=== PATIENT | female | born 1930 | race Caucasian/White ===

== ENCOUNTER 2016-07-22 00:56 | Inpatient (IN) | payer MEDICARE ==
[~2016-07-22] VITALS: Ht 165.1 cm; Wt 66.8 kg
[2016-07-22] VITALS (7 sets, daily range): BP systolic 94–166; BP diastolic 49–98
[~2016-07-22 00:56] MED LIST: AC500T PO; ALDACTONE25 MG; ALMG355B PO; AML5T; APIX5TAB PO; APIX5TAB2 PO; ASP81CT; ASPI-999 PO; ATOR40TA PO; ATOR40TA70 PO; ATOR80TA; ATOR80TA2 PO; ATR20T; ATRV10T; AZIT-21 PO; CHOL10003 PO; CHOL400T3; CHOL400T43 PO; CLOP75TA; CLOP75TA28 PO; DCS100C; DCS100C PO; DESV50TA PO; DESVENLAFAXINE SUCCINATE PO; DIGO250T; ESCT10T; FESO4TAB PO; FESO4TAB2 PO; FISH1CAP15 PO; FRSM20T PO; FRSM40T; FURO40TA4; FURO40TA4 PO; GLIP5TAB13 PO; GLIPIZIDE ER; GLUCOVANCE; HCTZ12.5T; IPRA3AMP11 INH; KCL20TCR; KCL20TCR PO; LEVO25TA5 PO; LINA5TAB PO; LISI40TA; LOPE2CAP PO; LSNP20T; LVT.025T PO; LVT.05T; METO-270 PO; METO25TA PO; METO50TA7; METO50TA7 PO; MTP25TSR PO; MTP50T; NYST1POW15 TOP; OMEG-12 PO; OMEG-160 PO; OMEG-57 PO; OMEG1200 PO; OMEG1CAP51; OMEG1CAP74 PO; OMG1KC; PANT40TA3 PO; PERP1TAB5; PERP1TAB5 PO; PGLT30T; PHEN-633 PO; PHEN100C11 PO; PHN100C PO; PNT40TEC PO; POTA-51 PO; POTA10TA14 PO; PRINIVIL; SACU1TAB PO; SENN-35 PO; SITA50TA PO; SPIR25TA3 PO; THYR30TA21; THYR60TA2; THYROID; TROS60CA; [UNRECOGNIZED DRUG - CODE]; [UNRECOGNIZED DRUG - OTHER]
--- NOTE | 2016-07-22 01:01 | ED Chest Pain ---
General Chief Complaint: Chest Pain Stated Complaint: CHEST PAIN Source: family, EMS, RN notes reviewed Exam Limitations: language barrier (patient is aphasic) History of Present Illness Time seen by provider: 01:05 Initial Comments dyspnea and chest pain @ midnight that was relieved c/ one SL NTG. Timing/Duration: resolved prior to arrival Severity/Quality: moderate Location: substernal Radiation: other (unknown) Activities at Onset: none, rest Prior CP/Workup: cardiac cath, echocardiography, heart attack Modifying Factors: improves with nitroglycerin ASA po HAND CLIPPER: Yes NTG SL HAND CLIPPER: Yes Associated Symptoms: shortness of breath Allergies and Home Medications Allergies Coded Allergies: Penicillins (Verified Allergy, Unknown, 03/24/07) Sulfa (Sulfonamide Antibiotics) (Unverified Allergy, Unknown, 03/24/14) Home Medications Acetaminophen 500 Mg Tablet 500 MG PO Q6H PRN PRN PAIN (Reported) Apixaban 5 Mg Tablet #60 5 MG PO BID Prescribed by: JS HERRERA on 07/06/16 0853 Aspirin 81 Mg Tab.chew #0 81 MG PO DAILY@0900 OVER THE COUNTER Prescribed by: JS HERRERA on 07/06/16 0845 Atorvastatin Calcium 40 Mg Tablet 40 MG PO HS (Reported) Cholecalciferol 1,000 Unit Tablet 1,000 UNIT PO DAILY (Reported) Desvenlafaxine Succinate 50 Mg Tab.sr.24h 50 MG PO DAILY (Reported) Fesoterodine Fumarate 4 Mg Tab.sr.24h 4 MG PO DAILY (Reported) Furosemide 40 Mg Tablet #30 40 MG PO DAILY Prescribed by: JS HERRERA on 07/06/16 0853 Levothyroxine Sodium 25 Mcg Tablet 25 MCG PO DAILY (Reported) Metoprolol Succinate 25 Mg Tab.er.24h #30 25 MG PO DAILY Prescribed by: JS HERRERA on 07/06/16 0853 [place]-3/Dha/Epa/Fish Oil 1 Each Capsule 1,000 MG PO DAILY (Reported) Pantoprazole Sodium 40 Mg Tablet.dr 40 MG PO DAILY (Reported) Perphenazine/Amitriptyline HCl 1 Each Tablet 1 TAB PO HS (Reported) Phenytoin Sodium Extended 100 Mg Capsule 100 MG PO BID (Reported) Potassium Chloride 20 Meq Tablet.er 20 MEQ PO DAILY (Reported) Sacubitril/Valsartan 1 Each Tablet #60 2 TAB PO BID Prescribed by: JS HERRERA on 07/06/16 0853 Sitagliptin Phosphate 50 Mg Tablet 50 MG PO DAILY (Reported) Spironolactone 25 Mg Tablet #30 25 MG PO DAILY Prescribed by: JS HERRERA on 07/06/16 0853 Review of Systems Constitutional: see HPI All Other Systems Reviewed Negative Unless Noted: Yes (Negative excepted noted.) Past Stbxzts-Nkenfg-Jsipzv Hx Patient Social History 2nd Hand Smoke Exposure: No Recent Foreign Travel: No Contact w/Someone Who Travel: No Recent Hopitalizations: Yes (05/28/16) Immunizations Up To Date Tetanus Booster (TDap): Unknown Date of Pneumonia Vaccine: Apr 17, 2010 Date of Influenza Vaccine: Sep 06, 2014 Seasonal Allergies Seasonal Allergies: No Surgeries HX Surgeries: Yes Surgeries: Abdominal, Cardiac, CABG, Eye Surgery, Hysterectomy, Joint Replacement, Oophorectomy, Orthopedic Respiratory Hx Respiratory Disorders: Yes Respiratory Disorders: Pulmonary Embolism Cardiovascular Hx Cardiac Disorders: Yes (CABG X3 VESSELS, CHF) Cardiac Disorders: Chronic Edema/Swelling, Coronary Artery Disease, Deep Vein Thrombosis, Heart Attack, High Cholesterol, Hypertension Neurological Hx Neurological Disorders: Yes (CVA-RIGHT SIDE WEAKNESS AND EXPRESSIVE APHASIA) Neurological Disorders: Stroke 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 System Hx 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 Disorders: Yes (HYST) Sexually Transmitted Disease: No HIV/AIDS: No Female 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 Disorders: Denies 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: Hysterectomy, Menopausal Genitourinary Hx Genitourinary Disorders: Yes (RENAL INSUFFICIENCY ) Genitourinary Disorders: Renal Failure Gastrointestinal Hx Gastrointestinal Disorders: Yes Gastrointestinal Disorders: Gastroesophageal Reflux, Chronic Constipation Musculoskeletal Hx Musculoskeletal Disorders: Yes (FALLS) Musculoskeletal Disorders: Degenerate Disk Disease, Arthritis, Chronic Back Pain Endocrine Hx Endocrine Disorders: Yes Endocrine Disorders: Hypothyroidsim, Diabetes, Non-Insulin dep HEENT HX ENT Disorders: Yes (LEFT EYE CATARACT REMOVAL) HEENT Disorders: Cataract Loss of Vision: Denies Hearing Impairment: Hard of Hearing Cancer Hx Cancer: Yes Cancer: Melanoma Psychosocial Hx Psychiatric Problems: Yes Behavioral Health Disorders: Sleep Difficulties, Anxiety, Depression Integumentary HX Skin/Integumentary Disorder: Yes Skin/Integumentary Disorders: Psoriasis Blood Transfusions Hx Blood Disorders: Yes (PE) Adverse Reaction to a Blood Tr: Yes (fever) Physical Exam Vital Signs Vital Sign - Last 12Hours 07/22/16 00:58 Temp 98.4 Pulse 97 Resp 18 B/P 139/60 Pulse Ox 100 O2 Delivery Nasal Cannula Capillary Refill : General Appearance: No Apparent Distress WD/WN Neck: Normal Inspection Respiratory: No Respiratory Distress Cardiovascular: Regular Rate, Rhythm Gastrointestinal: Soft Rectal: Deferred Extremity: No Pedal Edema Neurologic/Psychiatric: Alert No Motor/Sensory Deficits Skin: Warm/Dry Progress/Results/Core Measures Results/Orders Lab Results Laboratory Tests Test 07/22/16 01:00 07/22/16 02:49 Range/Units Alanine Aminotransferase (ALT/SGPT) 24 0-55 U/L Albumin 3.9 3.2-4.5 G/DL Alkaline Phosphatase 81 40-136 U/L Anion Gap 16 H 5-14 MMOL/L Aspartate Amino Transf (AST/SGOT) 25 5-34 U/L B-Type Natriuretic Peptide 721.2 H <100.0 PG/ML BUN/Creatinine Ratio 11 Basophils # (Auto) 0.0 0.0-0.1 10^3/uL Basophils (%) (Auto) 0 0-10 % Blood Urea Nitrogen 14 7-18 MG/DL Calcium Level 9.1 8.5-10.1 MG/DL Carbon Dioxide Level 23 21-32 MMOL/L Chloride Level 103 98-107 MMOL/L Creatinine 1.29 0.60-1.30 MG/DL Eosinophils # (Auto) 0.1 0.0-0.3 10^3/uL Eosinophils (%) (Auto) 2 0-10 % Estimat Glomerular Filtration Rate 39 Glucose Level 161 H 70-105 MG/DL Hematocrit 39 35-52 % Hemoglobin 13.0 11.5-16.0 G/DL Lipase 47 8-78 U/L Lymphocytes # (Auto) 2.2 1.0-4.0 X 10^3 Lymphocytes (%) (Auto) 31 12-44 % Magnesium Level 1.8 1.8-2.4 MG/DL Mean Corpuscular Hemoglobin 33 25-34 PG Mean Corpuscular Hemoglobin Concent 34 32-36 G/DL Mean Corpuscular Volume 99 80-99 FL Mean Platelet Volume 10.9 H 7.4-10.4 FL Monocytes # (Auto) 0.5 0.0-1.0 X 10^3 Monocytes (%) (Auto) 7 0-12 % Neutrophils # (Auto) 4.3 1.8-7.8 X 10^3 Neutrophils (%) (Auto) 61 42-75 % Phenytoin (Dilantin) Level 3.3 L 10.0-20.0 UG/ML Platelet Count 146 130-400 10^3/uL Potassium Level 3.3 L 3.6-5.0 MMOL/L Red Blood Count 3.94 L 4.35-5.85 10^6/uL Red Cell Distribution Width 14.2 10.0-14.5 % Sodium Level 142 135-145 MMOL/L Total Bilirubin 0.5 0.1-1.0 MG/DL Total Protein 6.2 L 6.4-8.2 G/DL Troponin I < 0.30 0.90 *H <0.30 NG/ML White Blood Count 7.0 4.3-11.0 10^3/uL My Orders Orders-ANNIKA SUTHERLAND DO Saline Lock/Iv-Start (07/22/16 01:02) Ekg Tracing (07/22/16 01:02) BNP (07/22/16 01:02) Cbc With Automated Diff (07/22/16 01:02) Comprehensive Metabolic Panel (07/22/16 01:02) Lipase (07/22/16 01:02) Magnesium (07/22/16 01:02) Phenytoin (Dilantin) (07/22/16 01:02) Troponin I (07/22/16 01:02) Ua Culture If Indicated (07/22/16 01:02) Chest 1 View, Ap/Pa Only (07/22/16 01:02) Troponin I (07/22/16 02:47) Vital Signs/I&O Vital Sign - Last 12Hours 07/22/16 07/22/16 00:58 00:58 Temp 98.4 Pulse 97 Resp 18 B/P 139/60 Pulse Ox 100 O2 Delivery Nasal Cannula ECG Initial ECG Impression Date: Jul 22, 2016 Initial ECG Impression Time: 00:58 Initial ECG Rate: 97 Initial ECG Rhythm: Normal Sinus Initial ECG Impression: Nonspecific Changes Initial ECG Comparisson: Unchanged Comment LVH c/ IVCD and secondary repolarization abnormality Diagnostic Imaging Diagonstic Imaging: Xray Plain Films/CT/US/NM/MRI: chest Reviewed: Reviewed by Me (chronic changes) Departure Communication Time/Spoke to Admitting Phy: 03:20 Time/Spoke to Consulting Physi: 03:25 Impression Impression: Primary Impression: Chest pain Additional Impressions: Elevated troponin I measurement History of CHF (congestive heart failure) CAD (coronary artery disease) Disposition: ADMITTED INPATIENT Condition: Stable Decision to Admit Reason: Admit from ER (General) Decision to Admit/Date: Jul 22, 2016 Time/Decision to Admit Time: 03:25 Departure-Patient Inst. Referrals: OUSMANE LONG DO (PCP/Family) Primary Care Physician ANNIKA SUTHERLAND DO Jul 22, 2016 01:01
--- OUTSIDE RECORDS SUMMARY | 2016-07-22 01:03 | XMS REPORT | Continuity of Care Document ---
Author Author [facility] Organization [facility] Address Unknown Phone Unavailable Care Team Providers Care Senior Storage Engineer Name Role Phone OUSMANE LONG DO PCP Insurance Providers Payer Name Policy Number Subscriber Name Relationship Wps Medicare [id number] Lupe Verde 19 Self / Same As Patient Blue Cross [facility] Supp [id number] Lupe Verde 19 Self / Same As Patient Advance Directives Directive Response Recorded Date/Time Advance Directives No 04/27/16 7:00am Health Care Power of Learning And Development Officer Maximino Valle, Daughter 04/27/16 7:00am Organ Donor No 04/27/16 7:00am Resuscitation Status Full Code 04/27/16 7:00am Chief Complaint and Reason for Visit Chief Complaint Lower Extremity Reason for Visit Inflammation Problems Active Problems Medical Problem Onset Date Status Chest pain Unknown Acute Dyspnea Unknown Acute History of CHF (congestive heart failure) Unknown Acute History of CHF (congestive heart failure) Unknown Acute Inflammation Unknown Acute Seizure Unknown Acute Seizure Unknown Acute Stroke Unknown Acute Medications Current Home Medications Medication Dose Units Route Directions Days/Qty Instructions Start Date Levothyroxine Sodium 25 Mcg 25 Mcg Oral Daily 11/11/12 Potassium Chloride 20 Meq 20 Meq Oral 1800 11/11/12 Spironolactone 25 Mg 25 Mg Oral Daily 11/11/12 Cholecalciferol 1,000 Unit 1,000 Unit Oral Daily 11/11/12 Pantoprazole Sod 40 Mg 40 Mg Oral 0700 11/11/12 Docusate Sodium 100 Mg 100 Mg Oral Daily as needed for Constipation 11/13/12 Atorvastatin Calcium 40 Mg 40 Mg Oral Bedtime 02/07/13 Acetaminophen 500 Mg 500 Mg Oral Every 6 Hours as needed for Pain Furosemide 20 Mg 40 Mg Oral Daily 02/19/13 Sitagliptin Phosphate 50 Mg 50 Mg Oral Daily 02/19/13 Desvenlafaxine Succinate 50 Mg 50 Mg Oral Daily 03/23/14 Fesoterodine Fumarate 4 Mg 4 Mg Oral Daily 03/23/14 Perphenazine/Amitriptyline Hcl 1 Each 1 Tab Oral Bedtime 2MG/25MG TABLET 03/23/14 [place]-3/Dha/Epa/Fish Oil 1,000 Mg 1,200 Mg Oral Daily 05/18/14 Phenytoin Sodium 100 Mg 100 Mg Oral Twice A Day 05/18/14 Loperamide Hcl (Imodium) 2 Mg 2 Mg Oral Four Times Daily as needed for Diarrhea MAXIMUN OF 4 DOSE IN 24 HOURS 05/18/14 Metoprolol Succinate 25 Mg 25 Mg Oral Daily 05/18/14 Al Hydroxide/Mg Hydroxide 30 Ml 30 Ml Oral Every 4HRS as needed for Indigestion 05/18/14 Albuterol/Ipratropium 3 Ml 3 Ml Inhalation Every 2 Hours as needed for Shortness Of Breath 05/18/14 Apixaban 5 Mg 5 Mg Oral Twice A Day 30 10 MG PO BID X 7 DAYS THEN 5 MG PO BID 05/20/14 Past Home Medications Medication Directions Ordered Status Pioglitazone Hcl 30 Mg Tablet, 03/24/07 Discontinued [Glucovance] , 03/24/07 Discontinued Hydrochlorothiazide 12.5 Mg Capsule, 03/24/07 Discontinued [Prinivil] , 03/24/07 Discontinued Digoxin 250 Mcg Tablet, 03/24/07 Discontinued Amlodipine Besylate 5 Mg Tablet, 03/24/07 Discontinued Atorvastatin Calcium 10 Mg Tablet, 03/24/07 Discontinued Aspirin 81 Mg Tablet, 03/24/07 Discontinued [Perphenamint] , 03/24/07 Discontinued Metoprolol Tartrate (Lopressor) 50 Mg Tablet, 06/07/07 Discontinued Furosemide 40 Mg Tablet, 06/07/07 Discontinued [Glipizide Er] , 06/07/07 Discontinued Potassium Chloride 20 Meq Tab, 06/07/07 Discontinued Atorvastatin Calcium 20 Mg Tablet, 06/07/07 Discontinued Escitalopram Oxalate 10 Mg Tablet, 06/07/07 Discontinued Lisinopril 20 Mg Tablet, 06/07/07 Discontinued [Perphenlamit 2-25] , 06/07/07 Discontinued Aspirin 81 Mg Tablet, 06/07/07 Discontinued Docusate Sodium 100 Mg Capsule, 06/07/07 Discontinued Fish Oil 1,000 Mg Cap, 06/07/07 Discontinued Thyroid 30 Mg Tablet, 04/24/09 Discontinued Thyroid 60 Mg Tablet, 04/24/09 Discontinued [Thyroid] , 04/24/09 Discontinued [place]-3 Fatty Acids/Fish Oil 1 Each Capsule, 07/25/09 Discontinued Levothyroxine Sodium 50 Mcg Tablet, 07/25/09 Discontinued Perphenazine/Amitriptyline Hcl 1 Each Tablet, 07/25/09 Discontinued Furosemide (Lasix) 40 Mg Tablet, 07/25/09 Discontinued Metoprolol Succinate 50 Mg Tab, 07/25/09 Discontinued Lisinopril 40 Mg Tablet, 07/25/09 Discontinued Atorvastatin Calcium 80 Mg Tablet, 07/25/09 Discontinued Spironolactone 25 Mg Tablet, 07/25/09 Discontinued Cholecalciferol 400 Unit Tab.chew, 07/25/09 Discontinued Clopidogrel Bisulfate 75 Mg Tablet, 07/25/09 Discontinued Digoxin 250 Mcg Tablet, 07/25/09 Discontinued Trospium Chloride 60 Mg Cap.sr.24h, 07/25/09 Discontinued Fesoterodine Fumarate 4 Mg Tab.sr.24h, 8 Mg Oral Daily 11/11/12 Discontinued [place]-3/Dha/Epa/Fish Oil 1 Each Capsule.dr, 1000 Mg Oral Daily 11/11/12 Discontinued Docusate Sodium 100 Mg Capsule, 100 Mg Oral Daily 11/11/12 Discontinued Glipizide (Glucotrol) 5 Mg Tablet, 2.5 Mg Oral Daily 11/11/12 Discontinued Metoprolol Succinate 50 Mg Tab.sr.24h, 50 Mg Oral Daily 11/11/12 Discontinued Clopidogrel Bisulfate 75 Mg Tablet, 75 Mg Oral Daily 11/11/12 Discontinued Desvenlafaxine Succinate 50 Mg Tab.sr.24h, 50 Mg Oral Daily 11/11/12 Discontinued Perphenazine/Amitriptyline Hcl 1 Each Tablet, 2-25 Mg Oral Bedtime 11/11/12 Discontinued Linagliptin 5 Mg Tablet, 2.5 Mg Oral Daily 11/11/12 Discontinued Furosemide (Lasix) 40 Mg Tablet, 40 Mg Oral Daily 11/11/12 Discontinued Sennosides/Docusate Sodium 1 Tab Tablet, 1 Tab Oral Daily 11/11/12 Discontinued Atorvastatin Calcium 80 Mg Tablet, 40 Mg Oral Bedtime 01/29/13 Discontinued Furosemide (Lasix) 40 Mg Tablet, 40 Mg Oral Daily 02/09/13 Discontinued Linagliptin 5 Mg Tablet, 2.5 Mg Oral Daily 02/09/13 Discontinued Metoprolol Succinate (Metoprolol Er 25MG) 25 Mg Tab, 12.5 Mg Oral Daily 02/19 Discontinued Nystatin 1 Each Powder.ea., 0 Topically Three Times A Day 02/19/13 Discontinued Vitamin D 400 Intlu Tab, 1000 Mg Oral Daily 12/06/13 Discontinued [Desvenlafaxine Succinate] 50 Mg Tab, 0 Mg Oral Daily 12/18/13 Discontinued [place]-3/Dha/Epa/Fish Oil 1,200 Mg Capsule, 1200 Mg Oral Daily 03/23/14 Discontinued Phenytoin Sodium 100 Mg Cap, 100 Mg Oral Three Times A Day 03/26/14 Discontinued [place]-3/Dha/Epa/Fish Oil 1 Each Capsule, 1000 Mg Oral Daily 05/18/14 Discontinued Albuterol/Ipratropium 3 Ml Nebu, 3 Ml Inhalation Twice A Day 05/18/14 Discontinued Azithromycin (Zpak) 250 Mg Tab, 1 Tab Oral Bedtime 05/18/14 Discontinued Social History Social History Problem Response Recorded Date/Time Alcohol Use Denies Use 10/02/2014 4:44pm Recreational Drug Use No 10/02/2014 4:44pm Recent Foreign Travel No 03/23/2014 2:40pm Recent Infectious Disease Exposure No 03/23/2014 2:40pm Hospitalization with Isolation Denies 03/26/2014 3:02pm Sexually Transmitted Disease No 04/27/2016 7:00am HIV/AIDS No 04/27/2016 7:00am Smoking Status Never a Smoker 04/27/2016 7:00am Recent Hopitalizations N RT KNEE REPLACEMENT, OPEN HEART SURG 2007, CHILDBIRTH , DAY SURG 04/27/2016 7:00am Sexually Transmitted Disease No 04/27/2016 7:00am Hospitalization with Isolation Denies 03/26/2014 3:02pm Query Response Start Date Stop Date Smoking Status Never a Smoker Hospital Discharge Instructions No hospital discharge instructions. Plan of Care Discharge Date 04/27/16 11:42am Disposition 01 HOME, SELF-CARE Condition at Discharge Improved Instructions/Education Provided NO INSTRUCTIONS GIVEN Prescriptions See Medication Section Referrals OUSMANE LONG DO - Primary Care Physician Additional Instructions/Education Prednisone and Hycomine as prescribed. Close follow-up with your doctor on Saturday. Limited weightbearing. Return if any problems or questions. All discharge instructions reviewed with patient and/or family. Voiced understanding. Functional Status No functional status results. Allergies, Adverse Reactions, Alerts Allergen Type Severity Reaction Status Last Updated Penicillins ([id number]) Allergy Unknown Active 03/24/07 Sulfa (Sulfonamide Antibiotics) ([id number]) Allergy Unknown Active 04/27 Immunizations No immunization records. Vital Signs Acute Vital Signs Vital Response Date/Time Temperature (Fahrenheit) 98.1 degrees F (97.6 - 99.5) 04/27/2016 7:00am Temperature (Calculated Celsius) 36.27121 degrees C (36.4 - 37.5) 04/27/2016 7:00am Temperature Source Temporal 04/27/2016 7:00am Pulse Rate (adult) 95 bpm (60 - 90) 04/27/2016 7:00am Respiratory Rate 16 bpm (12 - 24) 04/27/2016 7:00am O2 Sat by Pulse Oximetry 96 % (88 - 100) 04/27/2016 7:00am Blood Pressure 135/70 mm Hg 04/27/2016 7:00am Blood Pressure Mean 91 mm Hg 04/27/2016 7:00am Pain Numeric Pain Scale 6 04/27/2016 9:52am Height (Feet) 5 feet 04/27/2016 7:00am Height (Inches) 2 inches 04/27/2016 7:00am Height (Calculated Centimeters) 157.013561 cm 04/27/2016 7:00am Weight (Pounds) 145 pounds 04/27/2016 7:00am Weight (Ounces) 0.0 oz 04/27/2016 7:00am Weight (Calculated Grams) 73203.894 gm 04/27/2016 7:00am Weight (Calculated Kilograms) 65.737466 kilograms 04/27/2016 7:00am Calculated BMI 26.52 04/27/2016 7:00am Capillary Refill Capillary Refill Less Than 3 Seconds 04/27/2016 7:00am Results Laboratory Results Test Name Result Units Flags Reference Collection Date/Time Result Date/ Time Comments White Blood Count 5.5 10^3/uL 4.3-11.0 04/27/2016 7:35am 04/27/2016 7: 47am Red Blood Count 4.05 10^6/uL L 4.35-5.85 04/27/2016 7:35am 04/27/2016 7: 47am Hemoglobin 13.5 G/DL 11.5-16.0 04/27/2016 7:35am 04/27/2016 7:47am Hematocrit 40 % 35-52 04/27/2016 7:35am 04/27/2016 7:47am Mean Corpuscular Volume 98 FL 80-99 04/27/2016 7:35am 04/27/2016 7: 47am Mean Corpuscular Hemoglobin 33 PG 25-34 04/27/2016 7:35am 04/27/2016 7: 47am Mean Corpuscular Hemoglobin Concent 34 G/DL 32-36 04/27/2016 7:35am 7:47am Red Cell Distribution Width 13.5 % 10.0-14.5 04/27/2016 7:35am 2015 7:47am Platelet Count 121 10^3/uL L 130-400 04/27/2016 7:35am 04/27/2016 7:47am Mean Platelet Volume 10.9 FL H 7.4-10.4 04/27/2016 7:35am 04/27/2016 7: 47am Neutrophils (%) (Auto) 62 % 42-75 04/27/2016 7:35am 04/27/2016 7:47am Lymphocytes (%) (Auto) 20 % 12-44 04/27/2016 7:35am 04/27/2016 7:47am Monocytes (%) (Auto) 15 % H 0-12 04/27/2016 7:35am 04/27/2016 7:47am Eosinophils (%) (Auto) 2 % 0-10 04/27/2016 7:35am 04/27/2016 7:47am Basophils (%) (Auto) 0 % 0-10 04/27/2016 7:35am 04/27/2016 7:47am Neutrophils # (Auto) 3.4 X 10^3 1.8-7.8 04/27/2016 7:35am 04/27/2016 7: 47am Lymphocytes # (Auto) 1.1 X 10^3 1.0-4.0 04/27/2016 7:35am 04/27/2016 7: 47am Monocytes # (Auto) 0.8 X 10^3 0.0-1.0 04/27/2016 7:35am 04/27/2016 7: 47am Eosinophils # (Auto) 0.1 10^3/uL 0.0-0.3 04/27/2016 7:35am 04/27/2016 7 :47am Basophils # (Auto) 0.0 10^3/uL 0.0-0.1 04/27/2016 7:35am 04/27/2016 7: 47am Erythrocyte Sedimentation Rate 13 MM/HR 0-30 04/27/2016 7:35am 2015 8:08am Sodium Level 141 MMOL/L 135-145 04/27/2016 7:35am 04/27/2016 8:07am Potassium Level 3.9 MMOL/L 3.6-5.0 04/27/2016 7:35am 04/27/2016 8:07am Chloride Level 104 MMOL/L 98-107 04/27/2016 7:35am 04/27/2016 8:07am Carbon Dioxide Level 27 MMOL/L 21-32 04/27/2016 7:35am 04/27/2016 8: 07am Anion Gap 10 MMOL/L 5-14 04/27/2016 7:35am 04/27/2016 8:07am Blood Urea Nitrogen 12 MG/DL 7-18 04/27/2016 7:35am 04/27/2016 8:07am Creatinine 1.06 MG/DL 0.60-1.30 04/27/2016 7:35am 04/27/2016 8:07am BUN/Creatinine Ratio 11 04/27/2016 7:35am 04/27/2016 8:07am Estimat Glomerular Filtration Rate 49 04/27/2016 7:35am 04/27/2016 8:07am GFR INTERPRETIVE DATA UNITS FOR ESTIMATED GFR (eGFR): mL/min/1.73 M2 REFERENCE RANGE FOR ESTIMATED GFR (eGFR) eGFR NORMAL eGFR >60 MODERATELY DECREASED eGFR 30-59 SEVERLY DECREASED eGFR 15-29 KIDNEY FAILURE <15 (OR DIALYSIS) Glucose Level 125 MG/DL H 70-105 04/27/2016 7:35am 04/27/2016 8:07am Uric Acid 6.5 MG/DL 2.6-7.2 04/27/2016 7:35am 04/27/2016 8:07am Calcium Level 9.3 MG/DL 8.5-10.1 04/27/2016 7:35am 04/27/2016 8:07am Total Bilirubin 0.6 MG/DL 0.1-1.0 04/27/2016 7:35am 04/27/2016 8:07am Alkaline Phosphatase 69 U/L 40-136 04/27/2016 7:35am 04/27/2016 8:07am Aspartate Amino Transf (AST/SGOT) 18 U/L 5-34 04/27/2016 7:35am 2015 8:07am Alanine Aminotransferase (ALT/SGPT) 15 U/L 0-55 04/27/2016 7:35am 04/27 8:07am Total Protein 6.2 G/DL L 6.4-8.2 04/27/2016 7:35am 04/27/2016 8:07am Albumin 3.6 G/DL 3.2-4.5 04/27/2016 7:35am 04/27/2016 8:07am Procedures No known history of procedures. Encounters Encounter Location Arrival/Admit Date Discharge/Depart Date Attending Provider Departed Emergency Room [facility] 04/27/16 6:50am 04/27 11:42am CORINE DE LA PAZ MD Recent Diagnosis
[2016-07-22 01:08] LABS: BASOPHILS % (AUTO) 0 % (0-10); EOSINOPHILS # (AUTO) 0.1 10^3/uL (0.0-0.3); EOSINOPHILS % (AUTO) 2 % (0-10); LYMPHOCYTES # (AUTO) 2.2 X 10^3 (1.0-4.0); LYMPHOCYTES % (AUTO) 31 % (12-44); MEAN CORPUSCULAR HEMOGLOBIN 33 PG (25-34); MEAN CORPUSCULAR HGB CONC 34 G/DL (32-36); MEAN CORPUSCULAR VOLUME 99 FL (80-99); MEAN PLATELET VOLUME 10.9 FL (7.4-10.4); MONOCYTES # (AUTO) 0.5 X 10^3 (0.0-1.0); MONOCYTES % (AUTO) 7 % (0-12); NEUTROPHILS # (AUTO) 4.3 X 10^3 (1.8-7.8); NEUTROPHILS % (AUTO) 61 % (42-75); PLATELET COUNT 146 10^3/uL (130-400); RED BLOOD COUNT 3.94 10^6/uL (4.35-5.85); RED CELL DISTRIBUTION WIDTH 14.2 % (10.0-14.5)
[2016-07-22 01:33] LABS: ALANINE AMINOTRANSFERASE 24 U/L (0-55); ALBUMIN 3.9 G/DL (3.2-4.5); ANION GAP 16 MMOL/L (5-14); ASPARTATE AMINO TRANSFERASE 25 U/L (5-34); BILIRUBIN,TOTAL 0.5 MG/DL (0.1-1.0); BLOOD UREA NITROGEN 14 MG/DL (7-18); BUN/CREATININE RATIO 11; CALCIUM 9.1 MG/DL (8.5-10.1); CARBON DIOXIDE 23 MMOL/L (21-32); CHLORIDE 103 MMOL/L (98-107); CREATININE SERUM 1.29 MG/DL (0.60-1.30); GFR ESTIMATED 39; GLUCOSE 161 MG/DL (70-105); LIPASE 47 U/L (8-78); MAGNESIUM 1.8 MG/DL (1.8-2.4); POTASSIUM 3.3 MMOL/L (3.6-5.0); SODIUM 142 MMOL/L (135-145); TOTAL PROTEIN 6.2 G/DL (6.4-8.2)
[2016-07-22 01:40] LABS: TROPONIN I < 0.30 NG/ML (<0.30)
[2016-07-22] MEDS ORDERED: NITROGLYCERIN SUBLINGUAL 0.4 MG TAB (NITROSTAT) SL ONE (04:46)
[2016-07-22] MEDS: NITROGLYCERIN SUBLINGUAL 0.4 MG TAB (NITROSTAT) SL PRN (05:00)
[2016-07-22] MEDS ORDERED: FLU TRIvalent (5 YOA+) 2016-17 (AFLURIA) 0.5 ML IM ONE (07:15)
--- NOTE | 2016-07-22 07:21 | Diagnostic Imaging Report ---
INDICATION: Chest pain. COMPARISON: July 05, 2016 TECHNIQUE: Single frontal radiograph of the chest dated July 22, 2016. FINDINGS: Postsurgical changes of a CABG are again identified. The cardiac silhouette is at the upper limits of normal in size, though stable. No significant pulmonary vascular congestion. Low lung volumes with minimal left greater than right pulmonary opacities. No significant pleural effusion. No pneumothorax. Scattered osseous degenerative changes without acute osseous abnormality. IMPRESSION: Low lung volumes with mild bibasilar left greater than right atelectasis and/or pneumonitis. Dictated by: Dictated on workstation # [id number]
--- NOTE | 2016-07-22 09:24 | History & Physicial ---
History of Present Illness History of Present Illness Reason for visit/HPI PT IS AN 85 Y/O FEMALE WHO IS A PATIENT OF DR. 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 THE PATIENT PRESENTED TO THE EMERGENCY DEPARTMENT WITH COMPLAINT OF CHEST DISCOMFORT. SHE TOOK A NITRO PRIOR TO PRESENTING TO THE HOSPITAL AND HAD RESOLUTION OF HER CHEST DISCOMFORT. THE PATIENT HAD AN INITIALLY NORMAL TROPONIN, BUT REPEAT TROPONIN WENT FROM NORMAL TO 0.9, PT WAS THUS ADMITTED TO THE HOSPITAL FOR FURTHER TREATMENT/WORK- UP, THE EMERGENCY DEPT PHYSICIAN CONTACTED THE CHECK WRITER SALESPERSON RESERVOIR ENGINEERING ADVISOR FOR CONSULTATION IN THE MORNING. Date of Admission Jul 22, 2016 at 03:32 I consulted on this patient on 07/22/16 09:24 Attending Physician Joanna Zamora MD Admitting Physician Rian Long DO Consult MILLER HYDE MD Allergies and Home Medications Allergies Coded Allergies: Penicillins (Verified Allergy, Unknown, 03/24/07) Sulfa (Sulfonamide Antibiotics) (Unverified Allergy, Unknown, 03/24/14) Home Medications Acetaminophen 500 Mg Tablet 500 MG PO Q6H PRN PRN PAIN (Reported) Apixaban 5 Mg Tablet #60 5 MG PO BID Prescribed by: JS HERRERA on 07/06/16 0853 Aspirin 81 Mg Tab.chew #0 81 MG PO DAILY@0900 OVER THE COUNTER Prescribed by: JS HERRERA on 07/06/16 0845 Atorvastatin Calcium 40 Mg Tablet 40 MG PO HS (Reported) Cholecalciferol 1,000 Unit Tablet 1,000 UNIT PO DAILY (Reported) Desvenlafaxine Succinate 50 Mg Tab.sr.24h 50 MG PO DAILY (Reported) Fesoterodine Fumarate 4 Mg Tab.sr.24h 4 MG PO DAILY (Reported) Furosemide 40 Mg Tablet #30 40 MG PO DAILY Prescribed by: JS HERRERA on 07/06/16 0853 Levothyroxine Sodium 25 Mcg Tablet 25 MCG PO DAILY (Reported) Metoprolol Succinate 25 Mg Tab.er.24h #30 25 MG PO DAILY Prescribed by: JS HERRERA on 07/06/16 0853 [place]-3/Dha/Epa/Fish Oil 1 Each Capsule 1,000 MG PO DAILY (Reported) Pantoprazole Sodium 40 Mg Tablet.dr 40 MG PO DAILY (Reported) Perphenazine/Amitriptyline HCl 1 Each Tablet 1 TAB PO HS (Reported) Phenytoin Sodium Extended 100 Mg Capsule 100 MG PO BID (Reported) Potassium Chloride 20 Meq Tablet.er 20 MEQ PO DAILY (Reported) Sacubitril/Valsartan 1 Each Tablet #60 2 TAB PO BID Prescribed by: JS HERRERA on 07/06/16852 Sitagliptin Phosphate 50 Mg Tablet 50 MG PO DAILY (Reported) Spironolactone 25 Mg Tablet #30 25 MG PO DAILY Prescribed by: JS HERRERA on 07/06/16 0853 Past Qfhngza-Crbjii-Wgvpor Hx Patient Social History Marrital Status: Living Status: LIVES AT HOME ALONE - FAMILY CHECKS FREQUENTLY Employed/Student: retired Alcohol Use: Denies Use Recreational Drug Use: No Smoking Status: Never a Smoker 2nd Hand Smoke Exposure: No Physical Abuse Screen: No Sexual Abuse: No Recent Foreign Travel: No Contact w/other who traveled: No Recent Hopitalizations: No Recent Infectious Disease Expo: No Immunizations Up To Date Tetanus Booster (TDap): Unknown Date of Pneumonia Vaccine: Apr 17, 2010 Date of Influenza Vaccine: Sep 06, 2014 Seasonal Allergies Seasonal Allergies: No Surgeries HX Surgeries: Yes Surgeries: Abdominal, Cardiac, CABG, Eye Surgery, Hysterectomy, Joint Replacement, Oophorectomy, Orthopedic Respiratory Hx Respiratory Disorders: Yes Cardiovascular Hx Cardiovascular Disorders: Yes (CABG X3 VESSELS, CHF) Cardiac Disorders: Chronic Edema/Swelling, Coronary Artery Disease, Deep Vein Thrombosis, Heart Attack, High Cholesterol, Hypertension Neurological Hx Neurological Disorders: Yes (CVA-RIGHT SIDE WEAKNESS AND EXPRESSIVE APHASIA) Neurological Disorders: Stroke 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 System Hx 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 Disorders: Yes (HYST) Sexually Transmitted Disease: No HIV/AIDS: No Female 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 Disorders: Denies Genitourinary Hx Genitourinary Disorders: Yes (RENAL INSUFFICIENCY ) Genitourinary Disorders: Renal Failure Gastrointestinal Hx Gastrointestinal Disorders: Yes Gastrointestinal Disorders: Gastroesophageal Reflux, Chronic Constipation Musculoskeletal Hx Musculoskeletal Disorders: Yes (FALLS) Musculoskeletal Disorders: Degenerate Disk Disease, Arthritis, Chronic Back Pain Endocrine Hx Endocrine Disorders: Yes Endocrine Disorders: Hypothyroidsim, Diabetes, Non-Insulin dep HEENT HX ENT Disorders: Yes (LEFT EYE CATARACT REMOVAL) HEENT Disorders: Cataract Loss of Vision: Denies Hearing Impairment: Hard of Hearing Cancer Hx Cancer: Yes Cancer: Melanoma Psychosocial Hx Psychiatric Problems: Yes Behavioral Health Disorders: Sleep Difficulties, Anxiety, Depression Integumentary HX Skin/Integumentary Disorder: Yes Skin/Integumentary Disorders: Psoriasis Blood Transfusions Hx Blood Disorders: Yes (PE) Adverse Reaction to a Blood Tr: Yes (fever) Reviewed Nursing Assessment Reviewed/Agree w Nursing PMH: Yes Family Medical History Significant Family History: Heart Disease, Diabetes, Hypertension Family Hx: Diabetes mellitus 19 MOTHER FH: cirrhosis G8 SISTER Myocardial infarction 19 FATHER 19 MOTHER G8 BROTHER G8 BROTHER G8 BROTHER G8 BROTHER G8 BROTHER G8 SISTER Constitutional: No dizziness, No fever, malaise EENTM: No mouth pain, No mouth swelling, No throat pain, No throat swelling Respiratory: No cough, dyspnea on exertion Cardiovascular: chest painNo edema Gastrointestinal: No abdominal pain, No constipation, No diarrhea Genitourinary: no symptoms reported Musculoskeletal: No back pain, joint pain Skin: no symptoms reported Psychiatric/Neurological: Denies Anxiety, Depressed All Other Systems Reviewed Negative Unless Noted: Yes Physical Exam Vital Signs Vital Sign - Last 12Hours 07/22/16 07/22/16 07/22/16 00:58 03:39 08:10 Temp 98.4 Pulse 97 Resp 18 B/P 139/60 Pulse Ox 100 O2 Delivery Nasal Cannula O2 Flow Rate 2 FiO2 99 Capillary Refill : Less Than 3 Seconds General Appearance: No Apparent Distress Thin Eyes: Bilateral Eye EOMI, Bilateral Eye Normal Inspection, Bilateral Eye PERRL HEENT: PERRL/EOMI Pharynx Normal Neck: Full Range of Motion Supple Respiratory: Chest Non Tender Lungs Clear Normal Breath Sounds No Accessory Muscle Use Cardiovascular: Regular Rate, Rhythm Gastrointestinal: Normal Bowel Sounds No Organomegaly No Pulsatile Mass Non Tender Soft Rectal: Deferred Back: Normal Inspection Extremity: Normal Capillary Refill No Pedal Edema Neurologic/Psychiatric: Alert Normal Mood/Affect Skin: Warm/Dry Lymphatic: No Adenopathy Assessment/Plan Assessment and Plan CHEST PAIN CONGESTIVE HEART FAILURE WITH EF OF 30% ELEVATED TROPONIN HYPERTENSION CORONARY ARTERY DISEASE HYPERLIPIDEMIA GERD HX OF CVA DIABETES MELLITUS DEPRESSION CHEST PAIN WITH ELEVATED TROPONIN - AND CONGESTIVE HEART FAILURE WITH EF OF 30% - PT WITH CHEST PAIN RESOLUTION AFTER NITRO - RESTART HOME MEDICATIONS - DISCUSSED WITH DR. HYDE - HE WILL REVIEW HER MEDS AND EITHER START ON IMDUR OR RANEXA. HYPERTENSION - RESTARTED HOME MEDS. HYPERLIPIDEMIA - RESTARTED LIPITOR GERD - RESTARTED PPI HX OF CVA - SUPPORTIVE CARE DIABETES MELLITUS - RESTARTED HOME MEDS, CHECK FSBS AC AND HS DEPRESSION - RESTARTED HOME MEDICATIONS, SUPPORTIVE CARE Admission Diagnosis CHEST PAIN ELEVATED TROPONIN HYPERTENSION CORONARY ARTERY DISEASE HYPERLIPIDEMIA GERD HX OF CVA DIABETES MELLITUS DEPRESSION Clinical Quality Measures AMI/AHF: ASA po Prior to arrival: Yes DVT/VTE Risk/Contraindication: Risk Factor Score Per Nursin RFS Level Per Nursing on Admit: 4+=Very High JOANNA ZAMORA MD Jul 22, 2016 09:24
[2016-07-22] MEDS ORDERED: ACETAMINOPHEN 500 MG TAB (TYLENOL) PO PRN (10:00)
--- NOTE | 2016-07-22 10:04 | Consultation-Cardiology ---
HPI-Cardiology Cardiology Consultation Date of Consultation 07/22/16 Date of Admission Indication: Chest pain HPI 85-year-old lady with history of coronary artery disease, congestive heart failure with ejection fraction 30 percent, multiple myocardial infarction in the past, last non-ST ID was in May 2016, conservative management was recommended per patient request. She was in her usual state of health until yesterday evening when she started having chest pain, described it as tightness in the retrosternal area. Took nitroglycerin felt better, EMS were called and she was brought to the emergency room, she was still having some shortness of breath at that time. Patient was admitted, had another episode of chest pain last night. [place] tightness in her chest, also responded to sublingual nitroglycerin. Denied any palpitation, had some shortness of breath and pedal edema, no syncope, no fever or chills. Has been compliant with her medications. Home Medications & Allergies Allergies: Coded Allergies: Penicillins (Verified Allergy, Unknown, 03/24/07) Sulfa (Sulfonamide Antibiotics) (Unverified Allergy, Unknown, 03/24/14) Home Medication List Reviewed: Yes IEI-Rijcjs-Jedjgn Hx Patient Social History Marital Status: Employed/Student: retired Alcohol Use: Denies Use Recreational Drug Use: No Smoking Status: Never a Smoker 2nd Hand Smoke Exposure: No Recent Foreign Travel: No Recent Infectious Disease Expo: No Recent Hopitalizations: No Physical Abuse Screen: No Sexual Abuse: No Immunizations Up To Date Tetanus Booster (TDap): Unknown Date of Pneumonia Vaccine: Apr 17, 2010 Date of Influenza Vaccine: Sep 06, 2014 Past Medical History Past medical history as discussed below Family Medical History Family History: 19 FATHER Myocardial infarction 19 MOTHER Myocardial infarction Diabetes mellitus G8 BROTHER Myocardial infarction G8 BROTHER Myocardial infarction G8 BROTHER Myocardial infarction G8 BROTHER Myocardial infarction G8 BROTHER Myocardial infarction G8 SISTER Myocardial infarction G8 SISTER FH: cirrhosis Constitutional: see HPI malaise weakness EENTM: see HPI Respiratory: see HPI dyspnea on exertion short of breath Cardiovascular: see HPI chest pain edema Gastrointestinal: see HPI abdominal pain Genitourinary: no symptoms reported see HPI Musculoskeletal: see HPI Skin: no symptoms reported see HPI Psychiatric/Neurological: See HPI Anxiety Depressed Reviewed Test Results Reviewed Test Results Lab Laboratory Tests Test 07/22/16 01:00 07/22/16 02:49 Range/Units Alanine Aminotransferase (ALT/SGPT) 24 0-55 U/L Albumin 3.9 3.2-4.5 G/DL Alkaline Phosphatase 81 40-136 U/L Anion Gap 16 H 5-14 MMOL/L Aspartate Amino Transf (AST/SGOT) 25 5-34 U/L B-Type Natriuretic Peptide 721.2 H <100.0 PG/ML BUN/Creatinine Ratio 11 Basophils # (Auto) 0.0 0.0-0.1 10^3/uL Basophils (%) (Auto) 0 0-10 % Blood Urea Nitrogen 14 7-18 MG/DL Calcium Level 9.1 8.5-10.1 MG/DL Carbon Dioxide Level 23 21-32 MMOL/L Chloride Level 103 98-107 MMOL/L Creatinine 1.29 0.60-1.30 MG/DL Eosinophils # (Auto) 0.1 0.0-0.3 10^3/uL Eosinophils (%) (Auto) 2 0-10 % Estimat Glomerular Filtration Rate 39 Glucose Level 161 H 70-105 MG/DL Hematocrit 39 35-52 % Hemoglobin 13.0 11.5-16.0 G/DL Lipase 47 8-78 U/L Lymphocytes # (Auto) 2.2 1.0-4.0 X 10^3 Lymphocytes (%) (Auto) 31 12-44 % Magnesium Level 1.8 1.8-2.4 MG/DL Mean Corpuscular Hemoglobin 33 25-34 PG Mean Corpuscular Hemoglobin Concent 34 32-36 G/DL Mean Corpuscular Volume 99 80-99 FL Mean Platelet Volume 10.9 H 7.4-10.4 FL Monocytes # (Auto) 0.5 0.0-1.0 X 10^3 Monocytes (%) (Auto) 7 0-12 % Neutrophils # (Auto) 4.3 1.8-7.8 X 10^3 Neutrophils (%) (Auto) 61 42-75 % Phenytoin (Dilantin) Level 3.3 L 10.0-20.0 UG/ML Platelet Count 146 130-400 10^3/uL Potassium Level 3.3 L 3.6-5.0 MMOL/L Red Blood Count 3.94 L 4.35-5.85 10^6/uL Red Cell Distribution Width 14.2 10.0-14.5 % Sodium Level 142 135-145 MMOL/L Total Bilirubin 0.5 0.1-1.0 MG/DL Total Protein 6.2 L 6.4-8.2 G/DL Troponin I < 0.30 0.90 *H <0.30 NG/ML White Blood Count 7.0 4.3-11.0 10^3/uL Phosphorus Level 3.4 2.3-4.7 MG/DL Laboratory Tests Test 07/22/16 01:00 07/22/16 02:49 07/22/16 10:30 Range/Units Alanine Aminotransferase (ALT/SGPT) 24 0-55 U/L Albumin 3.9 3.2-4.5 G/DL Alkaline Phosphatase 81 40-136 U/L Anion Gap 16 H 5-14 MMOL/L Aspartate Amino Transf (AST/SGOT) 25 5-34 U/L B-Type Natriuretic Peptide 721.2 H <100.0 PG/ML BUN/Creatinine Ratio 11 Basophils # (Auto) 0.0 0.0-0.1 10^3/uL Basophils (%) (Auto) 0 0-10 % Blood Urea Nitrogen 14 7-18 MG/DL Calcium Level 9.1 8.5-10.1 MG/DL Carbon Dioxide Level 23 21-32 MMOL/L Chloride Level 103 98-107 MMOL/L Creatinine 1.29 0.60-1.30 MG/DL Eosinophils # (Auto) 0.1 0.0-0.3 10^3/uL Eosinophils (%) (Auto) 2 0-10 % Estimat Glomerular Filtration Rate 39 Glucose Level 161 H 70-105 MG/DL Hematocrit 39 35-52 % Hemoglobin 13.0 11.5-16.0 G/DL Lipase 47 8-78 U/L Lymphocytes # (Auto) 2.2 1.0-4.0 X 10^3 Lymphocytes (%) (Auto) 31 12-44 % Magnesium Level 1.8 1.8-2.4 MG/DL Mean Corpuscular Hemoglobin 33 25-34 PG Mean Corpuscular Hemoglobin Concent 34 32-36 G/DL Mean Corpuscular Volume 99 80-99 FL Mean Platelet Volume 10.9 H 7.4-10.4 FL Monocytes # (Auto) 0.5 0.0-1.0 X 10^3 Monocytes (%) (Auto) 7 0-12 % Neutrophils # (Auto) 4.3 1.8-7.8 X 10^3 Neutrophils (%) (Auto) 61 42-75 % Phenytoin (Dilantin) Level 3.3 L 10.0-20.0 UG/ML Platelet Count 146 130-400 10^3/uL Potassium Level 3.3 L 3.6-5.0 MMOL/L Red Blood Count 3.94 L 4.35-5.85 10^6/uL Red Cell Distribution Width 14.2 10.0-14.5 % Sodium Level 142 135-145 MMOL/L Total Bilirubin 0.5 0.1-1.0 MG/DL Total Protein 6.2 L 6.4-8.2 G/DL Troponin I < 0.30 0.90 *H 8.98 *H <0.30 NG/ML White Blood Count 7.0 4.3-11.0 10^3/uL Phosphorus Level 3.4 2.3-4.7 MG/DL Physical Exam Vital Signs Vital Sign - Last 12Hours 07/22/16 07/22/16 07/22/16 00:58 03:39 08:10 Temp 98.4 Pulse 97 Resp 18 B/P 139/60 Pulse Ox 100 O2 Delivery Nasal Cannula O2 Flow Rate 2 FiO2 99 Capillary Refill : Less Than 3 Seconds General Appearance: WD/WN Mild Distress Eyes: Bilateral Eye EOMI, Bilateral Eye Normal Inspection, Bilateral Eye PERRL HEENT: PERRL/EOMI TMs Normal Normal ENT Inspection Pharynx Normal Neck: Full Range of Motion Normal Inspection Non Tender Supple Carotid Bruit Respiratory: Chest Non Tender Normal Breath Sounds No Accessory Muscle Use No Respiratory Distress Crackles Cardiovascular: Regular Rate, Rhythm No Gallop No JVD Normal Peripheral Pulses Systolic Murmur Gallop/S3 Gastrointestinal: Normal Bowel Sounds No Organomegaly No Pulsatile Mass Non Tender Soft Back: Normal Inspection No CVA Tenderness No Vertebral Tenderness Extremity: Normal Capillary Refill Normal Inspection Normal Range of Motion Non Tender No Calf Tenderness Pedal Edema Neurologic/Psychiatric: Alert Oriented x3 Aphasia Skin: Normal Color Warm/Dry Lymphatic: No Adenopathy A/P-Cardiology Admission Diagnosis Non-ST elevation myocardial infarction Chest pain nonspecific etiology Coronary artery disease Congestive heart failure, chronic compensated left ventricular systolic dysfunction, ischemic cardiomyopathy Assessment/Plan Non-ST elevation myocardial infarction, 2 episodes of chest pain with elevation in troponin level. Currently pain-free. EKG did not show any acute changes. Responded to sublingual nitroglycerin, borderline hypotensive. Had history of coronary artery disease with CABG, done in the remote past. Patient requesting conservative management. Had a similar episode in May 2016 and treated conservatively. patient was noted to have significant elevation in troponin level, he had a long discussion with the patient and her daughter regarding the need for possible cardiac catheterization, patient insisted on conservative management, reported that she had her stroke after cardiac catheterization in 2009 in [place]. Prefer not to have the procedure done and understand that there is a risk without having the cardiac catheterization. Recurrent chest pain, responding to sublingual nitroglycerin, we discussed the use of isosorbide and evaluate her tolerance and response. Congestive heart failure, chronic left ventricular systolic dysfunction, compensated, ischemic cardiomyopathy, last echocardiogram was done in May 2016 showing ejection fraction 30 percent, pulmonary artery pressure of 45 mmHg , diastolic dysfunction, maintained on metoprolol and Entresto, diuretics with Lasix and spironolactone. Continue to monitor closely. History of CVA with aphasia, right-sided hemiparesis. No change from baseline. 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 Diabetes mellitus, followed and managed by primary care physician Hypertension, currently borderline hypotensive secondary to medications. Continue to monitor blood pressure. Hyperlipidemia. History of seizure disorder, followed by primary care physician. Clinical Quality Measures AMI/AHF: ASA po Prior to arrival: Yes DVT/VTE Risk/Contraindication: Risk Factor Score Per Nursin RFS Level Per Nursing on Admit: 4+=Very High MILLER HYDE MD Jul 22, 2016 10:04
[2016-07-22] MEDS: APIXABAN 5 MG (ELIQUIS) TABLET PO SCH ×2 (11:19→20:19)
[2016-07-22] MEDS: PHENYTOIN 100 MG (DILANTIN) CAP PO SCH ×2 (11:19→20:18)
[2016-07-22] MEDS: ASPIRIN 81 MG CHEW (CHILDREN'S ASA) PO SCH (11:19)
[2016-07-22] MEDS: sitaGLIPtin 50 MG (JANUVIA) TAB PO SCH (11:19)
[2016-07-22] MEDS: PANTOPRAZOLE 40 MG (PROTONIX) TAB PO SCH (11:19)
[2016-07-22] MEDS: FUROSEMIDE 40 MG (LASIX) TAB PO SCH (11:19)
[2016-07-22] MEDS: SACUBITRIL/VALSARTAN 24/26 MG (ENTRESTO) TABLET PO SCH (20:18)
[2016-07-22] MEDS: ATORVASTATIN 40 MG (LIPITOR) TABLET PO SCH (20:18)
[2016-07-22] MEDS: PERPHENAZINE 2 MG (TRILAFON) TAB PO SCH (20:18)
[2016-07-22] MEDS: TOLTERODINE LA 4 MG (DETROL) CAP PO SCH (20:19)
[2016-07-22] MEDS: AMITRIPTYLINE 25 MG (ELAVIL) TAB PO SCH (20:19)
[2016-07-23] VITALS (7 sets, daily range): BP systolic 111–138; BP diastolic 54–80
[2016-07-23 04:07] LABS: BASOPHILS % (AUTO) 1 % (0-10); EOSINOPHILS # (AUTO) 0.2 10^3/uL (0.0-0.3); EOSINOPHILS % (AUTO) 5 % (0-10); LYMPHOCYTES # (AUTO) 1.7 X 10^3 (1.0-4.0); LYMPHOCYTES % (AUTO) 38 % (12-44); MEAN CORPUSCULAR HEMOGLOBIN 32 PG (25-34); MEAN CORPUSCULAR HGB CONC 33 G/DL (32-36); MEAN CORPUSCULAR VOLUME 99 FL (80-99); MEAN PLATELET VOLUME 10.7 FL (7.4-10.4); MONOCYTES # (AUTO) 0.4 X 10^3 (0.0-1.0); MONOCYTES % (AUTO) 10 % (0-12); NEUTROPHILS % (AUTO) 46 % (42-75); PLATELET COUNT 132 10^3/uL (130-400); RED BLOOD COUNT 3.67 10^6/uL (4.35-5.85); RED CELL DISTRIBUTION WIDTH 14.7 % (10.0-14.5); WHITE BLOOD COUNT 4.3 10^3/uL (4.3-11.0)
[2016-07-23 04:44] LABS: ALBUMIN 3.2 G/DL (3.2-4.5); BILIRUBIN,TOTAL 0.4 MG/DL (0.1-1.0); CALCIUM 8.6 MG/DL (8.5-10.1); CREATININE SERUM 0.98 MG/DL (0.60-1.30); MAGNESIUM 1.8 MG/DL (1.8-2.4); PHOSPHORUS 3.8 MG/DL (2.3-4.7); TOTAL PROTEIN 5.2 G/DL (6.4-8.2)
[2016-07-23 04:55] LABS: TROPONIN I 9.4 NG/ML (<0.30)
[2016-07-23] MEDS: VENlafaxine XR 75 MG (EFFEXOR XR) CAP PO SCH (06:36)
[2016-07-23] MEDS: KCL 20 MEQ TAB (K-DUR) PO SCH (06:37)
--- NOTE | 2016-07-23 07:34 | Progress Note (SOAP) ---
Subjective Subjective/Events-last exam chest pain resolved this morning. Congestive heart failure BNP 900. Hypertension. Elevated troponin. Hyperlipidemia. GERD. History of CVA with dysphagia. Diabetes. Depression. History of DVT and pulmonary embolism. Patient and family wants conservative treatment Objective Exam Vital Signs Date Time Temp Pulse Resp B/P Pulse Ox O2 Delivery O2 Flow Rate FiO2 07/23/16 07:28 Nasal Cannula 1.00 07/23/16 04:00 97.6 89 19 114/65 94 Nasal Cannula 1.00 07/23/16 04:00 95 Nasal Cannula 1.00 07/23/16 01:00 86 07/23/16 00:00 97.2 84 16 129/63 97 Nasal Cannula 1.00 07/23/16 00:00 97 Nasal Cannula 1.00 07/22/16 21:00 98 Nasal Cannula 1.00 07/22/16 20:00 97.7 75 16 115/55 98 Nasal Cannula 1.00 07/22/16 20:00 98 Nasal Cannula 1.00 07/22/16 19:00 78 07/22/16 18:24 Nasal Cannula 1.00 97 07/22/16 16:11 96.7 75 17 119/56 98 Nasal Cannula 1.00 07/22/16 16:00 98 Nasal Cannula 1.00 07/22/16 13:00 77 07/22/16 12:00 98 Nasal Cannula 1.00 07/22/16 12:00 96.1 86 23 108/77 98 Nasal Cannula 1.00 07/22/16 09:06 98 Nasal Cannula 1.00 07/22/16 08:10 Nasal Cannula 2.00 99 07/22/16 08:00 98 Nasal Cannula 1.00 07/22/16 08:00 97.7 75 15 121/60 98 Nasal Cannula 1.00 I & O 07/23/16 07:00 Intake Total 400 ml Output Total 1200 ml Balance -800 ml Capillary Refill : Less Than 3 Seconds General Appearance: No Apparent Distress WD/WN HEENT: Normal ENT Inspection Neck: Full Range of Motion Normal Inspection Respiratory: Chest Non Tender Lungs Clear Normal Breath Sounds No Accessory Muscle Use No Respiratory Distress Cardiovascular: Regular Rate, Rhythm No Murmur Gastrointestinal: non tender soft Results Lab Laboratory Tests 07/23/16 03:45 Laboratory Tests 07/22/16 10:30: Troponin I 8.98*H 07/23/16 03:45: Troponin I 9.40*H, Alanine Aminotransferase (ALT/SGPT) 21, Albumin 3.2, Alkaline Phosphatase 66, Anion Gap 10, Aspartate Amino Transf (AST/SGOT) 36H, B- Type Natriuretic Peptide 941.3H, BUN/Creatinine Ratio 13, Basophils # (Auto) 0.0 , Basophils (%) (Auto) 1, Blood Urea Nitrogen 13, Calcium Level 8.6, Carbon Dioxide Level 27, Chloride Level 106, Creatinine 0.98, Eosinophils # (Auto) 0.2 , Eosinophils (%) (Auto) 5, Estimat Glomerular Filtration Rate 54, Glucose Level 109H, Hematocrit 36, Hemoglobin 11.9, Lymphocytes # (Auto) 1.7, Lymphocytes (%) (Auto) 38, Magnesium Level 1.8, Mean Corpuscular Hemoglobin 32, Mean Corpuscular Hemoglobin Concent 33, Mean Corpuscular Volume 99, Mean Platelet Volume 10.7H, Monocytes # (Auto) 0.4, Monocytes (%) (Auto) 10, Neutrophils # (Auto) 2.0, Neutrophils (%) (Auto) 46, Phosphorus Level 3.8, Platelet Count 132, Potassium Level 3.0L, Red Blood Count 3.67L, Red Cell Distribution Width 14.7H, Sodium Level 143, Total Bilirubin 0.4, Total Protein 5.2L, White Blood Count 4.3 Assessment/Plan Assessment/Plan Assess & Plan/Chief Complaint elevated troponin. Chest pain. CHF. Diabetes. Hypertension history. Hyperlipidemia. History of DVT and pulmonary embolism Diagnosis/Problems: Clinical Quality Measures AMI/AHF: ASA po Prior to arrival: Yes DVT/VTE Risk/Contraindication: Risk Factor Score Per Nursin RFS Level Per Nursing on Admit: 4+=Very High OUSMANE LONG DO Jul 23, 2016 07:34
--- NOTE | 2016-07-23 07:54 | Diagnostic Imaging Report ---
Clinical indication: Patient with dyspnea and chest pain. Exam: Portable chest x-ray upright view. Comparisons: Chest x-ray dated 07/22/2016. Findings: There is progression of right lung base atelectasis. There is stable left lung base atelectasis. Otherwise, the remainder of the lungs are clear. There is no pleural effusion or pneumothorax. Pulmonary vasculature is within normal limits. Cardiac silhouette is within normal limits. Stable postop changes to the chest with sternotomy wires and mediastinal clips. The remainder of this exam shows no significant interval change compared to the prior study of comparison. Impression: 1: Slight progression of mild right lung base atelectasis. There is stable left lung base atelectasis. 2: Otherwise stable chest x-ray exam and postop changes to the chest. Dictated by: Dictated on workstation # [id number]
--- NOTE | 2016-07-23 08:52 | Cardiology Progress Note ---
Subjective Subjective/Events-last exam patient is laying down in bed, feeling better, denied any further episodes of chest pain, understand that she had a heart attack and she elected conservative management, does not want any further testing. Requesting to go home. Review of Systems General: No Chills, No Night Sweats, No Fatigue, No Malaise, No Appetite, No Other HEENT: No Head Aches, No Visual Changes, No Eye Pain, No Ear Pain, No Dysphasia , No Sinus Congestion, No Post Nasal Drip, No Sore Throat, No Other Pulmonary: No Dyspnea, No Cough, No Pleuritic Chest Pain, No Other Cardiovascular: No: Chest Pain, Edema, Lt Headedness, Orthopnea, Other, Palpitations, Paroxysmal Noc. Dyspnea Objective-Cardiology Exam Last Set of Vital Signs Vital Signs 07/22/16 07/23/16 07/23/16 07/23/16 18:24 07:00 07:28 08:06 Pulse 75 Pulse Ox 97 O2 Delivery Room Air O2 Flow Rate 1.00 FiO2 97 Capillary Refill : Less Than 3 Seconds I&O Bad tableGeneral: Alert, Oriented X3, Cooperative HEENT: Atraumatic, PERRLA Neck: Supple, No JVD, No Thyromegaly Lungs: Clear to Auscultation, Normal Air Movement Heart: Regular Rate, Normal S1, Normal S2, Other (systolic murmur at the left sternal border) Abdomen: Normal Bowel Sounds, Soft, No Tenderness, No Hepatosplenomegaly, No Masses Extremities: No Clubbing, No Cyanosis, No Edema, Normal Pulses, No Tenderness/ Swelling Skin: No Rashes, No Breakdown, No Significant Lesion Neuro: Normal Gait, Normal Speech, Strength at 5/5 X4 Ext, Normal Tone, Sensation Intact Psych/Mental Status: Mental Status NL, Mood NL Results Lab Laboratory Tests 07/23/16 03:45 A/P-Cardiology Admission Diagnosis Non-ST elevation myocardial infarction Chest pain nonspecific etiology Coronary artery disease Congestive heart failure, chronic compensated left ventricular systolic dysfunction, ischemic cardiomyopathy Assessment/Plan Non-ST elevation myocardial infarction, 2 episodes of chest pain with elevation in troponin level. Currently pain-free. EKG did not show any acute changes. Responded to sublingual nitroglycerin, borderline hypotensive. Had history of coronary artery disease with CABG, done in the remote past. Patient requesting conservative management. Had a similar episode in May 2016 and treated conservatively. patient was noted to have significant elevation in troponin level, he had a long discussion with the patient and her daughter regarding the need for possible cardiac catheterization, patient insisted on conservative management, reported that she had her stroke after cardiac catheterization in 2009 in [place]. Prefer not to have the procedure done and understand that there is a risk without having the cardiac catheterization. I am planning to discharge her home today. Educated about the use of nitroglycerin as needed. Congestive heart failure, chronic left ventricular systolic dysfunction, compensated, ischemic cardiomyopathy, last echocardiogram was done in May 2016 showing ejection fraction 30 percent, pulmonary artery pressure of 45 mmHg , diastolic dysfunction, maintained on metoprolol and Entresto, diuretics with Lasix and spironolactone. Continue to monitor closely. History of CVA with aphasia, right-sided hemiparesis. No change from baseline. 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 Diabetes mellitus, followed and managed by primary care physician Hypertension, currently borderline hypotensive secondary to medications. Continue to monitor blood pressure. Hyperlipidemia. History of seizure disorder, followed by primary care physician. Clinical Quality Measures AMI/AHF: ASA po Prior to arrival: Yes DVT/VTE Risk/Contraindication: Risk Factor Score Per Nursin RFS Level Per Nursing on Admit: 4+=Very High MILLER HYDE MD Jul 23, 2016 08:52
[2016-07-23] MEDS ORDERED: SACU1TAB PO (08:54)
[2016-07-23] MEDS: PHENYTOIN 100 MG (DILANTIN) CAP PO SCH ×2 (09:02→20:17)
[2016-07-23] MEDS: PANTOPRAZOLE 40 MG (PROTONIX) TAB PO SCH (09:02)
[2016-07-23] MEDS: ASPIRIN 81 MG CHEW (CHILDREN'S ASA) PO SCH (09:02)
[2016-07-23] MEDS: APIXABAN 5 MG (ELIQUIS) TABLET PO SCH ×2 (09:03→20:17)
[2016-07-23] MEDS: sitaGLIPtin 50 MG (JANUVIA) TAB PO SCH (09:03)
[2016-07-23] MEDS: VITAMIN D3 1,000 UNITS (CHOLECALCIFEROL) TABLET PO SCH (09:03)
[2016-07-23] MEDS: FUROSEMIDE 40 MG (LASIX) TAB PO SCH (09:03)
[2016-07-23] MEDS: SPIRONOLACTONE 25 MG (ALDACTONE) TAB PO SCH (09:03)
[2016-07-23] MEDS: LEVOTHYROXINE 25 MCG (LEVOTHROID) TAB PO SCH (09:03)
[2016-07-23] MEDS: SACUBITRIL/VALSARTAN 24/26 MG (ENTRESTO) TABLET PO SCH ×2 (09:05→20:17)
[2016-07-23] MEDS: ATORVASTATIN 40 MG (LIPITOR) TABLET PO SCH (20:17)
[2016-07-23] MEDS: TOLTERODINE LA 4 MG (DETROL) CAP PO SCH (20:17)
[2016-07-23] MEDS: AMITRIPTYLINE 25 MG (ELAVIL) TAB PO SCH (20:17)
[2016-07-23] MEDS: PERPHENAZINE 2 MG (TRILAFON) TAB PO SCH (20:17)
[2016-07-24] VITALS: BP 127/67
[2016-07-24 04:00] VITALS: BP 121/58
[2016-07-24 05:07] LABS: BASOPHILS % (AUTO) 1 % (0-10); EOSINOPHILS # (AUTO) 0.2 10^3/uL (0.0-0.3); EOSINOPHILS % (AUTO) 5 % (0-10); LYMPHOCYTES # (AUTO) 1.6 X 10^3 (1.0-4.0); LYMPHOCYTES % (AUTO) 48 % (12-44); MEAN CORPUSCULAR HEMOGLOBIN 33 PG (25-34); MEAN CORPUSCULAR HGB CONC 33 G/DL (32-36); MEAN CORPUSCULAR VOLUME 99 FL (80-99); MEAN PLATELET VOLUME 10.8 FL (7.4-10.4); MONOCYTES # (AUTO) 0.4 X 10^3 (0.0-1.0); MONOCYTES % (AUTO) 12 % (0-12); NEUTROPHILS # (AUTO) 1.2 X 10^3 (1.8-7.8); NEUTROPHILS % (AUTO) 34 % (42-75); PLATELET COUNT 114 10^3/uL (130-400); RED BLOOD COUNT 3.58 10^6/uL (4.35-5.85); RED CELL DISTRIBUTION WIDTH 14.4 % (10.0-14.5); WHITE BLOOD COUNT 3.4 10^3/uL (4.3-11.0)
[2016-07-24 05:25] LABS: ALBUMIN 3.2 G/DL (3.2-4.5); BILIRUBIN,TOTAL 0.4 MG/DL (0.1-1.0); CALCIUM 8.8 MG/DL (8.5-10.1); CREATININE SERUM 0.98 MG/DL (0.60-1.30); MAGNESIUM 1.9 MG/DL (1.8-2.4); PHOSPHORUS 3.4 MG/DL (2.3-4.7); POTASSIUM 3.2 MMOL/L (3.6-5.0); TOTAL PROTEIN 5.3 G/DL (6.4-8.2)
[2016-07-24 05:43] LABS: TROPONIN I 6.82 NG/ML (<0.30)
[2016-07-24] MEDS ORDERED: POTASSIUM CL 10MEQ/50ML IVPB 50 ML IV SCH (06:00)
[2016-07-24] MEDS ORDERED: KCL 20 MEQ TAB (K-DUR) PO SCH (06:00)
[2016-07-24] MEDS ORDERED: MAGNESIUM 1 GM/100 ML IVPB 100 ML IV SCH (06:00)
[2016-07-24] MEDS: KCL 20 MEQ TAB (K-DUR) PO SCH (06:36)
[2016-07-24] MEDS: VENlafaxine XR 75 MG (EFFEXOR XR) CAP PO SCH (06:36)
--- NOTE | 2016-07-24 07:28 | Progress Note (SOAP) ---
Subjective Subjective/Events-last exam non-ST elevated PA. Congestive heart failure. Troponin 6.82 coming down. BNP 786 coming down. Patient feeling weak. Patient is a 2 person assist. Patient to be evaluated by physical therapy and occupational therapy today. Patient and family wants conservative management. Patient not having any chest pain this morning Objective Exam Vital Signs Date Time Temp Pulse Resp B/P Pulse Ox O2 Delivery O2 Flow Rate FiO2 07/24/16 04:00 96.5 88 18 121/58 96 Room Air 07/24/16 04:00 Room Air 07/24/16 01:00 84 07/24/16 00:00 Room Air 07/24/16 00:00 98.1 93 18 127/67 96 Room Air 07/23/16 21:00 Room Air 07/23/16 20:00 Room Air 07/23/16 20:00 99.0 94 18 138/68 97 Room Air 07/23/16 19:00 116 07/23/16 16:35 98.8 77 18 132/68 96 Room Air 07/23/16 15:57 97 Room Air 07/23/16 15:56 97.9 77 18 126/59 94 Room Air 07/23/16 13:00 85 07/23/16 12:30 97 Room Air 07/23/16 12:29 98.4 77 18 111/54 96 Room Air 07/23/16 09:14 98 Room Air 07/23/16 08:15 97.7 80 18 128/80 97 Room Air 07/23/16 08:06 97 Room Air 07/23/16 07:28 Nasal Cannula 1.00 I & O 07/24/16 07:00 Intake Total 440 ml Output Total 1300 ml Balance -860 ml Capillary Refill : Less Than 3 Seconds General Appearance: No Apparent Distress WD/WN HEENT: Normal ENT Inspection Neck: Full Range of Motion Normal Inspection Respiratory: Chest Non Tender Lungs Clear Normal Breath Sounds No Accessory Muscle Use No Respiratory Distress Cardiovascular: Regular Rate, Rhythm No Murmur Gastrointestinal: non tender soft Results Lab Laboratory Tests 07/24/16 04:45 Laboratory Tests 07/24/16 04:45: Alanine Aminotransferase (ALT/SGPT) 20, Albumin 3.2, Alkaline Phosphatase 65, Anion Gap 9, Aspartate Amino Transf (AST/SGOT) 31, B-Type Natriuretic Peptide 786.3H, BUN/Creatinine Ratio 12, Basophils # (Auto) 0.0, Basophils (%) (Auto) 1 , Blood Urea Nitrogen 12, Calcium Level 8.8, Carbon Dioxide Level 27, Chloride Level 108H, Creatinine 0.98, Eosinophils # (Auto) 0.2, Eosinophils (%) (Auto) 5 , Estimat Glomerular Filtration Rate 54, Glucose Level 93, Hematocrit 35, Hemoglobin 11.7, Lymphocytes # (Auto) 1.6, Lymphocytes (%) (Auto) 48H, Magnesium Level 1.9, Mean Corpuscular Hemoglobin 33, Mean Corpuscular Hemoglobin Concent 33, Mean Corpuscular Volume 99, Mean Platelet Volume 10.8H, Monocytes # (Auto) 0.4, Monocytes (%) (Auto) 12, Neutrophils # (Auto) 1.2L, Neutrophils (%) (Auto) 34L, Phosphorus Level 3.4, Platelet Count 114L, Potassium Level 3.2L, Red Blood Count 3.58L, Red Cell Distribution Width 14.4, Sodium Level 144, Total Bilirubin 0.4, Total Protein 5.3L, Troponin I 6.82*H, White Blood Count 3.4L Assessment/Plan Assessment/Plan Assess & Plan/Chief Complaint elevated troponin. Chest pain. CHF. Diabetes. Hypertension history. Hyperlipidemia. History of DVT and pulmonary embolism. . 07/24/16. Non-ST elevated PA. Congestive heart failure. Diabetes. Hypertension. Hyperlipidemia. History of DVT and pulmonary embolism. Patient had no chest pain this morning the last night. Troponin and BNP still elevated. Patient feels weaker today. Patient is a 2 person assist. Patient will try a walker today with physical therapy and occupational therapy. Patient lives alone. Patient has dysphagia from a previous CVA Diagnosis/Problems: Clinical Quality Measures AMI/AHF: ASA po Prior to arrival: Yes DVT/VTE Risk/Contraindication: Risk Factor Score Per Nursin RFS Level Per Nursing on Admit: 4+=Very High OUSMANE LONG DO Jul 24, 2016 07:28
[2016-07-24] MEDS ORDERED: KCL 10 MEQ TAB (MICRO K) PO NR ×2 (07:45)
[2016-07-24] MEDS ORDERED: KCL 20 MEQ TAB (K-DUR) PO NR (07:45)
[2016-07-24 08:00] VITALS: BP 124/69
[2016-07-24] MEDS: VITAMIN D3 1,000 UNITS (CHOLECALCIFEROL) TABLET PO SCH (08:32)
[2016-07-24] MEDS: PANTOPRAZOLE 40 MG (PROTONIX) TAB PO SCH (08:32)
[2016-07-24] MEDS: sitaGLIPtin 50 MG (JANUVIA) TAB PO SCH (08:32)
[2016-07-24] MEDS: ASPIRIN 81 MG CHEW (CHILDREN'S ASA) PO SCH (08:32)
[2016-07-24] MEDS: SPIRONOLACTONE 25 MG (ALDACTONE) TAB PO SCH (08:32)
[2016-07-24] MEDS: PHENYTOIN 100 MG (DILANTIN) CAP PO SCH ×2 (08:32→20:43)
[2016-07-24] MEDS: FUROSEMIDE 40 MG (LASIX) TAB PO SCH (08:32)
[2016-07-24] MEDS: SACUBITRIL/VALSARTAN 24/26 MG (ENTRESTO) TABLET PO SCH ×2 (08:32→20:43)
[2016-07-24] MEDS: LEVOTHYROXINE 25 MCG (LEVOTHROID) TAB PO SCH (08:33)
[2016-07-24] MEDS: APIXABAN 5 MG (ELIQUIS) TABLET PO SCH ×2 (08:33→20:43)
--- NOTE | 2016-07-24 09:51 | Cardiology Progress Note ---
Subjective Subjective/Events-last exam Patient in bed. Denies any active CP. Denies dyspnea or dizziness. Review of Systems General: No Night Sweats, No Fatigue, No Malaise HEENT: No Visual Changes, No Dysphasia, No Sore Throat Pulmonary: No Dyspnea, No Cough Cardiovascular: No: Chest Pain, Palpitations Gastrointestinal: No: Nausea, Vomiting Genitourinary: No Dysuria, No Frequency Musculoskeletal: No: back pain, neck pain Neurological: No: Confusion, Numbness, Weakness Objective-Cardiology Exam Last Set of Vital Signs Vital Signs 07/22/16 07/23/16 07/24/16 07/24/16 18:24 07:28 08:00 09:00 Temp 97.8 Pulse 89 Resp 16 B/P 124/69 Pulse Ox 96 O2 Delivery Room Air O2 Flow Rate 1.00 FiO2 97 Capillary Refill : Less Than 3 Seconds I&O Intake and Output 07/24/16 00:00 Intake Total 300 ml Output Total 800 ml Balance -500 ml Intake Oral 300 ml Output Urine Total 800 ml # Urine Diapers 1 General: Alert, Oriented X3, Cooperative HEENT: Atraumatic, PERRLA Neck: Supple, No JVD, No Thyromegaly Lungs: Clear to Auscultation, Normal Air Movement Heart: Regular Rate, Normal S1, Normal S2, Other (systolic murmur at the left sternal border) Abdomen: Normal Bowel Sounds, Soft, No Tenderness, No Hepatosplenomegaly, No Masses Extremities: No Clubbing, No Cyanosis, No Edema, Normal Pulses, No Tenderness/ Swelling Skin: No Rashes, No Breakdown, No Significant Lesion Neuro: Normal Gait, Normal Speech, Strength at 5/5 X4 Ext, Normal Tone, Sensation Intact Psych/Mental Status: Mental Status NL, Mood NL Results Lab Laboratory Tests 07/24/16 04:45 A/P-Cardiology Admission Diagnosis Non-ST elevation myocardial infarction Chest pain nonspecific etiology Coronary artery disease Congestive heart failure, chronic compensated left ventricular systolic dysfunction, ischemic cardiomyopathy Assessment/Plan Non-ST elevation myocardial infarction, 2 episodes of chest pain with elevation in troponin level. Currently pain-free. EKG did not show any acute changes. Responded to sublingual nitroglycerin, borderline hypotensive. Had history of coronary artery disease with CABG, done in the remote past. Patient requesting conservative management. Had a similar episode in May 2016 and treated conservatively. patient was noted to have significant elevation in troponin level, he had a long discussion with the patient and her daughter regarding the need for possible cardiac catheterization, patient insisted on conservative management, reported that she had her stroke after cardiac catheterization in 2009 in [place]. Prefer not to have the procedure done and understand that there is a risk without having the cardiac catheterization. Troponin level trending down. Educated about the use of nitroglycerin as needed. Congestive heart failure, chronic left ventricular systolic dysfunction, compensated, ischemic cardiomyopathy, last echocardiogram was done in May 2016 showing ejection fraction 30 percent, pulmonary artery pressure of 45 mmHg , diastolic dysfunction, maintained on metoprolol and Entresto, diuretics with Lasix and spironolactone. Continue to monitor closely. History of CVA with aphasia, right-sided hemiparesis. No change from baseline. 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 Diabetes mellitus, followed and managed by primary care physician Hypertension, currently borderline hypotensive secondary to medications. Continue to monitor blood pressure. Hyperlipidemia. History of seizure disorder, followed by primary care physician. Clinical Quality Measures AMI/AHF: ASA po Prior to arrival: Yes DVT/VTE Risk/Contraindication: Risk Factor Score Per Nursin RFS Level Per Nursing on Admit: 4+=Very High LORNA HANSEN Jul 24, 2016 09:51
--- NOTE | 2016-07-24 11:31 | Physical Therapy Evaluation ---
PT Evaluation-General Medical Diagnosis Admission Date Jul 22, 2016 at 03:32 Medical Diagnosis: OR Onset Date: Jul 24, 2016 Therapy Diagnosis Therapy Diagnosis: weaknss; abn gait Height/Weight Height (Feet): 5 Height (Inches): 5.00 Weight (Pounds): 143 Weight (Ounces): 1.0 Precautions Precautions/Isolations: Fall Prevention, Standard Precautions Referral Physician: Yovany Reason for Referral: Evaluation/Treatment Medical History Pertinent Medical History: CABG, CAD, CVA, DM, HTN, OR, Neuropathy, Renal Insufficiency Additional Medical History aphasia Current History Admitted with non-ST elevated OR Reviewed History: Yes Social History Home: Single Level Current Living Status: Alone (family assists) Prior/Core FIM Prior Level of Function Functional [place] Measure 0=Not Assessed/NA 4=Minimal Assistance 1=Total Assistance 5=Supervision or Setup 2=Maximal Assistance 6=Modified [place] 3=Moderate Assistance 7=Complete [place] Pt lives alone, per her report with family assisting as needed with IADL's and pt care. Pt expresses that she uses a walker at home. PT Evaluation-Current Subjective Smiles, nods to agree. Answers yes/no; aphasia noted Pain Numeric Pain Scale: 0-No Pain Location: No Pain Reported Comment: Does not appear to have any pain; denies pain ROM/Strength ROM Lower Extremities WFL Strenght Lower Extremities R LE grossly 4-/5; left LE grossly 5/5 Integumentary/Posture Integumentary intact Bowel Incontinence: No Bladder Incontinence: No Posture normal; symmetrical Neuromuscular (Tone, Coordination, Reflexes) intact for function; slight decreased coordination left; decreased coordination right due to old CVA Sensory Vision: Functional Hearing: Functional Sensation Right Lower Extremit: Intact Sensation Left Lower Extremity: Intact Transfers Functional [place] Measure 0=Not Assessed/NA 4=Minimal Assistance 1=Total Assistance 5=Supervision or Setup 2=Maximal Assistance 6=Modified [place] 3=Moderate Assistance 7=Complete [place] Transfers (B, C, W/C) (FIM): 4 (CGA) Supine to/from Sit: 4 Sit to/from Stand: 5 (toilet transfer with SBA) Gait Mode of Locomotion: Walk Gait (FIM): 2 Distance (FIM): 3=829-74 ft Distance: 50 ft and 20 ft Gait Level of Assist: 4 (CGA) Gait Assistive Device: FWW Comments/Gait Description Right LE with ER and decreased DF in gait; decreased step length B Balance Sitting Static: Normal Sitting Dynamic: Normal Standing Static: Fair Standing Dynamic: Fair Assessment/Needs Post admission due to OR; pt presents with slight functional weakness due to recent event, but did well with evaluation this date. She presents with decreased functional act tolerance and slight gross weakness that impairs her functional mobility. She will benefit from skilled PT to increase strength and mobility to allow her to return home as before. Rehab Potential: Good PT Cardiothoracic Icu Rn Goals Cardiothoracic Icu Rn Goals PT Cardiothoracic Icu Rn Goals Time Frame: Jul 31, 2016 Transfers (B,C,W/C) (FIM): 6 Gait (FIM): 6 Gait distance (FIM): 3=150 ft Gait Assistive Device: FWW Goal is for patient to be able to return home as before. PT Plan Problem List Problem List: Activity Tolerance, Functional Strength, Safety, Gait, Transfer Treatment/Plan Treatment Plan: Continue Plan of Care Treatment Plan: Bed Mobility, Education, Functional Activity Damon, Functional Strength, Gait, Safety, Therapeutic Exercise, Transfers Treatment Duration: Jul 31, 2016 # of days/week 5-6 Visits Per Week: 5-6 Pt/Family Agrees w/Plan: Yes Safety Risks/Education Patient Education: Safety Issues Teaching Recipient: Patient Teaching Methods: Discussion Response to Teaching: Reinforcement Needed Time/GCodes Time In: 1110 Time Out: 1130 Total Billed Treatment Time: 20 Total Billed Treatment visit [place] 20 min JOELLE ESPOSITO PT Jul 24, 2016 11:31
[2016-07-24 12:00] VITALS: BP 119/67
--- NOTE | 2016-07-24 14:15 | Occupational Therapy Eval ---
OT Evaluation-General/PLF Medical Diagnosis Admission Date Jul 22, 2016 at 03:32 Medical Diagnosis: ND Onset Date: Jul 24, 2016 Therapy Diagnosis Therapy Diagnosis: decreased self care Height/Weight Height (Feet): 5 Height (Inches): 5.00 Weight (Pounds): 143 Weight (Ounces): 1.0 Precautions Precautions/Isolations: Fall Prevention, Standard Precautions Safety Interventions: Reorient-PRN Referral Physician: Yovany Medical History Pertinent Medical History: CABG, CAD, CVA, DM, HTN, ND, Neuropathy, Renal Insufficiency Additional Medical History CHF, chronic edema, DVT, high cholesterol, DDD, chronic back pain, sleep difficulties, anxiety, depression, psoriasis Reviewed History: Yes Social History Home: Single Level Current Living Status: Alone (family assists) ADL-Prior Level of Function ADL PLOF Comments Pt reports being independent with basic self care and mobility. Family does the cooking and cleaning. DME/Equipment: Bath Chair, Shower, Tall Toilet Drive Self: No OT Current Status Subjective Pt sitting in chair. Pt has expressive aphasia,but is able to answer yes/no questions and write on tablet to answer questions. Pt smiling and nods "yes" to participate in therapy. Mental Status/Objective Patient Orientation: Person Current Glasses/Contacts: Yes Hearing Aids: No Dentures/Partials: Yes Hand Dominance: Left Upper Extremity ROM Left UE grossly WFL Pt has decreased right UE ROM secondary to prior CVA. Upper Extremity Coordination Impaired right UE Upper Extremity Sensation Pt indicates numbness in right UE. Upper Extremity Strength Impaired right UE secondary to prior CVA. Left UE grossly 4/5 ADL-Treatment ADL-Current Pt participated in UE assessment while seated in chair. Pt demonstrated ability to doff/don socks with SBA. Sit to stand with CGA. Gait to restroom with FWW. Pt demonstrated ability to perform toilet transfer with minimal assistance to stand from toilet using grab bar. Pt returned to chair, sitting with needs met after session. Functional [place] Measure 0=Not Assessed/NA 4=Minimal Assistance 1=Total Assistance 5=Supervision or Setup 2=Maximal Assistance 6=Modified [place] 3=Moderate Assistance 7=Complete IndependenceIRFPAI Quality Coding Scale 6 Independent with activity with or without an assistive device 5 Patient requires set up or clean up by helper. Patient completes activity by themselves 4 Supervision or touching assist (CGA). [place] provide cues , steadying assist 3 The helper provides less than half the effort to complete the activity 2 The helper provides more than half the effort to complete the activity 1 Dependent. The helper does all the effort to complete an activity 7 Patient refused to complete or attempt activity 9 The patient did not perform the activity before the current illness or injury 88 Not attempted due to Medical conditions or safety concerns Eating (FIM): 5 (Set up by report) Toilet/Commode Transfer (FIM): 4 Education OT Patient Education: Rehab process Teaching Recipient: Patient Teaching Methods: Discussion OT Short Term Goals Short Term Goals 1=Demonstrate adherence to instructed precautions during ADL tasks. 2=Patient will verbalize/demonstrate understanding of assistive devices/ modifications for ADL. 3=Patient will improve strength/tolerance for activity to enable patient to perform ADL's. OT Appliance Servicer Goals Intermediate Goals Time Frame: 2 weeks Grooming(FIM): 6 Bathing(FIM): 5 Upper Body Dressing(FIM): 6 Lower Body Dressing(FIM): 5 Toileting(FIM): 6 Toilet/Commode Transfer(FIM): 6 Additional Goals: 1-Demonstrate ADL Tasks, 2-Verbalize Understanding, 3- ImproveStrength/Damon 1=Demonstrate adherence to instructed precautions during ADL tasks. 2=Patient will verbalize/demonstrate understanding of assistive devices/ modifications for ADL. 3=Patient will improve strength/tolerance for activity to enable patient to perform ADL's. OT Education/Plan Problem List/Assessment Assessment: Decreased Activ Tolerance, Decreased UE Strength, Dependent Transfers, Impaired Self-Care Skills Pt to benefit from skilled OT intervention for ADL training, transfers, strengthening, and home safety education to maximize level of functioning and allow safe discharge home. Discharge Recommendations Plan/Recommendations: Continue POC Treatment Plan/Plan of Care Treatment,Training & Education: Yes Patient would benefit from OT for education, treatment and training to promote independence in ADL's, mobility, safety and/or upper extremity function for ADL' s. Treatment Duration: Aug 07, 2016 # of days/week 5 Agreement: Yes Rehab Potential: Good Time/GCodes Start Time: 11:38 Stop Time: 11:53 Total Time Billed (hr/min): 15 Billed Treatment Time 1 visit, LEONIDAS(15minutes) GET JOSE OT Jul 24, 2016 14:15
[2016-07-24 15:45] VITALS: BP 108/57
[2016-07-24 19:30] VITALS: BP 120/58
[2016-07-24] MEDS: PERPHENAZINE 2 MG (TRILAFON) TAB PO SCH (20:43)
[2016-07-24] MEDS: AMITRIPTYLINE 25 MG (ELAVIL) TAB PO SCH (20:43)
[2016-07-24] MEDS: ATORVASTATIN 40 MG (LIPITOR) TABLET PO SCH (20:43)
[2016-07-24] MEDS: TOLTERODINE LA 4 MG (DETROL) CAP PO SCH (20:43)
[2016-07-25] VITALS (7 sets, daily range): BP systolic 114–130; BP diastolic 59–68
[2016-07-25] MEDS: NITROGLYCERIN SUBLINGUAL 0.4 MG TAB (NITROSTAT) SL PRN ×2 (00:10→05:02)
[2016-07-25 04:48] LABS: BASOPHILS % (AUTO) 1 % (0-10); EOSINOPHILS # (AUTO) 0.2 10^3/uL (0.0-0.3); EOSINOPHILS % (AUTO) 5 % (0-10); LYMPHOCYTES # (AUTO) 1.6 X 10^3 (1.0-4.0); LYMPHOCYTES % (AUTO) 44 % (12-44); MEAN CORPUSCULAR HEMOGLOBIN 33 PG (25-34); MEAN CORPUSCULAR HGB CONC 33 G/DL (32-36); MEAN CORPUSCULAR VOLUME 99 FL (80-99); MEAN PLATELET VOLUME 10.9 FL (7.4-10.4); MONOCYTES # (AUTO) 0.4 X 10^3 (0.0-1.0); MONOCYTES % (AUTO) 12 % (0-12); NEUTROPHILS # (AUTO) 1.4 X 10^3 (1.8-7.8); NEUTROPHILS % (AUTO) 38 % (42-75); PLATELET COUNT 130 10^3/uL (130-400); RED BLOOD COUNT 3.64 10^6/uL (4.35-5.85); RED CELL DISTRIBUTION WIDTH 14.4 % (10.0-14.5); WHITE BLOOD COUNT 3.6 10^3/uL (4.3-11.0)
[2016-07-25 05:03] LABS: CALCIUM 8.6 MG/DL (8.5-10.1); CREATININE SERUM 0.99 MG/DL (0.60-1.30); MAGNESIUM 1.9 MG/DL (1.8-2.4); PHOSPHORUS 3.9 MG/DL (2.3-4.7); POTASSIUM 3.5 MMOL/L (3.6-5.0)
[2016-07-25 05:28] LABS: TROPONIN I 5.12 NG/ML (<0.30)
[2016-07-25] MEDS: KCL 20 MEQ TAB (K-DUR) PO SCH (07:08)
[2016-07-25] MEDS: VENlafaxine XR 75 MG (EFFEXOR XR) CAP PO SCH (07:08)
--- NOTE | 2016-07-25 07:48 | Progress Note (SOAP) ---
Subjective Subjective/Events-last exam patient had a real good day yesterday. Patient had a bad night. Patient had chest pain. Patient scared and had tears this morning Patient felt wiped out. Patient was to be discharged today but not ready. Patient received nitroglycerin last night. Troponin coming down but still 5.12 Objective Exam Vital Signs Date Time Temp Pulse Resp B/P Pulse Ox O2 Delivery O2 Flow Rate FiO2 07/25/16 04:00 97.9 82 18 120/67 96 Room Air 07/25/16 01:00 85 07/25/16 00:35 119/68 07/25/16 00:00 98.5 79 18 118/66 95 Room Air 07/24/16 21:00 Room Air 07/24/16 19:30 98.9 82 18 120/58 95 Room Air 07/24/16 19:21 Room Air 07/24/16 19:00 81 07/24/16 15:45 98.2 72 16 108/57 98 Room Air 07/24/16 12:57 81 07/24/16 12:00 98.7 73 18 119/67 99 Room Air 07/24/16 09:00 Room Air 07/24/16 08:06 Room Air 07/24/16 08:00 97.8 89 16 124/69 96 Room Air I & O 07/25/16 07:00 Intake Total 1530 ml Output Total 800 ml Balance 730 ml Capillary Refill : Less Than 3 Seconds General Appearance: Thin Other (anxious and teary-eyed) HEENT: Normal ENT Inspection Neck: Normal Inspection Respiratory: Chest Non Tender Lungs Clear Normal Breath Sounds No Accessory Muscle Use No Respiratory Distress Cardiovascular: Regular Rate, Rhythm No Murmur Gastrointestinal: non tender soft Results Lab Laboratory Tests 07/25/16 04:33 Laboratory Tests 07/25/16 04:33: Anion Gap 10, BUN/Creatinine Ratio 12, Basophils # (Auto) 0.0, Basophils (%) ( Auto) 1, Blood Urea Nitrogen 12, Calcium Level 8.6, Carbon Dioxide Level 26, Chloride Level 108H, Creatinine 0.99, Eosinophils # (Auto) 0.2, Eosinophils (%) (Auto) 5, Estimat Glomerular Filtration Rate 53, Glucose Level 95, Hematocrit 36 , Hemoglobin 11.9, Lymphocytes # (Auto) 1.6, Lymphocytes (%) (Auto) 44, Magnesium Level 1.9, Mean Corpuscular Hemoglobin 33, Mean Corpuscular Hemoglobin Concent 33, Mean Corpuscular Volume 99, Mean Platelet Volume 10.9H, Monocytes # (Auto) 0.4, Monocytes (%) (Auto) 12, Neutrophils # (Auto) 1.4L, Neutrophils (%) (Auto) 38L, Phosphorus Level 3.9, Platelet Count 130, Potassium Level 3.5L, Red Blood Count 3.64L, Red Cell Distribution Width 14.4, Sodium Level 144, Troponin I 5.12*H, White Blood Count 3.6L Assessment/Plan Assessment/Plan Assess & Plan/Chief Complaint elevated troponin. Chest pain. CHF. Diabetes. Hypertension history. Hyperlipidemia. History of DVT and pulmonary embolism. . 07/24/16. Non-ST elevated [place]. Congestive heart failure. Diabetes. Hypertension. Hyperlipidemia. History of DVT and pulmonary embolism. Patient had no chest pain this morning the last night. Troponin and BNP still elevated. Patient feels weaker today. Patient is a 2 person assist. Patient will try a walker today with physical therapy and occupational therapy. Patient lives alone. Patient has dysphagia from a previous CVA. . 07/25/16. Patient had a bad night had chest pain and required nitroglycerin. Troponin coming down still 5.12. Patient frightened this morning and teary-eyed and not feeling good. Non-ST elevated [place]. CHF Diagnosis/Problems: Clinical Quality Measures AMI/AHF: ASA po Prior to arrival: Yes DVT/VTE Risk/Contraindication: Risk Factor Score Per Nursin RFS Level Per Nursing on Admit: 4+=Very High OUSMANE LONG DO Jul 25, 2016 07:48
[2016-07-25] MEDS ORDERED: KCL 10 MEQ TAB (MICRO K) PO ONE (08:00)
[2016-07-25] MEDS: sitaGLIPtin 50 MG (JANUVIA) TAB PO SCH (08:28)
[2016-07-25] MEDS: SACUBITRIL/VALSARTAN 24/26 MG (ENTRESTO) TABLET PO SCH ×2 (08:28→20:35)
[2016-07-25] MEDS: ASPIRIN 81 MG CHEW (CHILDREN'S ASA) PO SCH (08:29)
[2016-07-25] MEDS: ALPRAZolam 0.25 MG (XANAX) TAB PO SCH ×2 (08:29→20:35)
[2016-07-25] MEDS: FUROSEMIDE 40 MG (LASIX) TAB PO SCH (08:29)
[2016-07-25] MEDS: PHENYTOIN 100 MG (DILANTIN) CAP PO SCH ×2 (08:29→20:35)
[2016-07-25] MEDS: LEVOTHYROXINE 25 MCG (LEVOTHROID) TAB PO SCH (08:29)
[2016-07-25] MEDS: PANTOPRAZOLE 40 MG (PROTONIX) TAB PO SCH (08:29)
[2016-07-25] MEDS: SPIRONOLACTONE 25 MG (ALDACTONE) TAB PO SCH (08:30)
[2016-07-25] MEDS: VITAMIN D3 1,000 UNITS (CHOLECALCIFEROL) TABLET PO SCH (08:30)
[2016-07-25] MEDS: APIXABAN 5 MG (ELIQUIS) TABLET PO SCH ×2 (08:30→20:35)
--- NOTE | 2016-07-25 10:35 | Cardiology Progress Note ---
Subjective Subjective/Events-last exam Patient in bed. Had episode of CP last night, relieved by nitro. Denies any CP this morning. Requesting to go home. Review of Systems General: No Night Sweats, No Fatigue HEENT: No Visual Changes, No Dysphasia Pulmonary: No Dyspnea, No Cough Cardiovascular: : Chest PainNo: Edema, Palpitations, Paroxysmal Noc. Dyspnea Gastrointestinal: No: Abdominal Pain, Nausea, Vomiting Genitourinary: No Dysuria, No Frequency Musculoskeletal: No: back pain, neck pain Neurological: No: Change in speech, Confusion, Numbness, Weakness Objective-Cardiology Exam Last Set of Vital Signs Vital Signs 07/22/16 07/23/16 07/25/16 18:24 07:28 08:00 Temp 98.0 Pulse 91 Resp 16 B/P 130/63 Pulse Ox 95 O2 Delivery Room Air O2 Flow Rate 1.00 FiO2 97 Capillary Refill : Less Than 3 Seconds I&O Intake and Output 07/25/16 00:00 Intake Total 1520 ml Output Total 700 ml Balance 820 ml Intake Oral 1520 ml Output Urine Total 700 ml # Voids 2 # Bowel Movements 2 General: Alert, Oriented X3, Cooperative HEENT: Atraumatic, PERRLA Neck: Supple, No JVD, No Thyromegaly Lungs: Clear to Auscultation, Normal Air Movement Heart: Regular Rate, Normal S1, Normal S2, Other (systolic murmur at the left sternal border) Abdomen: Normal Bowel Sounds, Soft, No Tenderness, No Hepatosplenomegaly, No Masses Extremities: No Clubbing, No Cyanosis, No Edema, Normal Pulses, No Tenderness/ Swelling Skin: No Rashes, No Breakdown, No Significant Lesion Neuro: Normal Gait, Normal Speech, Strength at 5/5 X4 Ext, Normal Tone, Sensation Intact Psych/Mental Status: Mental Status NL, Mood NL Results Lab Laboratory Tests 07/25/16 04:33 A/P-Cardiology Admission Diagnosis Non-ST elevation myocardial infarction Chest pain nonspecific etiology Coronary artery disease Congestive heart failure, chronic compensated left ventricular systolic dysfunction, ischemic cardiomyopathy Assessment/Plan Non-ST elevation myocardial infarction, 2 episodes of chest pain with elevation in troponin level. Had another episode of CP last night. Responded to sublingual nitroglycerin, borderline hypotensive. Had history of coronary artery disease with CABG, done in the remote past. Patient requesting conservative management. Had a similar episode in May 2016 and treated conservatively. patient was noted to have significant elevation in troponin level, he had a long discussion with the patient and her daughter regarding the need for possible cardiac catheterization, patient insisted on conservative management, reported that she had her stroke after cardiac catheterization in 2009 in [place]. Prefer not to have the procedure done and understand that there is a risk without having the cardiac catheterization. Troponin level elevated but trending down. Educated about the use of nitroglycerin as needed. Congestive heart failure, chronic left ventricular systolic dysfunction, compensated, ischemic cardiomyopathy, last echocardiogram was done in May 2016 showing ejection fraction 30 percent, pulmonary artery pressure of 45 mmHg , diastolic dysfunction, maintained on metoprolol and Entresto, diuretics with Lasix and spironolactone. Continue to monitor closely. History of CVA with aphasia, right-sided hemiparesis. No change from baseline. 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 Diabetes mellitus, followed and managed by primary care physician Hypertension, currently borderline hypotensive secondary to medications. Continue to monitor blood pressure. Hyperlipidemia. History of seizure disorder, followed by primary care physician. Clinical Quality Measures AMI/AHF: ASA po Prior to arrival: Yes DVT/VTE Risk/Contraindication: Risk Factor Score Per Nursin RFS Level Per Nursing on Admit: 4+=Very High LORNA HANSEN Jul 25, 2016 10:35
--- NOTE | 2016-07-25 14:02 | Cardiology Progress Note ---
Subjective Subjective/Events-last exam patient is in bed, feeling better, had another episode of chest pain last night. Currently reporting improvement. Asking to go home. Planning to send her to be [facility] Review of Systems General: No Chills, No Night Sweats, No Fatigue, No Malaise, No Appetite, No Other HEENT: No Head Aches, No Visual Changes, No Eye Pain, No Ear Pain, No Dysphasia , No Sinus Congestion, No Post Nasal Drip, No Sore Throat, No Other Pulmonary: No Dyspnea, No Cough, No Pleuritic Chest Pain, No Other Cardiovascular: : Chest PainNo: Edema, Lt Headedness, Orthopnea, Other, Palpitations, Paroxysmal Noc. Dyspnea Objective-Cardiology Exam Last Set of Vital Signs Vital Signs 07/22/16 07/23/16 07/25/16 18:24 07:28 12:00 Temp 97.4 Pulse 72 Resp 18 B/P 120/59 Pulse Ox 97 O2 Delivery Room Air O2 Flow Rate 1.00 FiO2 97 Capillary Refill : Less Than 3 SecondsLess Than 3 Seconds I&O Intake and Output 07/25/16 00:00 Intake Total 1520 ml Output Total 700 ml Balance 820 ml Intake Oral 1520 ml Output Urine Total 700 ml # Voids 2 # Bowel Movements 2 General: Alert, Oriented X3, Cooperative HEENT: Atraumatic, PERRLA Neck: Supple, No JVD, No Thyromegaly Lungs: Clear to Auscultation, Normal Air Movement Heart: Regular Rate, Normal S1, Normal S2, Other (systolic murmur at the left sternal border) Abdomen: Normal Bowel Sounds, Soft, No Tenderness, No Hepatosplenomegaly, No Masses Extremities: No Clubbing, No Cyanosis, No Edema, Normal Pulses, No Tenderness/ Swelling Skin: No Rashes, No Breakdown, No Significant Lesion Neuro: Normal Gait, Normal Speech, Strength at 5/5 X4 Ext, Normal Tone, Sensation Intact Psych/Mental Status: Mental Status NL, Mood NL Results Lab Laboratory Tests 07/25/16 04:33 A/P-Cardiology Admission Diagnosis Non-ST elevation myocardial infarction Chest pain nonspecific etiology Coronary artery disease Congestive heart failure, chronic compensated left ventricular systolic dysfunction, ischemic cardiomyopathy Assessment/Plan Non-ST elevation myocardial infarction, 2 episodes of chest pain with elevation in troponin level. Had another episode of CP last night. Responded to sublingual nitroglycerin, borderline hypotensive. Had history of coronary artery disease with CABG, done in the remote past. Patient requesting conservative management. Had a similar episode in May 2016 and treated conservatively. patient was noted to have significant elevation in troponin level, he had a long discussion with the patient and her daughter regarding the need for possible cardiac catheterization, patient insisted on conservative management, reported that she had her stroke after cardiac catheterization in 2009 in [place]. Prefer not to have the procedure done and understand that there is a risk without having the cardiac catheterization. Troponin level elevated but trending down. Educated about the use of nitroglycerin as needed. okay for discharge from cardiac standpoint Congestive heart failure, chronic left ventricular systolic dysfunction, compensated, ischemic cardiomyopathy, last echocardiogram was done in May 2016 showing ejection fraction 30 percent, pulmonary artery pressure of 45 mmHg , diastolic dysfunction, maintained on metoprolol and Entresto, diuretics with Lasix and spironolactone. Continue to monitor closely. History of CVA with aphasia, right-sided hemiparesis. No change from baseline. 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 Diabetes mellitus, followed and managed by primary care physician Hypertension, currently borderline hypotensive secondary to medications. Continue to monitor blood pressure. Hyperlipidemia. History of seizure disorder, followed by primary care physician. Clinical Quality Measures AMI/AHF: ASA po Prior to arrival: Yes DVT/VTE Risk/Contraindication: Risk Factor Score Per Nursin RFS Level Per Nursing on Admit: 4+=Very High MILLER HYDE MD Jul 25, 2016 14:02
--- NOTE | 2016-07-25 15:19 | Physical Therapy Daily Note ---
PT Daily Note-Current Subjective Pt is supine in bed upon arrival. Pt is non verbal to PT but can write answers as well as nod/shake for response. Pt agrees to PT. Pain Numeric Pain Scale: 0-No Pain Location: No Pain Reported Mental Status Patient Orientation: Person, Non-Verbal/Aphasic Transfers Functional [place] Measure 0=Not Assessed/NA 4=Minimal Assistance 1=Total Assistance 5=Supervision or Setup 2=Maximal Assistance 6=Modified [place] 3=Moderate Assistance 7=Complete IndependenceIRFPAI Quality Coding Scale 6 Independent with activity with or without an assistive device 5 Patient requires set up or clean up by helper. Patient completes activity by themselves 4 Supervision or touching assist (CGA). [place] provide cues , steadying assist 3 The helper provides less than half the effort to complete the activity 2 The helper provides more than half the effort to complete the activity 1 Dependent. The helper does all the effort to complete an activity 7 Patient refused to complete or attempt activity 9 The patient did not perform the activity before the current illness or injury 88 Not attempted due to Medical conditions or safety concerns Scootin Rollin Supine to/from Sit: 5 Sit to/from Stand: 4 Weight Bearing Weight Bearing Restriction: Full Weight Bearing Location Restriction: LE Bilateral Gait Training Distance (FIM): 1=up to 49 ft Distance: 35' Gait Level of Assist: 4 Gait Persons Needed: 1 Gait Assistive Device: FWW Pt walks slow but steady with no LOB but fatigues easy and cannot walk far. Treatments Pt is aphasic and takes a little to understand or get a response at first but agrees to ambulate in hallway and make small [place] outside of room before returning to bed. Pt declines transferring to recliner when asked. Pt transfers to EOB at CGA then EOB to supine at Min A for assistance with lifting legs into bed. Pt needs assistance in scooting up in bed. Pt is left in bed with head of bed raised and all needs met at end of tx. Assessment Current Status: Fair Progress Pt fatigues easy, is aphasic and weak on R side probably from stroke. PT Loss Prevention Consultant Goals Loss Prevention Consultant Goals PT Loss Prevention Consultant Goals Time Frame: Jul 31, 2016 Transfers (B,C,W/C) (FIM): 6 Gait (FIM): 6 Gait distance (FIM): 3=150 ft Gait Assistive Device: FWW PT Plan Problem List Problem List: Activity Tolerance, Functional Strength, Safety, Balance, Gait, Transfer, Bed Mobility Treatment/Plan Treatment Plan: Continue Plan of Care Treatment Plan: Bed Mobility, Education, Functional Activity Damon, Functional Strength, Gait, Safety, Therapeutic Exercise, Transfers Treatment Duration: Jul 31, 2016 Visits Per Week: 5-6 Safety Risks/Education Patient Education: Gait Training, Transfer Techniques, Correct Positioning, Safety Issues Teaching Recipient: Patient Teaching Methods: Discussion Response to Teaching: Return Demonstration Time/GCodes Time In: 1445 Time Out: 1500 Total Billed Treatment Time: 15 Total Billed Treatment visit, GT (15m) GREGOR PELLETIER PTA Jul 25, 2016 15:19
--- NOTE | 2016-07-25 15:52 | Occupational Ther Daily Note ---
OT Current Status-Daily Note Subjective Pt seen in room, up in bed, agreeable to OT. Declined bathing, dressing, grooming but indicated she did need to toilet. Appearance Alert, cooperative, mostly nonverbal Mental Status/Objective Functional [place] Measure 0=Not Assessed/NA 4=Minimal Assistance 1=Total Assistance 5=Supervision or Setup 2=Maximal Assistance 6=Modified [place] 3=Moderate Assistance 7=Complete [place] ADL-Treatment Needed min assist sit to sand from bed, min assist walking to bathroom with FWW , min assist walking to recliner. Pt left up in recliner, call light present, all needs met. Requested telemetry sheriff bag from RN Toileting (FIM): 3 (Pt was able to pull pants down with CGA, wipe with encouragement, needed help to pull briefs up. FWW, tall toilet) Toilet/Commode Transfer (FIM): 4 (Min assist off tall toilet, pulling up from walker) Education OT Patient Education: Modified ADL techniques, Transfer techniques Teaching Recipient: Patient Teaching Methods: Demonstration Response to Teaching: Return Demonstration OT Short Term Goals Short Term Goals 1=Demonstrate adherence to instructed precautions during ADL tasks. 2=Patient will verbalize/demonstrate understanding of assistive devices/ modifications for ADL. 3=Patient will improve strength/tolerance for activity to enable patient to perform ADL's. OT Global Sales Manager Goals [facility] Goals Time Frame: 2 weeks Grooming(FIM): 6 Bathing(FIM): 5 Upper Body Dressing(FIM): 6 Lower Body Dressing(FIM): 5 Toileting(FIM): 6 Toilet/Commode Transfer(FIM): 6 Additional Goals: 1-Demonstrate ADL Tasks, 2-Verbalize Understanding, 3- ImproveStrength/Damon 1=Demonstrate adherence to instructed precautions during ADL tasks. 2=Patient will verbalize/demonstrate understanding of assistive devices/ modifications for ADL. 3=Patient will improve strength/tolerance for activity to enable patient to perform ADL's. OT Education/Plan Problem List/Assessment Pt to benefit from skilled OT intervention for ADL training, transfers, strengthening, and home safety education to maximize level of functioning and allow safe discharge home. Discharge Recommendations Plan/Recommendations: Continue POC Treatment Plan/Plan of Care Patient would benefit from OT for education, treatment and training to promote independence in ADL's, mobility, safety and/or upper extremity function for ADL' s. Treatment Duration: Aug 07, 2016 Agreement: Yes Rehab Potential: Good Time/GCodes Start Time: 10:50 Stop Time: 11:05 Total Time Billed (hr/min): 15 Billed Treatment Time visit, ADL 15 minutes OCTAVIO DE DIOS OT Jul 25, 2016 15:52
[2016-07-25] MEDS: AMITRIPTYLINE 25 MG (ELAVIL) TAB PO SCH (20:35)
[2016-07-25] MEDS: ATORVASTATIN 40 MG (LIPITOR) TABLET PO SCH (20:35)
[2016-07-25] MEDS: PERPHENAZINE 2 MG (TRILAFON) TAB PO SCH (20:35)
[2016-07-25] MEDS: TOLTERODINE LA 4 MG (DETROL) CAP PO SCH (20:35)
[2016-07-26] VITALS: BP 116/66
[2016-07-26 04:00] VITALS: BP 122/74
[2016-07-26 05:34] LABS: BASOPHILS % (AUTO) 0 % (0-10); EOSINOPHILS # (AUTO) 0.3 10^3/uL (0.0-0.3); EOSINOPHILS % (AUTO) 7 % (0-10); LYMPHOCYTES # (AUTO) 1.8 X 10^3 (1.0-4.0); LYMPHOCYTES % (AUTO) 49 % (12-44); MEAN CORPUSCULAR HEMOGLOBIN 33 PG (25-34); MEAN CORPUSCULAR HGB CONC 34 G/DL (32-36); MEAN CORPUSCULAR VOLUME 99 FL (80-99); MEAN PLATELET VOLUME 10.9 FL (7.4-10.4); MONOCYTES # (AUTO) 0.4 X 10^3 (0.0-1.0); MONOCYTES % (AUTO) 11 % (0-12); NEUTROPHILS # (AUTO) 1.2 X 10^3 (1.8-7.8); NEUTROPHILS % (AUTO) 33 % (42-75); PLATELET COUNT 123 10^3/uL (130-400); RED BLOOD COUNT 3.74 10^6/uL (4.35-5.85); RED CELL DISTRIBUTION WIDTH 14.4 % (10.0-14.5); WHITE BLOOD COUNT 3.7 10^3/uL (4.3-11.0)
[2016-07-26 05:53] LABS: CALCIUM 8.9 MG/DL (8.5-10.1); CREATININE SERUM 1.08 MG/DL (0.60-1.30); MAGNESIUM 1.9 MG/DL (1.8-2.4); PHOSPHORUS 3.9 MG/DL (2.3-4.7); POTASSIUM 3.5 MMOL/L (3.6-5.0)
[2016-07-26 06:02] LABS: TROPONIN I 4.11 NG/ML (<0.30)
[2016-07-26] MEDS: VENlafaxine XR 75 MG (EFFEXOR XR) CAP PO SCH (06:28)
[2016-07-26] MEDS: KCL 20 MEQ TAB (K-DUR) PO SCH (06:28)
--- NOTE | 2016-07-26 07:23 | Cardiology Progress Note ---
Subjective Subjective/Events-last exam Patient is feeling better, had a better night, no chest pain or shortness of breath, eating breakfast Review of Systems General: No Chills, No Night Sweats, No Fatigue, No Malaise, No Appetite, No Other HEENT: No Head Aches, No Visual Changes, No Eye Pain, No Ear Pain, No Dysphasia , No Sinus Congestion, No Post Nasal Drip, No Sore Throat, No Other Pulmonary: No Dyspnea, No Cough, No Pleuritic Chest Pain, No Other Cardiovascular: No: Chest Pain, Edema, Lt Headedness, Orthopnea, Other, Palpitations, Paroxysmal Noc. Dyspnea Objective-Cardiology Exam Last Set of Vital Signs Vital Signs 07/22/16 07/23/16 07/26/16 18:24 07:28 04:00 Temp 96.7 Pulse 79 Resp 18 B/P 122/74 Pulse Ox 98 O2 Delivery Room Air O2 Flow Rate 1.00 FiO2 97 Capillary Refill : Less Than 3 SecondsLess Than 3 Seconds I&O Intake and Output 07/25/16 23:59 Intake Total 1530 ml Output Total 1200 ml Balance 330 ml Intake Oral 1530 ml Output Urine Total 1200 ml # Voids 3 # Bowel Movements 1 General: Alert, Oriented X3, Cooperative HEENT: Atraumatic, PERRLA Neck: Supple, No JVD, No Thyromegaly Lungs: Clear to Auscultation, Normal Air Movement Heart: Regular Rate, Normal S1, Normal S2, Other (systolic murmur at the left sternal border) Abdomen: Normal Bowel Sounds, Soft, No Tenderness, No Hepatosplenomegaly, No Masses Extremities: No Clubbing, No Cyanosis, No Edema, Normal Pulses, No Tenderness/ Swelling Skin: No Rashes, No Breakdown, No Significant Lesion Neuro: Normal Gait, Normal Speech, Strength at 5/5 X4 Ext, Normal Tone, Sensation Intact Psych/Mental Status: Mental Status NL, Mood NL Results Lab Laboratory Tests 07/26/16 05:22 A/P-Cardiology Admission Diagnosis Non-ST elevation myocardial infarction Chest pain nonspecific etiology Coronary artery disease Congestive heart failure, chronic compensated left ventricular systolic dysfunction, ischemic cardiomyopathy Assessment/Plan Non-ST elevation myocardial infarction, 2 episodes of chest pain with elevation in troponin level. Had another episode of CP last night. Responded to sublingual nitroglycerin, borderline hypotensive. Had history of coronary artery disease with CABG, done in the remote past. Patient requesting conservative management. Had a similar episode in May 2016 and treated conservatively. patient was noted to have significant elevation in troponin level, he had a long discussion with the patient and her daughter regarding the need for possible cardiac catheterization, patient insisted on conservative management, reported that she had her stroke after cardiac catheterization in 2009 in [place]. Prefer not to have the procedure done and understand that there is a risk without having the cardiac catheterization. Troponin level elevated but trending down. Better after Xanax, Okay for discharge from cardiac standpoint Congestive heart failure, chronic left ventricular systolic dysfunction, compensated, ischemic cardiomyopathy, last echocardiogram was done in May 2016 showing ejection fraction 30 percent, pulmonary artery pressure of 45 mmHg , diastolic dysfunction, maintained on metoprolol and Entresto, diuretics with Lasix and spironolactone. Continue to monitor closely. History of CVA with aphasia, right-sided hemiparesis. No change from baseline. 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 Diabetes mellitus, followed and managed by primary care physician Hypertension, currently borderline hypotensive secondary to medications. Continue to monitor blood pressure. Hyperlipidemia. History of seizure disorder, followed by primary care physician. Clinical Quality Measures AMI/AHF: ASA po Prior to arrival: Yes DVT/VTE Risk/Contraindication: Risk Factor Score Per Nursin RFS Level Per Nursing on Admit: 4+=Very High MILLER HYDE MD Jul 26, 2016 07:23
--- NOTE | 2016-07-26 07:38 | Progress Note (SOAP) ---
Subjective Subjective/Events-last exam patient feeling better today. Patient not having any chest pain. Patient ready to go to via [facility]. Patient weak. Patient realizes she has to get stronger. To discharge today. Troponin 4.11 decreasing. Non-ST elevated myocardial infarction. Chest pain resolved. Coronary artery disease. Congestive heart failure chronic. Diabetes Objective Exam Vital Signs Date Time Temp Pulse Resp B/P Pulse Ox O2 Delivery O2 Flow Rate FiO2 07/26/16 07:25 Room Air 97 07/26/16 07:00 80 07/26/16 04:00 96.7 79 18 122/74 98 Room Air 07/26/16 01:00 80 07/26/16 00:00 97.5 84 18 116/66 98 Room Air 07/25/16 20:00 Room Air 07/25/16 19:45 98.0 81 16 114/61 96 Room Air 07/25/16 19:15 Room Air 07/25/16 19:00 82 07/25/16 16:15 99.1 70 18 126/62 96 Room Air 07/25/16 12:59 75 07/25/16 12:00 97.4 72 18 120/59 97 Room Air 07/25/16 11:29 92 Room Air 07/25/16 11:29 95 07/25/16 08:00 98.0 91 16 130/63 95 Room Air I & O 07/26/16 07:00 Intake Total 1330 ml Output Total 600 ml Balance 730 ml Capillary Refill : Less Than 3 SecondsLess Than 3 Seconds General Appearance: No Apparent Distress Thin HEENT: Normal ENT Inspection Neck: Full Range of Motion Normal Inspection Respiratory: Chest Non Tender Lungs Clear Normal Breath Sounds No Accessory Muscle Use No Respiratory Distress Cardiovascular: Regular Rate, Rhythm No Murmur Gastrointestinal: non tender soft Results Lab Laboratory Tests 07/26/16 05:22 Laboratory Tests 07/26/16 05:22: Anion Gap 9, BUN/Creatinine Ratio 12, Basophils # (Auto) 0.0, Basophils (%) ( Auto) 0, Blood Urea Nitrogen 13, Calcium Level 8.9, Carbon Dioxide Level 27, Chloride Level 107, Creatinine 1.08, Eosinophils # (Auto) 0.3, Eosinophils (%) ( Auto) 7, Estimat Glomerular Filtration Rate 48, Glucose Level 87, Hematocrit 37 , Hemoglobin 12.4, Lymphocytes # (Auto) 1.8, Lymphocytes (%) (Auto) 49H, Magnesium Level 1.9, Mean Corpuscular Hemoglobin 33, Mean Corpuscular Hemoglobin Concent 34, Mean Corpuscular Volume 99, Mean Platelet Volume 10.9H, Monocytes # (Auto) 0.4, Monocytes (%) (Auto) 11, Neutrophils # (Auto) 1.2L, Neutrophils (%) (Auto) 33L, Phosphorus Level 3.9, Platelet Count 123L, Potassium Level 3.5L, Red Blood Count 3.74L, Red Cell Distribution Width 14.4, Sodium Level 143, Troponin I 4.11*H, White Blood Count 3.7L Assessment/Plan Assessment/Plan Assess & Plan/Chief Complaint elevated troponin. Chest pain. CHF. Diabetes. Hypertension history. Hyperlipidemia. History of DVT and pulmonary embolism. . 07/24/16. Non-ST elevated IA. Congestive heart failure. Diabetes. Hypertension. Hyperlipidemia. History of DVT and pulmonary embolism. Patient had no chest pain this morning the last night. Troponin and BNP still elevated. Patient feels weaker today. Patient is a 2 person assist. Patient will try a walker today with physical therapy and occupational therapy. Patient lives alone. Patient has dysphagia from a previous CVA. . 07/25/16. Patient had a bad night had chest pain and required nitroglycerin. Troponin coming down still 5.12. Patient frightened this morning and teary-eyed and not feeling good. Non-ST elevated IA. CHF. . 07/26/16. Patient doing good today. Patient happy. Patient to be transferred via [facility] today. Troponin coming down 4.11. Patient not having any chest pain. Non-ST elevated myocardial infarction. Chest pain resolved. Coronary artery disease. CHF chronic. Diabetes Diagnosis/Problems: Clinical Quality Measures AMI/AHF: ASA po Prior to arrival: Yes DVT/VTE Risk/Contraindication: Risk Factor Score Per Nursin RFS Level Per Nursing on Admit: 4+=Very High OUSMANE LONG DO Jul 26, 2016 07:38
--- NOTE | 2016-07-26 07:40 | Discharge Inst-Skilled Nursing ---
Discharge Inst-Skilled NF Consult/Follow Up/Orders Follow Up Appt.: 2 office in one week Skilled NF Admit to: [facility] Certification (SNF) I certify that SNF services are required to be given on an inpatient basis because of the above named patient's need for intermediate care on a continuing basis for the conditions(s) for which he/she was receiving inpatient hospital services prior to his/her transfer to the SNF. Fdc Facility Order: Nursing Services, Manager Utility-Evaluate & Treat, Physical Therapy-Evaluate & Treat Discharge Diet: ADA Diet, Other Diet (2 g sodium) New & Resume Previous Orders Rian Long Jul 26, 2016 07:39 Pneu Vac Indicated: Yes RIAN LONG DO Jul 26, 2016 07:40
[2016-07-26 08:00] VITALS: BP_SYST 126; BP_SYST 128; BP_DIAS 61; BP_DIAS 63
[2016-07-26] MEDS: ASPIRIN 81 MG CHEW (CHILDREN'S ASA) PO SCH (08:23)
[2016-07-26] MEDS: VITAMIN D3 1,000 UNITS (CHOLECALCIFEROL) TABLET PO SCH (08:23)
[2016-07-26] MEDS: APIXABAN 5 MG (ELIQUIS) TABLET PO SCH (08:23)
[2016-07-26] MEDS: SPIRONOLACTONE 25 MG (ALDACTONE) TAB PO SCH (08:23)
[2016-07-26] MEDS: ALPRAZolam 0.25 MG (XANAX) TAB PO SCH (08:23)
[2016-07-26] MEDS: PHENYTOIN 100 MG (DILANTIN) CAP PO SCH (08:24)
[2016-07-26] MEDS: SACUBITRIL/VALSARTAN 24/26 MG (ENTRESTO) TABLET PO SCH (08:24)
[2016-07-26] MEDS: FUROSEMIDE 40 MG (LASIX) TAB PO SCH (08:24)
[2016-07-26] MEDS: sitaGLIPtin 50 MG (JANUVIA) TAB PO SCH (08:24)
[2016-07-26] MEDS: LEVOTHYROXINE 25 MCG (LEVOTHROID) TAB PO SCH (08:24)
[2016-07-26] MEDS: PANTOPRAZOLE 40 MG (PROTONIX) TAB PO SCH (08:24)
[2016-07-26] MEDS ORDERED: ALPR0.254 PO (11:55)
[2016-07-26 12:00] VITALS: BP 113/65
--- NOTE | 2016-07-26 12:04 | Occupational Ther Daily Note ---
OT Current Status-Daily Note Subjective Pt in bed when therapist arrives. Pt non-verbal, but smiles and answers yes/no questions. Mental Status/Objective Functional [place] Measure 0=Not Assessed/NA 4=Minimal Assistance 1=Total Assistance 5=Supervision or Setup 2=Maximal Assistance 6=Modified [place] 3=Moderate Assistance 7=Complete Jessamine ADL-Treatment Pt supine to sit with supervision. Pt donned socks with set up while seated EOB. Sit to stand with CGA. Gait to restroom with FWW. Pt transferred to toilet with SBA using grab bar. Pt able to pull pants down and complete toileting hygiene, but required assist to pull pants up. Stood at sink to wash hands with SBA. Pt returned to EOB, sit to supine with SBA. Pt in bed with needs met after session. Toileting (FIM): 3 Toilet/Commode Transfer (FIM): 4 OT Short Term Goals Short Term Goals 1=Demonstrate adherence to instructed precautions during ADL tasks. 2=Patient will verbalize/demonstrate understanding of assistive devices/ modifications for ADL. 3=Patient will improve strength/tolerance for activity to enable patient to perform ADL's. OT Fdc Goals Fdc Goals Time Frame: 2 weeks Grooming(FIM): 6 Bathing(FIM): 5 Upper Body Dressing(FIM): 6 Lower Body Dressing(FIM): 5 Toileting(FIM): 6 Toilet/Commode Transfer(FIM): 6 Additional Goals: 1-Demonstrate ADL Tasks, 2-Verbalize Understanding, 3- ImproveStrength/Damon 1=Demonstrate adherence to instructed precautions during ADL tasks. 2=Patient will verbalize/demonstrate understanding of assistive devices/ modifications for ADL. 3=Patient will improve strength/tolerance for activity to enable patient to perform ADL's. OT Education/Plan Problem List/Assessment Pt to benefit from skilled OT intervention for ADL training, transfers, strengthening, and home safety education to maximize level of functioning and allow safe discharge home. Discharge Recommendations Plan/Recommendations: Continue POC Treatment Plan/Plan of Care Patient would benefit from OT for education, treatment and training to promote independence in ADL's, mobility, safety and/or upper extremity function for ADL' s. Treatment Duration: Aug 07, 2016 Agreement: Yes Rehab Potential: Good Time/GCodes Start Time: 11:22 Stop Time: 12:22 Total Time Billed (hr/min): 10 Billed Treatment Time 1 visit, ADL(10minutes) GET JOSE OT Jul 26, 2016 12:04
[2016-07-26 15:18] VITALS: BP 113/65
--- NOTE | 2016-07-27 07:31 | Discharge Summary ---
Diagnosis/Chief Complaint Date of Admission Jul 22, 2016 at 03:32 Date of Discharge Jul 26, 2016 at 15:35 Discharge Date: Jul 26, 2016 Admission Diagnosis Admission Diagnosis CHEST PAIN ELEVATED TROPONIN HYPERTENSION CORONARY ARTERY DISEASE HYPERLIPIDEMIA GERD HX OF CVA DIABETES MELLITUS DEPRESSION Discharge Diagnosis non-ST elevated cardio infarction. Coronary artery disease. Old myocardial infarction. Hypertensive heart disease. Chronic systolic congestive heart failure. Ischemic cardiomyopathy. Dysphagia. DO NOT RESUSCITATE. Type II diabetes. Hyperlipidemia. Epilepsy. Discharge Summary Consultations cardiology Discharge Physical Examination Allergies: Coded Allergies: Penicillins (Verified Allergy, Unknown, 03/24/07) Sulfa (Sulfonamide Antibiotics) (Unverified Allergy, Unknown, 03/24/14) Vitals & I&Os Vital Signs Date Time Temp Pulse Resp B/P Pulse Ox O2 Delivery O2 Flow Rate FiO2 07/26/16 15:18 66 18 113/65 92 Room Air 07/26/16 12:00 97.9 07/26/16 07:25 97 07/23/16 07:28 1.00 Hospital Course patient wanted conservative management family did to. Patient's troponin went up showing a non-ST elevated TN. EKG did not show M I. Patient transferred [facility] Labs (last 24 hrs) Laboratory Tests 07/22/16 01:00: Alanine Aminotransferase (ALT/SGPT) 24, Albumin 3.9, Alkaline Phosphatase 81, Anion Gap 16H, Aspartate Amino Transf (AST/SGOT) 25, B-Type Natriuretic Peptide 721.2H, BUN/Creatinine Ratio 11, Basophils # (Auto) 0.0, Basophils (%) (Auto) 0 , Blood Urea Nitrogen 14, Calcium Level 9.1, Carbon Dioxide Level 23, Chloride Level 103, Creatinine 1.29, Eosinophils # (Auto) 0.1, Eosinophils (%) (Auto) 2, Estimat Glomerular Filtration Rate 39, Glucose Level 161H, Hematocrit 39, Hemoglobin 13.0, Lipase 47, Lymphocytes # (Auto) 2.2, Lymphocytes (%) (Auto) 31 , Magnesium Level 1.8, Mean Corpuscular Hemoglobin 33, Mean Corpuscular Hemoglobin Concent 34, Mean Corpuscular Volume 99, Mean Platelet Volume 10.9H, Monocytes # (Auto) 0.5, Monocytes (%) (Auto) 7, Neutrophils # (Auto) 4.3, Neutrophils (%) (Auto) 61, Phenytoin (Dilantin) Level 3.3L, Platelet Count 146, Potassium Level 3.3L, Red Blood Count 3.94L, Red Cell Distribution Width 14.2, Sodium Level 142, Total Bilirubin 0.5, Total Protein 6.2L, Troponin I < 0.30, White Blood Count 7.0 07/22/16 02:49: Troponin I 0.90*H, Phosphorus Level 3.4 07/22/16 10:30: Troponin I 8.98*H 07/23/16 03:45: Alanine Aminotransferase (ALT/SGPT) 21, Albumin 3.2, Alkaline Phosphatase 66, Anion Gap 10, Aspartate Amino Transf (AST/SGOT) 36H, B-Type Natriuretic Peptide 941.3H, BUN/Creatinine Ratio 13, Basophils # (Auto) 0.0, Basophils (%) (Auto) 1 , Blood Urea Nitrogen 13, Calcium Level 8.6, Carbon Dioxide Level 27, Chloride Level 106, Creatinine 0.98, Eosinophils # (Auto) 0.2, Eosinophils (%) (Auto) 5, Estimat Glomerular Filtration Rate 54, Glucose Level 109H, Hematocrit 36, Hemoglobin 11.9, Lymphocytes # (Auto) 1.7, Lymphocytes (%) (Auto) 38, Magnesium Level 1.8, Mean Corpuscular Hemoglobin 32, Mean Corpuscular Hemoglobin Concent 33, Mean Corpuscular Volume 99, Mean Platelet Volume 10.7H, Monocytes # (Auto) 0.4, Monocytes (%) (Auto) 10, Neutrophils # (Auto) 2.0, Neutrophils (%) (Auto) 46, Platelet Count 132, Potassium Level 3.0L, Red Blood Count 3.67L, Red Cell Distribution Width 14.7H, Sodium Level 143, Total Bilirubin 0.4, Total Protein 5.2L, Troponin I 9.40*H, White Blood Count 4.3, Phosphorus Level 3.8 07/24/16 04:45: Alanine Aminotransferase (ALT/SGPT) 20, Albumin 3.2, Alkaline Phosphatase 65, Anion Gap 9, Aspartate Amino Transf (AST/SGOT) 31, B-Type Natriuretic Peptide 786.3H, BUN/Creatinine Ratio 12, Basophils # (Auto) 0.0, Basophils (%) (Auto) 1 , Blood Urea Nitrogen 12, Calcium Level 8.8, Carbon Dioxide Level 27, Chloride Level 108H, Creatinine 0.98, Eosinophils # (Auto) 0.2, Eosinophils (%) (Auto) 5 , Estimat Glomerular Filtration Rate 54, Glucose Level 93, Hematocrit 35, Hemoglobin 11.7, Lymphocytes # (Auto) 1.6, Lymphocytes (%) (Auto) 48H, Magnesium Level 1.9, Mean Corpuscular Hemoglobin 33, Mean Corpuscular Hemoglobin Concent 33, Mean Corpuscular Volume 99, Mean Platelet Volume 10.8H, Monocytes # (Auto) 0.4, Monocytes (%) (Auto) 12, Neutrophils # (Auto) 1.2L, Neutrophils (%) (Auto) 34L, Phosphorus Level 3.4, Platelet Count 114L, Potassium Level 3.2L, Red Blood Count 3.58L, Red Cell Distribution Width 14.4, Sodium Level 144, Total Bilirubin 0.4, Total Protein 5.3L, Troponin I 6.82*H, White Blood Count 3.4L 07/25/16 04:33: Anion Gap 10, BUN/Creatinine Ratio 12, Basophils # (Auto) 0.0, Basophils (%) ( Auto) 1, Blood Urea Nitrogen 12, Calcium Level 8.6, Carbon Dioxide Level 26, Chloride Level 108H, Creatinine 0.99, Eosinophils # (Auto) 0.2, Eosinophils (%) (Auto) 5, Estimat Glomerular Filtration Rate 53, Glucose Level 95, Hematocrit 36 , Hemoglobin 11.9, Lymphocytes # (Auto) 1.6, Lymphocytes (%) (Auto) 44, Magnesium Level 1.9, Mean Corpuscular Hemoglobin 33, Mean Corpuscular Hemoglobin Concent 33, Mean Corpuscular Volume 99, Mean Platelet Volume 10.9H, Monocytes # (Auto) 0.4, Monocytes (%) (Auto) 12, Neutrophils # (Auto) 1.4L, Neutrophils (%) (Auto) 38L, Phosphorus Level 3.9, Platelet Count 130, Potassium Level 3.5L, Red Blood Count 3.64L, Red Cell Distribution Width 14.4, Sodium Level 144, Troponin I 5.12*H, White Blood Count 3.6L 07/26/16 05:22: Anion Gap 9, BUN/Creatinine Ratio 12, Basophils # (Auto) 0.0, Basophils (%) ( Auto) 0, Blood Urea Nitrogen 13, Calcium Level 8.9, Carbon Dioxide Level 27, Chloride Level 107, Creatinine 1.08, Eosinophils # (Auto) 0.3, Eosinophils (%) ( Auto) 7, Estimat Glomerular Filtration Rate 48, Glucose Level 87, Hematocrit 37 , Hemoglobin 12.4, Lymphocytes # (Auto) 1.8, Lymphocytes (%) (Auto) 49H, Magnesium Level 1.9, Mean Corpuscular Hemoglobin 33, Mean Corpuscular Hemoglobin Concent 34, Mean Corpuscular Volume 99, Mean Platelet Volume 10.9H, Monocytes # (Auto) 0.4, Monocytes (%) (Auto) 11, Neutrophils # (Auto) 1.2L, Neutrophils (%) (Auto) 33L, Phosphorus Level 3.9, Platelet Count 123L, Potassium Level 3.5L, Red Blood Count 3.74L, Red Cell Distribution Width 14.4, Sodium Level 143, Troponin I 4.11*H, White Blood Count 3.7L Laboratory Tests 07/22/16 01:00 07/23/16 03:45 07/24/16 04:45 07/25/16 04:33 07/26/16 05:22 Pending Labs Laboratory Tests 07/22/16 01:00: Alanine Aminotransferase (ALT/SGPT) 24, Albumin 3.9, Alkaline Phosphatase 81, Anion Gap 16, Aspartate Amino Transf (AST/SGOT) 25, B-Type Natriuretic Peptide 721.2, BUN/Creatinine Ratio 11, Basophils # (Auto) 0.0, Basophils (%) (Auto) 0, Blood Urea Nitrogen 14, Calcium Level 9.1, Carbon Dioxide Level 23, Chloride Level 103, Creatinine 1.29, Eosinophils # (Auto) 0.1, Eosinophils (%) (Auto) 2, Estimat Glomerular Filtration Rate 39, Glucose Level 161, Hematocrit 39, Hemoglobin 13.0, Lipase 47, Lymphocytes # (Auto) 2.2, Lymphocytes (%) (Auto) 31 , Magnesium Level 1.8, Mean Corpuscular Hemoglobin 33, Mean Corpuscular Hemoglobin Concent 34, Mean Corpuscular Volume 99, Mean Platelet Volume 10.9, Monocytes # (Auto) 0.5, Monocytes (%) (Auto) 7, Neutrophils # (Auto) 4.3, Neutrophils (%) (Auto) 61, Phenytoin (Dilantin) Level 3.3, Platelet Count 146, Potassium Level 3.3, Red Blood Count 3.94, Red Cell Distribution Width 14.2, Sodium Level 142, Total Bilirubin 0.5, Total Protein 6.2, Troponin I < 0.30, White Blood Count 7.0 07/22/16 02:49: Troponin I 0.90, Phosphorus Level 3.4 07/22/16 10:30: Troponin I 8.98 07/23/16 03:45: Alanine Aminotransferase (ALT/SGPT) 21, Albumin 3.2, Alkaline Phosphatase 66, Anion Gap 10, Aspartate Amino Transf (AST/SGOT) 36, B-Type Natriuretic Peptide 941.3, BUN/Creatinine Ratio 13, Basophils # (Auto) 0.0, Basophils (%) (Auto) 1, Blood Urea Nitrogen 13, Calcium Level 8.6, Carbon Dioxide Level 27, Chloride Level 106, Creatinine 0.98, Eosinophils # (Auto) 0.2, Eosinophils (%) (Auto) 5, Estimat Glomerular Filtration Rate 54, Glucose Level 109, Hematocrit 36, Hemoglobin 11.9, Lymphocytes # (Auto) 1.7, Lymphocytes (%) (Auto) 38, Magnesium Level 1.8, Mean Corpuscular Hemoglobin 32, Mean Corpuscular Hemoglobin Concent 33, Mean Corpuscular Volume 99, Mean Platelet Volume 10.7, Monocytes # (Auto) 0.4, Monocytes (%) (Auto) 10, Neutrophils # (Auto) 2.0, Neutrophils (%) (Auto) 46, Platelet Count 132, Potassium Level 3.0, Red Blood Count 3.67, Red Cell Distribution Width 14.7, Sodium Level 143, Total Bilirubin 0.4, Total Protein 5.2, Troponin I 9.40, White Blood Count 4.3, Phosphorus Level 3.8 07/24/16 04:45: Alanine Aminotransferase (ALT/SGPT) 20, Albumin 3.2, Alkaline Phosphatase 65, Anion Gap 9, Aspartate Amino Transf (AST/SGOT) 31, B-Type Natriuretic Peptide 786.3, BUN/Creatinine Ratio 12, Basophils # (Auto) 0.0, Basophils (%) (Auto) 1, Blood Urea Nitrogen 12, Calcium Level 8.8, Carbon Dioxide Level 27, Chloride Level 108, Creatinine 0.98, Eosinophils # (Auto) 0.2, Eosinophils (%) (Auto) 5, Estimat Glomerular Filtration Rate 54, Glucose Level 93, Hematocrit 35, Hemoglobin 11.7, Lymphocytes # (Auto) 1.6, Lymphocytes (%) (Auto) 48, Magnesium Level 1.9, Mean Corpuscular Hemoglobin 33, Mean Corpuscular Hemoglobin Concent 33, Mean Corpuscular Volume 99, Mean Platelet Volume 10.8, Monocytes # (Auto) 0.4, Monocytes (%) (Auto) 12, Neutrophils # (Auto) 1.2, Neutrophils (%) (Auto) 34, Phosphorus Level 3.4, Platelet Count 114, Potassium Level 3.2, Red Blood Count 3.58, Red Cell Distribution Width 14.4, Sodium Level 144, Total Bilirubin 0.4, Total Protein 5.3, Troponin I 6.82, White Blood Count 3.4 07/25/16 04:33: Anion Gap 10, BUN/Creatinine Ratio 12, Basophils # (Auto) 0.0, Basophils (%) ( Auto) 1, Blood Urea Nitrogen 12, Calcium Level 8.6, Carbon Dioxide Level 26, Chloride Level 108, Creatinine 0.99, Eosinophils # (Auto) 0.2, Eosinophils (%) ( Auto) 5, Estimat Glomerular Filtration Rate 53, Glucose Level 95, Hematocrit 36 , Hemoglobin 11.9, Lymphocytes # (Auto) 1.6, Lymphocytes (%) (Auto) 44, Magnesium Level 1.9, Mean Corpuscular Hemoglobin 33, Mean Corpuscular Hemoglobin Concent 33, Mean Corpuscular Volume 99, Mean Platelet Volume 10.9, Monocytes # (Auto) 0.4, Monocytes (%) (Auto) 12, Neutrophils # (Auto) 1.4, Neutrophils (%) (Auto) 38, Phosphorus Level 3.9, Platelet Count 130, Potassium Level 3.5, Red Blood Count 3.64, Red Cell Distribution Width 14.4, Sodium Level 144, Troponin I 5.12, White Blood Count 3.6 07/26/16 05:22: Anion Gap 9, BUN/Creatinine Ratio 12, Basophils # (Auto) 0.0, Basophils (%) ( Auto) 0, Blood Urea Nitrogen 13, Calcium Level 8.9, Carbon Dioxide Level 27, Chloride Level 107, Creatinine 1.08, Eosinophils # (Auto) 0.3, Eosinophils (%) ( Auto) 7, Estimat Glomerular Filtration Rate 48, Glucose Level 87, Hematocrit 37 , Hemoglobin 12.4, Lymphocytes # (Auto) 1.8, Lymphocytes (%) (Auto) 49, Magnesium Level 1.9, Mean Corpuscular Hemoglobin 33, Mean Corpuscular Hemoglobin Concent 34, Mean Corpuscular Volume 99, Mean Platelet Volume 10.9, Monocytes # (Auto) 0.4, Monocytes (%) (Auto) 11, Neutrophils # (Auto) 1.2, Neutrophils (%) (Auto) 33, Phosphorus Level 3.9, Platelet Count 123, Potassium Level 3.5, Red Blood Count 3.74, Red Cell Distribution Width 14.4, Sodium Level 143, Troponin I 4.11, White Blood Count 3.7 Radiology Reviewed chest x-ray atelectasis Discharge Home Medications: Active Scripts Active Alprazolam 0.25 Mg Tablet 0.25 Mg PO BID 30 Days Entresto 24 mg-26 mg Tablet (Sacubitril/Valsartan) 1 Each Tablet 1 Each PO BID Spironolactone 25 Mg Tablet 25 Mg PO DAILY Metoprolol Succinate 25 Mg Tab.er.24h 25 Mg PO DAILY Eliquis (Apixaban) 5 Mg Tablet 5 Mg PO BID Furosemide 40 Mg Tablet 40 Mg PO DAILY Aspirin 81 Mg Tab.chew 81 Mg PO DAILY@0900 OVER THE COUNTER Reported Potassium Chloride 20 Meq Tablet.er 20 Meq PO DAILY Toviaz (Fesoterodine Fumarate) 4 Mg Tab.sr.24h 4 Mg PO DAILY Pantoprazole Sodium 40 Mg Tablet.dr 40 Mg PO DAILY Levothyroxine Sodium 25 Mcg Tablet 25 Mcg PO DAILY Atorvastatin Calcium 40 Mg Tablet 40 Mg PO HS Perphen-Amitrip 2 mg-25 mg Tab (Perphenazine/Amitriptyline HCl) 1 Each Tablet 1 Tab PO HS Phenytoin Sodium Extended 100 Mg Capsule 100 Mg PO BID Fish Oil 1,000 mg Softgel ([place]-3/Dha/Epa/Fish Oil) 1 Each Capsule 1,000 Mg PO DAILY Pristiq (Desvenlafaxine Succinate) 50 Mg Tab.sr.24h 50 Mg PO DAILY Januvia (Sitagliptin Phosphate) 50 Mg Tablet 50 Mg PO DAILY Tylenol (Acetaminophen) 500 Mg Tablet 500 Mg PO Q6H PRN Vitamin D (Cholecalciferol) 1,000 Unit Tablet 1,000 Unit PO DAILY Instructions to patient/family Please see electonic discharge instructions given to patient. Clinical Quality Measures AMI/AHF: ASA po Prior to arrival: Yes DVT/VTE Risk/Contraindication: Risk Factor Score Per Nursin RFS Level Per Nursing on Admit: 4+=Very High OUSMANE LONG DO Jul 27, 2016 07:31
== END 2016-07-26 15:35 | DRG 281 ==
LOC: EDUNIT# 00:56 → ER 00:58 → ICU 03:32 → 4TH 07-23 17:12
PROVIDERS: ADMIT Family Medicine; ATTEND Family Medicine
DX: I21.4 Non-ST elevation (NSTEMI) myocardial infarction (principal); I25.10 Atherosclerotic heart disease of native coronary artery without angina pectoris; I25.2 Old myocardial infarction; I11.0 Hypertensive heart disease with heart failure; I50.22 Chronic systolic (congestive) heart failure; I25.5 Ischemic cardiomyopathy; I69.351 Hemiplegia and hemiparesis following cerebral infarction affecting right dominant side; I69.320 Aphasia following cerebral infarction; Z66 Do not resuscitate; E11.9 Type 2 diabetes mellitus without complications; E78.5 Hyperlipidemia, unspecified; G40.909 Epilepsy, unspecified, not intractable, without status epilepticus; F41.9 Anxiety disorder, unspecified; F32.9 Major depressive disorder, single episode, unspecified; Z95.1 Presence of aortocoronary bypass graft; Z79.84 Long term (current) use of oral hypoglycemic drugs; Z86.718 Personal history of other venous thrombosis and embolism; Z86.711 Personal history of pulmonary embolism
CPT/HCPCS: 36415; 71010; 80048; 80053; 80185; 83690; 83735; 83880; 84100; 84484; 85025; 85027; 93005; 94664; 94760

== ENCOUNTER 2016-08-26 10:08 | Emergency (ER) | payer MEDICARE ==
[~2016-08-26] VITALS: Ht 157.5 cm; Wt 66.8 kg
[~2016-08-26 10:08] MED LIST changes: +ALPR0.254 PO
--- OUTSIDE RECORDS SUMMARY | 2016-08-26 10:16 | XMS REPORT | Continuity of Care Document ---
Author Author [facility] Organization [facility] Address Unknown Phone Unavailable Care Team Providers Care Iuss Acoustic Analyst Name Role Phone OUSMANE LONG DO PCP Insurance Providers Payer Name Policy Number Subscriber Name Relationship Wps Medicare [id number] Lupe Verde 19 Self / Same As Patient Blue Cross [facility] Supp [id number] Lupe Verde 19 Self / Same As Patient Advance Directives Directive Response Recorded Date/Time Advance Directives No 04/27/16 7:00am Health Care Power of Flower Buncher Or Picker Maximino Valle, Daughter 04/27/16 7:00am Organ Donor [...] 1 Tab Oral Bedtime 2MG/25MG TABLET 03/23/14 [place]-3/Dha/Epa/Fish Oil 1,000 Mg 1,200 Mg Oral Daily [...] Tablet, 04/24/09 Discontinued [Thyroid] , 04/24/09 Discontinued [place]-3 Fatty Acids/Fish Oil 1 Each Capsule, 07/25/09 [...] Tab.sr.24h, 8 Mg Oral Daily 11/11/12 Discontinued [place]-3/Dha/Epa/Fish Oil 1 Each Capsule.dr, 1000 Mg Oral [...] Tab, 0 Mg Oral Daily 12/18/13 Discontinued [place]-3/Dha/Epa/Fish Oil 1,200 Mg Capsule, 1200 Mg Oral Daily 03/23/14 Discontinued Phenytoin Sodium 100 Mg Cap, 100 Mg Oral Three Times A Day 03/26/14 Discontinued [place]-3/Dha/Epa/Fish Oil 1 Each Capsule, 1000 Mg Oral [...] Type Severity Reaction Status Last Updated Penicillins ([id number]) Allergy Unknown Active 03/24/07 Sulfa (Sulfonamide Antibiotics) ([id number]) Allergy Unknown Active 04/27 Immunizations No immunization records. Vital Signs Acute Vital Signs Vital Response Date/Time Temperature (Fahrenheit) 98.1 degrees F (97.6 - 99.5) 04/27/2016 7:00am Temperature (Calculated Celsius) 36.44052 degrees C (36.4 - 37.5) 04/27/2016 7:00am [...] 2 inches 04/27/2016 7:00am Height (Calculated Centimeters) 157.807959 cm 04/27/2016 7:00am Weight (Pounds) 145 pounds 04/27/2016 7:00am Weight (Ounces) 0.0 oz 04/27/2016 7:00am Weight (Calculated Grams) 76254.894 gm 04/27/2016 7:00am Weight (Calculated Kilograms) 65.959582 kilograms 04/27/2016 7:00am Calculated BMI 26.52 04/27/2016 [...] Date Attending Provider Departed Emergency Room [facility] 04/27/16 6:50am 04/27 11:42am CORINE DE LA PAZ MD Recent Diagnosis
[2016-08-26 11:46] LABS: BASOPHILS % (AUTO) 1 % (0-10); EOSINOPHILS # (AUTO) 0.1 10^3/uL (0.0-0.3); EOSINOPHILS % (AUTO) 4 % (0-10); LYMPHOCYTES # (AUTO) 0.8 X 10^3 (1.0-4.0); LYMPHOCYTES % (AUTO) 29 % (12-44); MEAN CORPUSCULAR HEMOGLOBIN 33 PG (25-34); MEAN CORPUSCULAR HGB CONC 33 G/DL (32-36); MEAN CORPUSCULAR VOLUME 100 FL (80-99); MEAN PLATELET VOLUME 10.1 FL (7.4-10.4); MONOCYTES # (AUTO) 0.4 X 10^3 (0.0-1.0); MONOCYTES % (AUTO) 14 % (0-12); NEUTROPHILS # (AUTO) 1.5 X 10^3 (1.8-7.8); NEUTROPHILS % (AUTO) 52 % (42-75); PLATELET COUNT 134 10^3/uL (130-400); RED BLOOD COUNT 3.51 10^6/uL (4.35-5.85); RED CELL DISTRIBUTION WIDTH 14.5 % (10.0-14.5); WHITE BLOOD COUNT 2.9 10^3/uL (4.3-11.0)
[2016-08-26 11:55] LABS: BILIRUBIN,URINE NEGATIVE (NEGATIVE); KETONES,URINE NEGATIVE (NEGATIVE); LEUKOCYTE ESTERASE ,URINE NEGATIVE (NEGATIVE); NITRITE,URINE NEGATIVE (NEGATIVE); PH,URINE 6.5 (5-9); PROTEIN,URINE NEGATIVE (NEGATIVE); UROBILINOGEN,URINE NORMAL (NORMAL)
[2016-08-26 12:07] LABS: ALBUMIN 3.4 G/DL (3.2-4.5); BILIRUBIN,TOTAL 0.3 MG/DL (0.1-1.0); CALCIUM 8.6 MG/DL (8.5-10.1); CREATININE SERUM 1.16 MG/DL (0.60-1.30); POTASSIUM 3.6 MMOL/L (3.6-5.0); TOTAL PROTEIN 5.5 G/DL (6.4-8.2)
--- NOTE | 2016-08-26 12:12 | ED GU-Female ---
General Chief Complaint: -Female Stated Complaint: CANT URINATE, CP Nursing Triage Note: C/O unable to urinate today.Was only able to urinate once yesterday/. Daughter states left leg is more swollen. C/O intermittent cp- none since this am Nursing Sepsis Screen: No Definite Risk Source: family Exam Limitations: no limitations History of Present Illness Time seen by provider: 12:07 Initial Comments The patient's an 86-year-old white female. She was brought to the emergency room by her daughter. It is reported that she urinated only once yesterday and not at all today. There is been some dysuria. She did not speak to me during the interview. Her past history is positive for coronary artery bypass years ago. 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 The daughter states that she takes a goodly amount of oral fluids daily. She believes that her mother has a bit more swelling in her left leg which is not usual. The right leg is the graft harvest leg has swollen since the bypass surgery. She does not sleep in bed but recliner. Timing/Duration: yesterday Severity/Quality: mild Location: unknown Radiation: none Allergies and Home Medications Allergies Coded Allergies: Penicillins (Verified Allergy, Unknown, 08/26/16) Sulfa (Sulfonamide Antibiotics) (Unverified Allergy, Unknown, 03/24/14) Home Medications Acetaminophen 500 Mg Tablet 500 MG PO Q6H PRN PRN PAIN (Reported) Alprazolam 0.25 Mg Tablet 30Days 0.25 MG PO BID Prescribed by: JO ANN VIZCARRA on 07/26/16 1155 Apixaban 5 Mg Tablet #60 5 MG PO BID Prescribed by: JS HERRERA on 07/06/16 0853 Aspirin 81 Mg Tab.chew #0 81 MG PO DAILY@0900 OVER THE COUNTER Prescribed by: JS HERRERA on 07/06/16 0845 Atorvastatin Calcium 40 Mg Tablet 40 MG PO HS (Reported) Cholecalciferol 1,000 Unit Tablet 1,000 UNIT PO DAILY (Reported) Desvenlafaxine Succinate 50 Mg Tab.sr.24h 50 MG PO DAILY (Reported) Fesoterodine Fumarate 4 Mg Tab.sr.24h 4 MG PO DAILY (Reported) Furosemide 40 Mg Tablet #30 40 MG PO DAILY Prescribed by: JS HERRERA on 07/06/16 0853 Levothyroxine Sodium 25 Mcg Tablet 25 MCG PO DAILY (Reported) Metoprolol Succinate 25 Mg Tab.er.24h #30 25 MG PO DAILY Prescribed by: JS HERRERA on 07/06/16 0853 [place]-3/Dha/Epa/Fish Oil 1 Each Capsule 1,000 MG PO DAILY (Reported) Pantoprazole Sodium 40 Mg Tablet.dr 40 MG PO DAILY (Reported) Perphenazine/Amitriptyline HCl 1 Each Tablet 1 TAB PO HS (Reported) Phenytoin Sodium Extended 100 Mg Capsule 100 MG PO BID (Reported) Potassium Chloride 20 Meq Tablet.er 20 MEQ PO DAILY (Reported) Sacubitril/Valsartan 1 Each Tablet #60 1 EACH PO BID Prescribed by: MILLER HYDE on 07/23/16 0854 Sitagliptin Phosphate 50 Mg Tablet 50 MG PO DAILY (Reported) Spironolactone 25 Mg Tablet #30 25 MG PO DAILY Prescribed by: JS HERRERA on 07/06/16 0853 Constitutional: see HPI EENTM: no symptoms reported Respiratory: no symptoms reported Cardiovascular: chest pain Gastrointestinal: no symptoms reported Genitourinary: no symptoms reported Musculoskeletal: no symptoms reported Skin: no symptoms reported Psychiatric/Neurological: No Symptoms Reported Endocrine: No Symptoms Reported Hematologic/Lymphatic: No Symptoms Reported Past Xfgwvnw-Mauzxx-Xptwhc Hx Patient Social History Alcohol Use: Denies Use Recreational Drug Use: No Smoking Status: Never a Smoker 2nd Hand Smoke Exposure: No Recent Foreign Travel: No Contact w/Someone Who Travel: No Recent Infectious Disease Expo: No Recent Hopitalizations: Yes (Jul) Immunizations Up To Date Tetanus Booster (TDap): Unknown Date of Pneumonia Vaccine: Apr 17, 2010 Date of Influenza Vaccine: Sep 06, 2014 Seasonal Allergies Seasonal Allergies: No Surgeries HX Surgeries: Yes Surgeries: Abdominal, Cardiac, CABG, Eye Surgery, Hysterectomy, Joint Replacement, Oophorectomy, Orthopedic Respiratory Hx Respiratory Disorders: Yes Respiratory Disorders: Pulmonary Embolism Cardiovascular Hx Cardiac Disorders: Yes (CABG X3 VESSELS, CHF) Cardiac Disorders: Chronic Edema/Swelling, Coronary Artery Disease, Deep Vein Thrombosis, Heart Attack, High Cholesterol, Hypertension Neurological Hx Neurological Disorders: Yes (CVA-RIGHT SIDE WEAKNESS AND EXPRESSIVE APHASIA) Neurological Disorders: Stroke 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 System Hx 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 Disorders: Yes (HYST) Sexually Transmitted Disease: No HIV/AIDS: No Female 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 Disorders: 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, 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 Genitourinary Hx Genitourinary Disorders: Yes (RENAL INSUFFICIENCY ) Genitourinary Disorders: Renal Failure Gastrointestinal Hx Gastrointestinal Disorders: Yes Gastrointestinal Disorders: Gastroesophageal Reflux, Chronic Constipation Musculoskeletal Hx Musculoskeletal Disorders: Yes (FALLS) Musculoskeletal Disorders: Degenerate Disk Disease, Arthritis, Chronic Back Pain Endocrine Hx Endocrine Disorders: Yes Endocrine Disorders: Hypothyroidsim, Diabetes, Non-Insulin dep HEENT HX ENT Disorders: Yes (LEFT EYE CATARACT REMOVAL) HEENT Disorders: Cataract Loss of Vision: Denies Hearing Impairment: Hard of Hearing Cancer Hx Cancer: Yes Cancer: Melanoma Psychosocial Hx Psychiatric Problems: Yes Behavioral Health Disorders: Sleep Difficulties, Anxiety, Depression Integumentary HX Skin/Integumentary Disorder: No Skin/Integumentary Disorders: Psoriasis Blood Transfusions Hx Blood Disorders: Yes (PE) Adverse Reaction to a Blood Tr: Yes (fever) Family Medical History Significant Family History: Heart Disease, Diabetes, Hypertension Family Medial History: Diabetes mellitus 19 MOTHER FH: cirrhosis G8 SISTER Myocardial infarction 19 FATHER 19 MOTHER G8 BROTHER G8 BROTHER G8 BROTHER G8 BROTHER G8 BROTHER G8 SISTER Physical Exam Vital Signs Vital Sign - Last 12Hours 08/26/16 10:58 Temp 98.2 Pulse 78 Resp 18 B/P 125/53 Pulse Ox 97 Capillary Refill : Less Than 3 Seconds General Appearance: no apparent distress HEENT: normal ENT inspection Neck: full range of motion Cardiovascular: normal peripheral pulses regular rate, rhythm no edema no gallop no JVD no murmur Respiratory: chest non-tender lungs clear normal breath sounds no respiratory distress no accessory muscle use respiratory distress Gastrointestinal: normal bowel sounds non tender soft no organomegaly no pulsatile mass abnormal bowel sounds Back: normal inspection no CVA tenderness no vertebral tenderness Extremities: normal range of motion non-tender normal inspection no calf tenderness normal capillary refill pedal edema (1+ bilateral edema at the malleoli) 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 no motor/sensory deficits alert normal mood/affect oriented x 3 Skin: normal color warm/dry Lymphatic: no adenopathy Comments There is bilateral 1+ pedal edema at the malleolus Progress/Results/Core Measures Results/Orders Lab Results Laboratory Tests Test 08/26/16 11:38 08/26/16 11:48 Range/Units Alanine Aminotransferase (ALT/SGPT) 20 0-55 U/L Albumin 3.4 3.2-4.5 G/DL Alkaline Phosphatase 69 40-136 U/L Anion Gap 10 5-14 MMOL/L Aspartate Amino Transf (AST/SGOT) 23 5-34 U/L B-Type Natriuretic Peptide 478.2 H <100.0 PG/ML BUN/Creatinine Ratio 11 Basophils # (Auto) 0.0 0.0-0.1 10^3/uL Basophils (%) (Auto) 1 0-10 % Blood Urea Nitrogen 13 7-18 MG/DL Calcium Level 8.6 8.5-10.1 MG/DL Carbon Dioxide Level 27 21-32 MMOL/L Chloride Level 105 98-107 MMOL/L Creatinine 1.16 0.60-1.30 MG/DL Eosinophils # (Auto) 0.1 0.0-0.3 10^3/uL Eosinophils (%) (Auto) 4 0-10 % Estimat Glomerular Filtration Rate 45 Glucose Level 174 H 70-105 MG/DL Hematocrit 35 35-52 % Hemoglobin 11.5 11.5-16.0 G/DL Lymphocytes # (Auto) 0.8 L 1.0-4.0 X 10^3 Lymphocytes (%) (Auto) 29 12-44 % Mean Corpuscular Hemoglobin 33 25-34 PG Mean Corpuscular Hemoglobin Concent 33 32-36 G/DL Mean Corpuscular Volume 100 H 80-99 FL Mean Platelet Volume 10.1 7.4-10.4 FL Monocytes # (Auto) 0.4 0.0-1.0 X 10^3 Monocytes (%) (Auto) 14 H 0-12 % Neutrophils # (Auto) 1.5 L 1.8-7.8 X 10^3 Neutrophils (%) (Auto) 52 42-75 % Platelet Count 134 130-400 10^3/uL Potassium Level 3.6 3.6-5.0 MMOL/L Red Blood Count 3.51 L 4.35-5.85 10^6/uL Red Cell Distribution Width 14.5 10.0-14.5 % Sodium Level 142 135-145 MMOL/L Total Bilirubin 0.3 0.1-1.0 MG/DL Total Protein 5.5 L 6.4-8.2 G/DL Troponin I 0.42 *H <0.30 NG/ML White Blood Count 2.9 L 4.3-11.0 10^3/uL Urine Bacteria NEGATIVE /HPF Urine Bilirubin NEGATIVE NEGATIVE Urine Casts NONE /LPF Urine Clarity CLEAR Urine Color YELLOW Urine Crystals NONE /LPF Urine Culture Indicated NO Urine Glucose (UA) NEGATIVE NEGATIVE Urine Ketones NEGATIVE NEGATIVE Urine Leukocyte Esterase NEGATIVE NEGATIVE Urine Mucus NEGATIVE /LPF Urine Nitrite NEGATIVE NEGATIVE Urine Protein NEGATIVE NEGATIVE Urine RBC NONE /HPF Urine RBC (Auto) NEGATIVE NEGATIVE Urine Specific [place] 1.010 L 1.016-1.022 Urine Squamous Epithelial Cells 2-5 /HPF Urine Urobilinogen NORMAL NORMAL MG/DL Urine WBC NONE /HPF Urine pH 6.5 5-9 My Orders Orders-JAZ ELIZONDO MD Cbc With Automated Diff (08/26/16 11:32) Comprehensive Metabolic Panel (08/26/16 11:32) Ua Culture If Indicated (08/26/16 11:32) Ns Iv 1000 Ml (Sodium Chloride 0.9%) (08/26/16 12:45) BNP (08/26/16 13:15) Troponin I (08/26/16 13:15) Vital Signs/I&O Vital Sign - Last 12Hours 08/26/16 10:58 Temp 98.2 Pulse 78 Resp 18 B/P 125/53 Pulse Ox 97 Blood Pressure Mean: 77 Departure Communication Progress Notes After the IV fluids had been infused, the daughter reported that the mother and had a short spell of chest pain this morning relieved by nitroglycerin. Given her events in May and July she requested a troponin and BNP. These returned at 0.42 and 478 respectively. In looking at the July records on 07/22 her BNP was 721 and reginaldo as high as 941 on her troponin was 0.9 and reginaldo as high as 9.4. The patient has now urinated in her diapers feels like she needs to go the bathroom again which was the intent of the IV fluids. Is also there wished to go home at this time. Impression Impression: Primary Impression: dehydration/oliguria Additional Impression: history of multiple SC and congestive heart failure Disposition: HOME, SELF-CARE Condition: Stable/Unchanged Departure-Patient Inst. Decision time for Depature: 14:11 Referrals: OUSMANE LONG DO (PCP/Family) Primary Care Physician Add. Discharge Instructions: All discharge instructions reviewed with patient and/or family. Voiced understanding. If further chest pain or development of the shortness of breath return to ER. Encourage fluid intake. JAZ ELIZONDO MD Aug 26, 2016 12:12
[2016-08-26] MEDS ORDERED: NS IV 1000 ML 1,000 ML IV SCH (12:45)
[2016-08-26 14:29] VITALS: BP 130/62
== END 2016-08-26 14:29 | disposition home or self-care (01) ==
LOC: EDUNIT# 10:08 → ER 10:10
DX: E86.0 Dehydration (principal); I10 Essential (primary) hypertension; E11.9 Type 2 diabetes mellitus without complications; I69.920 Aphasia following unspecified cerebrovascular disease; I69.951 Hemiplegia and hemiparesis following unspecified cerebrovascular disease affecting right dominant side; I25.2 Old myocardial infarction; Z79.82 Long term (current) use of aspirin; Z79.84 Long term (current) use of oral hypoglycemic drugs; Z79.899 Other long term (current) drug therapy; Z79.01 Long term (current) use of anticoagulants; Z95.1 Presence of aortocoronary bypass graft
CPT/HCPCS: 36415; 51701; 80053; 81000; 83880; 84484; 85025; 96360

== ENCOUNTER 2016-08-27 17:48 | Inpatient (IN) | payer MEDICARE ==
[~2016-08-27] VITALS: Ht 157.5 cm; Wt 68.7 kg
--- OUTSIDE RECORDS SUMMARY | 2016-08-27 17:58 | XMS REPORT | Continuity of Care Document ---
Author Author [facility] Organization [facility] Address Unknown Phone Unavailable Care Team Providers Care Ada Accommodation Consultant Name Role Phone OUSMANE LONG DO PCP Insurance Providers Payer Name Policy Number Subscriber Name Relationship Wps Medicare [id number] Lupe Verde 19 Self / Same As Patient Blue Cross [facility] [place] Supp [id number] Lupe Verde 18 Self / Same As Patient Advance Directives Directive Response Recorded Date/Time Advance Directives No 04/27/16 7:00am Health Care Power of [id number] Administrator Maximino Valle, Daughter 04/27/16 7:00am Organ Donor [...] 1 Tab Oral Bedtime 2MG/25MG TABLET 03/23/14 [place]-3/Dha/Epa/Fish Oil 1,000 Mg 1,200 Mg Oral Daily [...] Tablet, 04/24/09 Discontinued [Thyroid] , 04/24/09 Discontinued [place]-3 Fatty Acids/Fish Oil 1 Each Capsule, 07/25/09 [...] Tab.sr.24h, 8 Mg Oral Daily 11/11/12 Discontinued [place]-3/Dha/Epa/Fish Oil 1 Each Capsule.dr, 1000 Mg Oral [...] Tab, 0 Mg Oral Daily 12/18/13 Discontinued [place]-3/Dha/Epa/Fish Oil 1,200 Mg Capsule, 1200 Mg Oral Daily 03/23/14 Discontinued Phenytoin Sodium 100 Mg Cap, 100 Mg Oral Three Times A Day 03/26/14 Discontinued [place]-3/Dha/Epa/Fish Oil 1 Each Capsule, 1000 Mg Oral [...] Type Severity Reaction Status Last Updated Penicillins ([id number]) Allergy Unknown Active 03/24/07 Sulfa (Sulfonamide Antibiotics) ([id number]) Allergy Unknown Active 04/27 Immunizations No immunization records. Vital Signs Acute Vital Signs Vital Response Date/Time Temperature (Fahrenheit) 98.1 degrees F (97.6 - 99.5) 04/27/2016 7:00am Temperature (Calculated Celsius) 36.28151 degrees C (36.4 - 37.5) 04/27/2016 7:00am [...] 2 inches 04/27/2016 7:00am Height (Calculated Centimeters) 157.503636 cm 04/27/2016 7:00am Weight (Pounds) 145 pounds 04/27/2016 7:00am Weight (Ounces) 0.0 oz 04/27/2016 7:00am Weight (Calculated Grams) 43939.894 gm 04/27/2016 7:00am Weight (Calculated Kilograms) 65.740918 kilograms 04/27/2016 7:00am Calculated BMI 26.52 04/27/2016 [...] Date Attending Provider Departed Emergency Room [facility] 04/27/16 6:50am 04/27 11:42am CORINE DE LA PAZ MD Recent Diagnosis
--- NOTE | 2016-08-27 18:26 | ED GU-Female ---
General Chief Complaint: -Female Stated Complaint: UNABLE TO URINATE Source: patient, family, RN notes reviewed Exam Limitations: language barrier (essentially aphasic), physical impairment ( s/p CVA) History of Present Illness Time seen by provider: 18:24 Initial Comments Here yesterday for the same. Apparently evaluated (nothing acute), given IVF, and urinated. This is apparently a new problem. Patient is s/p CVA and basically aphasic. Timing/Duration: yesterday Severity/Quality: other (no known pain) Activities at Onset: none Prior Genitourinary Problems: none Sexual Nadine History: not active Modifying Factors: Improves With Other (none) Associated Symptoms: swelling (BLE) Allergies and Home Medications Allergies Coded Allergies: Penicillins (Verified Allergy, Unknown, 08/26/16) Sulfa (Sulfonamide Antibiotics) (Unverified Allergy, Unknown, 03/24/14) Home Medications Acetaminophen 500 Mg Tablet 500 MG PO Q6H PRN PRN PAIN (Reported) Alprazolam 0.25 Mg Tablet 0.25 MG PO BID (Reported) Apixaban 5 Mg Tablet 5 MG PO BID (Reported) Aspirin 81 Mg Tablet.dr 81 MG PO DAILY (Reported) Atorvastatin Calcium 40 Mg Tablet 40 MG PO HS (Reported) Cholecalciferol 1,000 Unit Tablet 1,000 UNIT PO DAILY (Reported) Desvenlafaxine Succinate 50 Mg Tab.sr.24h 50 MG PO DAILY (Reported) Fesoterodine Fumarate 4 Mg Tab.sr.24h 4 MG PO DAILY (Reported) Furosemide 40 Mg Tablet 40 MG PO DAILY (Reported) Isosorbide Mononitrate 30 Mg Tab.er.24h 30 MG PO DAILY (Reported) Levothyroxine Sodium 25 Mcg Tablet 25 MCG PO DAILY (Reported) Metoprolol Succinate 25 Mg Tab.er.24h 12.5 MG PO DAILY (Reported) TAKES 1/2 OF A (25 MG) TABLET [place]-3/Dha/Epa/Fish Oil 1 Each Capsule 1,000 MG PO DAILY (Reported) Pantoprazole Sodium 40 Mg Tablet.dr 40 MG PO DAILY (Reported) Perphenazine/Amitriptyline HCl 1 Each Tablet 1 TAB PO HS (Reported) Phenytoin Sodium Extended 100 Mg Capsule 100 MG PO BID (Reported) Potassium Chloride 20 Meq Tab.er.prt 20 MEQ PO DAILY (Reported) Sacubitril/Valsartan 1 Each Tablet 1 TAB PO BID (Reported) Sitagliptin Phosphate 50 Mg Tablet 50 MG PO DAILY (Reported) Spironolactone 25 Mg Tablet 25 MG PO DAILY (Reported) Constitutional: see HPI (patient s/p CVA; aphasic; unable to give hx; family reports urinary retention and increasing peripheral edema)No fever : No Past Ltbhdoh-Fijgbv-Jwowme Hx Patient Social History 2nd Hand Smoke Exposure: No Recent Foreign Travel: No Contact w/Someone Who Travel: No Recent Hopitalizations: Yes (Jul) Immunizations Up To Date Tetanus Booster (TDap): Unknown Date of Pneumonia Vaccine: Apr 17, 2010 Date of Influenza Vaccine: Sep 06, 2014 Seasonal Allergies Seasonal Allergies: No Surgeries HX Surgeries: Yes Surgeries: Abdominal, Cardiac, CABG, Eye Surgery, Hysterectomy, Joint Replacement, Oophorectomy, Orthopedic Respiratory Hx Respiratory Disorders: Yes Respiratory Disorders: Pulmonary Embolism Cardiovascular Hx Cardiac Disorders: Yes (CABG X3 VESSELS, CHF) Cardiac Disorders: Chronic Edema/Swelling, Coronary Artery Disease, Deep Vein Thrombosis, Heart Attack, High Cholesterol, Hypertension Neurological Hx Neurological Disorders: Yes (CVA-RIGHT SIDE WEAKNESS AND EXPRESSIVE APHASIA) Neurological Disorders: Stroke 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 System Hx 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 Disorders: Yes (HYST) Sexually Transmitted Disease: No HIV/AIDS: No Female 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 Disorders: 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, 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 Genitourinary Hx Genitourinary Disorders: Yes (RENAL INSUFFICIENCY ) Genitourinary Disorders: Renal Failure Gastrointestinal Hx Gastrointestinal Disorders: Yes Gastrointestinal Disorders: Gastroesophageal Reflux, Chronic Constipation Musculoskeletal Hx Musculoskeletal Disorders: Yes (FALLS) Musculoskeletal Disorders: Degenerate Disk Disease, Arthritis, Chronic Back Pain Endocrine Hx Endocrine Disorders: Yes Endocrine Disorders: Hypothyroidsim, Diabetes, Non-Insulin dep HEENT HX ENT Disorders: Yes (LEFT EYE CATARACT REMOVAL) HEENT Disorders: Cataract Loss of Vision: Denies Hearing Impairment: Hard of Hearing Cancer Hx Cancer: Yes Cancer: Melanoma Psychosocial Hx Psychiatric Problems: Yes Behavioral Health Disorders: Sleep Difficulties, Anxiety, Depression Integumentary HX Skin/Integumentary Disorder: No Skin/Integumentary Disorders: Psoriasis Blood Transfusions Hx Blood Disorders: Yes (PE) Adverse Reaction to a Blood Tr: Yes (fever) Family Medical History Significant Family History: Heart Disease, Diabetes, Hypertension Family Medial History: Diabetes mellitus 19 MOTHER FH: cirrhosis G8 SISTER Myocardial infarction 19 FATHER 19 MOTHER G8 BROTHER G8 BROTHER G8 BROTHER G8 BROTHER G8 BROTHER G8 SISTER Physical Exam Vital Signs Vital Sign - Last 12Hours 08/27/16 18:10 Temp 98.2 Pulse 88 Resp 16 B/P 137/65 Pulse Ox 97 O2 Delivery Nasal Cannula O2 Flow Rate 2 Capillary Refill : General Appearance: WD/WN no apparent distress (although seems a little anxious) Cardiovascular: regular rate, rhythm Respiratory: no respiratory distress Gastrointestinal: non tender soft Rectal: deferred Extremities: pedal edema Neurologic/Psychiatric: alert other (old CVA/ left side weakness and aphasic) Skin: warm/dry Progress/Results/Core Measures Results/Orders Lab Results Laboratory Tests Test 08/27/16 18:35 08/28/16 04:12 Range/Units Alanine Aminotransferase (ALT/SGPT) 24 0-55 U/L Albumin 3.6 3.2-4.5 G/DL Alkaline Phosphatase 69 40-136 U/L Anion Gap 13 12 5-14 MMOL/L Aspartate Amino Transf (AST/SGOT) 27 5-34 U/L B-Type Natriuretic Peptide 500.8 H 544.8 H <100.0 PG/ML BUN/Creatinine Ratio 11 12 Basophils # (Auto) 0.0 0.0 0.0-0.1 10^3/uL Basophils (%) (Auto) 1 0 0-10 % Blood Urea Nitrogen 13 13 7-18 MG/DL Calcium Level 8.8 8.7 8.5-10.1 MG/DL Carbon Dioxide Level 25 26 21-32 MMOL/L Chloride Level 107 106 98-107 MMOL/L Creatinine 1.14 1.06 0.60-1.30 MG/DL Eosinophils # (Auto) 0.1 0.1 0.0-0.3 10^3/uL Eosinophils (%) (Auto) 4 2 0-10 % Estimat Glomerular Filtration Rate 45 49 Glucose Level 99 116 H 70-105 MG/DL Hematocrit 36 34 L 35-52 % Hemoglobin 11.7 11.4 L 11.5-16.0 G/DL Lymphocytes # (Auto) 1.1 1.1 1.0-4.0 X 10^3 Lymphocytes (%) (Auto) 33 22 12-44 % Mean Corpuscular Hemoglobin 33 33 25-34 PG Mean Corpuscular Hemoglobin Concent 33 33 32-36 G/DL Mean Corpuscular Volume 99 99 80-99 FL Mean Platelet Volume 10.9 H 11.1 H 7.4-10.4 FL Monocytes # (Auto) 0.5 0.5 0.0-1.0 X 10^3 Monocytes (%) (Auto) 14 H 11 0-12 % Neutrophils # (Auto) 1.7 L 3.1 1.8-7.8 X 10^3 Neutrophils (%) (Auto) 48 65 42-75 % Platelet Count 141 122 L 130-400 10^3/uL Potassium Level 3.5 L 3.0 L 3.6-5.0 MMOL/L Red Blood Count 3.58 L 3.46 L 4.35-5.85 10^6/uL Red Cell Distribution Width 14.5 14.4 10.0-14.5 % Sodium Level 145 144 135-145 MMOL/L Total Bilirubin 0.4 0.1-1.0 MG/DL Total Protein 5.9 L 6.4-8.2 G/DL Troponin I 0.40 *H <0.30 NG/ML White Blood Count 3.4 L 4.8 4.3-11.0 10^3/uL My Orders Orders-ANNIKA SUTHERLAND DO Bladder Scan (08/27/16 18:57) BNP (08/27/16 18:57) Troponin I (08/27/16 19:15) Chest 1 View, Ap/Pa Only (08/27/16 19:21) Cbc With Automated Diff (08/27/16 19:22) Comprehensive Metabolic Panel (08/27/16 18:35) Ct Abdomen/Pelvis Wo (08/27/16 20:31) Saline Lock/Iv-Start (08/27/16 20:51) Foster Cath Insertion (08/27/16 20:51) Vital Signs/I&O Vital Sign - Last 12Hours 08/28/16 08/28/16 08/28/16 08:00 12:00 16:00 Temp 98.0 97.7 98.5 Pulse 74 76 63 Resp 20 18 16 B/P 136/63 145/67 135/68 Pulse Ox 95 96 98 O2 Delivery Room Air Room Air Room Air Progress Note : Progress Note RN placed foster and got approximately 300 ml of clean appearing urine back. Foster will be left in. Diagnostic Imaging Diagonstic Imaging: Xray, CT Plain Films/CT/US/NM/MRI: chest (nothing acute per radiology), abdomen, pelvis (nothing acute) Departure Communication Time/Spoke to Admitting Phy: 20:50 Impression Impression: Primary Impression: Urinary retention Additional Impressions: Anxiety History of CHF (congestive heart failure) Disposition: ADMITTED INPATIENT Condition: Stable (ERASED) Decision to Admit Reason: Admit from ER (General) Decision to Admit/Date: Aug 27, 2016 Time/Decision to Admit Time: 20:50 Departure-Patient Inst. Referrals: OUSMANE LONG DO (PCP/Family) Primary Care Physician ANNIKA SUTHERLAND DO Aug 27, 2016 18:26
[2016-08-27 19:14] LABS: CALCIUM 8.8 MG/DL (8.5-10.1); CREATININE SERUM 1.14 MG/DL (0.60-1.30); POTASSIUM 3.5 MMOL/L (3.6-5.0)
[2016-08-27 19:26] LABS: BASOPHILS % (AUTO) 1 % (0-10); EOSINOPHILS # (AUTO) 0.1 10^3/uL (0.0-0.3); EOSINOPHILS % (AUTO) 4 % (0-10); LYMPHOCYTES # (AUTO) 1.1 X 10^3 (1.0-4.0); LYMPHOCYTES % (AUTO) 33 % (12-44); MEAN CORPUSCULAR HEMOGLOBIN 33 PG (25-34); MEAN CORPUSCULAR HGB CONC 33 G/DL (32-36); MEAN CORPUSCULAR VOLUME 99 FL (80-99); MEAN PLATELET VOLUME 10.9 FL (7.4-10.4); MONOCYTES # (AUTO) 0.5 X 10^3 (0.0-1.0); MONOCYTES % (AUTO) 14 % (0-12); NEUTROPHILS # (AUTO) 1.7 X 10^3 (1.8-7.8); NEUTROPHILS % (AUTO) 48 % (42-75); PLATELET COUNT 141 10^3/uL (130-400); RED BLOOD COUNT 3.58 10^6/uL (4.35-5.85); RED CELL DISTRIBUTION WIDTH 14.5 % (10.0-14.5); WHITE BLOOD COUNT 3.4 10^3/uL (4.3-11.0)
[2016-08-27 19:43] LABS: ALBUMIN 3.6 G/DL (3.2-4.5); BILIRUBIN,TOTAL 0.4 MG/DL (0.1-1.0); TOTAL PROTEIN 5.9 G/DL (6.4-8.2)
--- NOTE | 2016-08-27 19:46 | Diagnostic Imaging Report ---
INDICATION: Swelling of the feet, dysuria COMPARISON: 07/23/16 FINDINGS: Single view of the chest demonstrates stable cardiac enlargement without pulmonary edema, effusion or infiltrate. There is no pneumothorax. Sternal wires are midline. IMPRESSION: Cardiac enlargement without pulmonary edema or infiltrate. Dictated by: Dictated on workstation # [id number]
--- NOTE | 2016-08-27 21:10 | Diagnostic Imaging Report ---
PROCEDURE: CT abdomen and pelvis without contrast. TECHNIQUE: Multiple contiguous axial images were obtained through the abdomen and pelvis without the use of intravenous contrast. INDICATION: Feet swelling, unable to urinate, dysuria, abdominal pain COMPARISON: None FINDINGS: Small effusion with atelectasis seen in the right base. Left lung is clear. Heart is enlarged without pericardial effusion. The liver, gallbladder, spleen, pancreas, adrenal glands, and kidneys are unremarkable. There is a Lopez catheter within the urinary bladder which is nondistended. There is diverticulosis of the sigmoid colon without diverticulitis. There is some mild constipation in the proximal colon. No obstruction or ileus is seen. There is no inflammation. The osseous structures are age-appropriate. IMPRESSION: 1. Mild proximal colonic constipation without obstruction or ileus. 2. Small effusion with dependent atelectasis right base. 3. No hydronephrosis or renal calculi. 4. Lopez catheter within the urinary bladder. If symptoms do not improve, consider contrast imaging. Dictated by: Dictated on workstation # [id number]
[2016-08-27] MEDS ORDERED: FUROSEMIDE 40 MG/4 ML INJ (LASIX) IV ONE (22:30)
[2016-08-27 23:10] VITALS: BP 154/70
[2016-08-28 04:00] VITALS: BP 142/65
[2016-08-28 04:57] LABS: BASOPHILS % (AUTO) 0 % (0-10); EOSINOPHILS # (AUTO) 0.1 10^3/uL (0.0-0.3); EOSINOPHILS % (AUTO) 2 % (0-10); LYMPHOCYTES # (AUTO) 1.1 X 10^3 (1.0-4.0); LYMPHOCYTES % (AUTO) 22 % (12-44); MEAN CORPUSCULAR HEMOGLOBIN 33 PG (25-34); MEAN CORPUSCULAR HGB CONC 33 G/DL (32-36); MEAN CORPUSCULAR VOLUME 99 FL (80-99); MEAN PLATELET VOLUME 11.1 FL (7.4-10.4); MONOCYTES # (AUTO) 0.5 X 10^3 (0.0-1.0); MONOCYTES % (AUTO) 11 % (0-12); NEUTROPHILS # (AUTO) 3.1 X 10^3 (1.8-7.8); NEUTROPHILS % (AUTO) 65 % (42-75); PLATELET COUNT 122 10^3/uL (130-400); RED BLOOD COUNT 3.46 10^6/uL (4.35-5.85); RED CELL DISTRIBUTION WIDTH 14.4 % (10.0-14.5); WHITE BLOOD COUNT 4.8 10^3/uL (4.3-11.0)
[2016-08-28 05:11] LABS: CALCIUM 8.7 MG/DL (8.5-10.1); CREATININE SERUM 1.06 MG/DL (0.60-1.30)
[2016-08-28] MEDS ORDERED: FLU TRIvalent (5 YOA+) 2016-17 (AFLURIA) 0.5 ML IM ONE (07:00)
--- NOTE | 2016-08-28 07:29 | History & Physicial ---
History of Present Illness History of Present Illness Reason for visit/HPI patient has been out to the emergency room twice for urinary retention. Patient lives alone now. Patient previously had a stroke and unable to talk. Patient has history of coronary artery disease, and angina, CHF. Patient is frightened and anxious by living alone Date of Admission Aug 27, 2016 at 21:05 I consulted on this patient on 08/28/16 07:24 Attending Physician Ousmane Long DO Admitting Physician Ousmane Long DO Consult Allergies and Home Medications Allergies Coded Allergies: Penicillins (Verified Allergy, Unknown, 08/26/16) Sulfa (Sulfonamide Antibiotics) (Unverified Allergy, Unknown, 03/24/14) Home Medications Acetaminophen 500 Mg Tablet 500 MG PO Q6H PRN PRN PAIN (Reported) Alprazolam 0.25 Mg Tablet 30Days 0.25 MG PO BID Prescribed by: JO ANN VIZCARRA on 07/26/16 1155 Apixaban 5 Mg Tablet #60 5 MG PO BID Prescribed by: JS HERRERA on 07/06/16 0853 Aspirin 81 Mg Tab.chew #0 81 MG PO DAILY@0900 OVER THE COUNTER Prescribed by: JS HERRERA on 07/06/16 0845 Atorvastatin Calcium 40 Mg Tablet 40 MG PO HS (Reported) Cholecalciferol 1,000 Unit Tablet 1,000 UNIT PO DAILY (Reported) Desvenlafaxine Succinate 50 Mg Tab.sr.24h 50 MG PO DAILY (Reported) Fesoterodine Fumarate 4 Mg Tab.sr.24h 4 MG PO DAILY (Reported) Furosemide 40 Mg Tablet #30 40 MG PO DAILY Prescribed by: JS HERRERA on 07/06/16 0853 Levothyroxine Sodium 25 Mcg Tablet 25 MCG PO DAILY (Reported) Metoprolol Succinate 25 Mg Tab.er.24h #30 25 MG PO DAILY Prescribed by: JS HERRERA on 07/06/16 0853 [place]-3/Dha/Epa/Fish Oil 1 Each Capsule 1,000 MG PO DAILY (Reported) Pantoprazole Sodium 40 Mg Tablet.dr 40 MG PO DAILY (Reported) Perphenazine/Amitriptyline HCl 1 Each Tablet 1 TAB PO HS (Reported) Phenytoin Sodium Extended 100 Mg Capsule 100 MG PO BID (Reported) Potassium Chloride 20 Meq Tablet.er 20 MEQ PO DAILY (Reported) Sacubitril/Valsartan 1 Each Tablet #60 1 EACH PO BID Prescribed by: MILLER HYDE on 07/23/16 0854 Sitagliptin Phosphate 50 Mg Tablet 50 MG PO DAILY (Reported) Spironolactone 25 Mg Tablet #30 25 MG PO DAILY Prescribed by: JS HERRERA on 07/06/16 0853 Past Nuudidm-Teqbyd-Suewkm Hx Patient Social History Marrital Status: Employed/Student: unemployed Alcohol Use: Denies Use Recreational Drug Use: No Smoking Status: Never a Smoker 2nd Hand Smoke Exposure: No Physical Abuse Screen: No Sexual Abuse: No Recent Foreign Travel: No Contact w/other who traveled: No Recent Hopitalizations: Yes (Jul) Recent Infectious Disease Expo: No Immunizations Up To Date Tetanus Booster (TDap): Unknown Date of Pneumonia Vaccine: Apr 17, 2010 Date of Influenza Vaccine: Sep 06, 2014 Seasonal Allergies Seasonal Allergies: No Surgeries HX Surgeries: Yes Surgeries: Abdominal, Cardiac, CABG, Eye Surgery, Hysterectomy, Joint Replacement, Oophorectomy, Orthopedic Respiratory Hx Respiratory Disorders: Yes Cardiovascular Hx Cardiovascular Disorders: Yes (CABG X3 VESSELS, CHF) Cardiac Disorders: Chronic Edema/Swelling, Coronary Artery Disease, Deep Vein Thrombosis, Heart Attack, High Cholesterol, Hypertension Neurological Hx Neurological Disorders: Yes (CVA-RIGHT SIDE WEAKNESS AND EXPRESSIVE APHASIA) Neurological Disorders: Stroke 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 System Hx 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 Disorders: Yes (HYST) Sexually Transmitted Disease: No HIV/AIDS: No Female 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 Disorders: Denies Genitourinary Hx Genitourinary Disorders: Yes (RENAL INSUFFICIENCY ) Genitourinary Disorders: Renal Failure Gastrointestinal Hx Gastrointestinal Disorders: Yes Gastrointestinal Disorders: Gastroesophageal Reflux, Chronic Constipation Musculoskeletal Hx Musculoskeletal Disorders: Yes (FALLS) Musculoskeletal Disorders: Degenerate Disk Disease, Arthritis, Chronic Back Pain Endocrine Hx Endocrine Disorders: Yes Endocrine Disorders: Hypothyroidsim, Diabetes, Non-Insulin dep HEENT HX ENT Disorders: Yes (LEFT EYE CATARACT REMOVAL) HEENT Disorders: Cataract Loss of Vision: Denies Hearing Impairment: Hard of Hearing Cancer Hx Cancer: Yes Cancer: Melanoma Psychosocial Hx Psychiatric Problems: Yes Behavioral Health Disorders: Sleep Difficulties, Anxiety, Depression Integumentary HX Skin/Integumentary Disorder: No Skin/Integumentary Disorders: Psoriasis Blood Transfusions Hx Blood Disorders: Yes (PE) Adverse Reaction to a Blood Tr: Yes (fever) Family Medical History Significant Family History: Heart Disease, Diabetes, Hypertension Family Hx: Diabetes mellitus 19 MOTHER FH: cirrhosis G8 SISTER Myocardial infarction 19 FATHER 19 MOTHER G8 BROTHER G8 BROTHER G8 BROTHER G8 BROTHER G8 BROTHER G8 SISTER Constitutional: weakness EENTM: no symptoms reported Respiratory: no symptoms reported Gastrointestinal: no symptoms reported Genitourinary: other (urinary retention) Physical Exam Vital Signs Vital Sign - Last 12Hours 08/27/16 18:10 Temp 98.2 Pulse 88 Resp 16 B/P 137/65 Pulse Ox 97 O2 Delivery Nasal Cannula O2 Flow Rate 2 Capillary Refill : Less Than 3 Seconds General Appearance: No Apparent Distress WD/WN Eyes: Bilateral Eye Normal Inspection HEENT: Normal ENT Inspection Neck: Full Range of Motion Normal Inspection Respiratory: Chest Non Tender Lungs Clear Normal Breath Sounds No Accessory Muscle Use No Respiratory Distress Cardiovascular: Regular Rate, Rhythm No Murmur Gastrointestinal: Non Tender Soft Assessment/Plan Assessment and Plan urinary retention. Coronary artery disease. Angina history. Diabetes. Anxiety. Frightened. Clinical Quality Measures DVT/VTE Risk/Contraindication: Risk Factor Score Per Nursin RFS Level Per Nursing on Admit: 4+=Very High OUSMANE LONG DO Aug 28, 2016 07:29
[2016-08-28 08:00] VITALS: BP 136/63
[2016-08-28] MEDS ORDERED: ISOS30TA3 PO (09:59)
[2016-08-28] MEDS ORDERED: FURO40TA4 PO (09:59)
[2016-08-28] MEDS ORDERED: POTA20TA15 PO (09:59)
[2016-08-28] MEDS ORDERED: FESO4TAB PO (09:59)
[2016-08-28] MEDS ORDERED: SITA50TA PO (10:02)
[2016-08-28] MEDS ORDERED: ASPI-983 PO (10:02)
[2016-08-28] MEDS ORDERED: METO-270 PO (10:02)
[2016-08-28] MEDS ORDERED: APIX5TAB PO (10:02)
[2016-08-28] MEDS ORDERED: SPIR25TA3 PO (10:02)
[2016-08-28] MEDS ORDERED: DESV50TA PO (10:02)
[2016-08-28] MEDS ORDERED: SACU1TAB PO (10:02)
[2016-08-28] MEDS ORDERED: ALPR0.254 PO (10:04)
--- NOTE | 2016-08-28 11:11 | CONSULTATION REPORT ---
DATE OF CONSULTATION: 08/28/2016 ATTENDING PHYSICIAN: Dr. Pedroza. SUMMARY: After reviewing the patient's record most of which are pending information; the patient had a previous stroke. She is not a good historian and cannot speak well at all. Apparently the patient was admitted through the emergency room with urinary retention second visit to the ER. The patient has history of coronary artery disease, diabetes, and anxiety. Medications were reviewed. She has not had any surgery on her bladder before. IMPRESSION: Urinary retention, probably neurogenic bladder. PLAN: Start her on urecholine 25 mg q.i.d. with meals and at bedtime and manage accordingly. Tomorrow, probably we will give her a trial of voiding. Job ID: [id number] Dictated Date: 08/28/2016 10:37:13 Clinical Safety Specialist Date: 08/28/2016 11:08:24/louise
[2016-08-28] MEDS: BETHANECHOL 25 MG (URECHOLINE) TAB PO SCH ×3 (11:15→20:15)
[2016-08-28 12:00] VITALS: BP 145/67
[2016-08-28] MEDS ORDERED: ACETAMINOPHEN 500 MG TAB (TYLENOL) PO PRN (12:00)
[2016-08-28] MEDS: OMEGA 3 (FISH OIL) 1000 MG CAP PO SCH (12:12)
[2016-08-28 16:00] VITALS: BP 135/68
[2016-08-28 20:05] VITALS: BP 140/63
[2016-08-28] MEDS: PERPHENAZINE 2 MG (TRILAFON) TAB PO SCH (20:14)
[2016-08-28] MEDS: APIXABAN 5 MG (ELIQUIS) TABLET PO SCH (20:15)
[2016-08-28] MEDS: SACUBITRIL/VALSARTAN 24/26 MG (ENTRESTO) TABLET PO SCH (20:15)
[2016-08-28] MEDS: ALPRAZolam 0.25 MG (XANAX) TAB PO SCH (20:15)
[2016-08-28] MEDS: PHENYTOIN 100 MG (DILANTIN) CAP PO SCH (20:15)
[2016-08-28] MEDS: ATORVASTATIN 40 MG (LIPITOR) TABLET PO SCH (20:15)
[2016-08-28] MEDS: AMITRIPTYLINE 25 MG (ELAVIL) TAB PO SCH (20:15)
[2016-08-29] VITALS: BP 125/62
[2016-08-29 04:00] VITALS: BP 136/60
[2016-08-29 05:18] LABS: MEAN PLATELET VOLUME 10.6 FL (7.4-10.4); RED BLOOD COUNT 3.54 10^6/uL (4.35-5.85); RED CELL DISTRIBUTION WIDTH 14.4 % (10.0-14.5); WHITE BLOOD COUNT 3.3 10^3/uL (4.3-11.0)
[2016-08-29 05:38] LABS: CALCIUM 8.8 MG/DL (8.5-10.1); CREATININE SERUM 0.93 MG/DL (0.60-1.30); POTASSIUM 2.8 MMOL/L (3.6-5.0)
[2016-08-29] MEDS: BETHANECHOL 25 MG (URECHOLINE) TAB PO SCH ×4 (06:08→22:15)
[2016-08-29] MEDS: VENlafaxine XR 75 MG (EFFEXOR XR) CAP PO SCH (06:08)
--- NOTE | 2016-08-29 07:57 | Progress Note (SOAP) ---
Subjective Subjective/Events-last exam urinary retention. Neurogenic bladder. Hypokalemia. Patient still has Lopez in. According to urology to give a trial today. Hypokalemia potassium 2.8. Patient feeling better Objective Exam Vital Signs Date Time Temp Pulse Resp B/P Pulse Ox O2 Delivery O2 Flow Rate FiO2 08/29/16 04:00 96.5 75 22 136/60 96 Room Air 08/29/16 00:00 98.0 94 20 125/62 97 Room Air 08/28/16 20:05 98.9 79 18 140/63 95 Room Air 08/28/16 16:00 98.5 63 16 135/68 98 Room Air 08/28/16 12:00 97.7 76 18 145/67 96 Room Air 08/28/16 08:00 98.0 74 20 136/63 95 Room Air I & O 08/29/16 07:00 Intake Total 2120 ml Output Total 1725 ml Balance 395 ml Capillary Refill : Less Than 3 Seconds General Appearance: No Apparent Distress WD/WN HEENT: Normal ENT Inspection Neck: Full Range of Motion Normal Inspection Respiratory: Chest Non Tender Lungs Clear Normal Breath Sounds No Accessory Muscle Use No Respiratory Distress Cardiovascular: Regular Rate, Rhythm No Murmur Gastrointestinal: non tender soft Results Lab Laboratory Tests 08/29/16 04:36: Anion Gap 9, BUN/Creatinine Ratio 12, Blood Urea Nitrogen 11, Calcium Level 8.8 , Carbon Dioxide Level 29, Chloride Level 107, Creatinine 0.93, Estimat Glomerular Filtration Rate 57, Glucose Level 94, Hematocrit 35, Hemoglobin 11.7 , Mean Corpuscular Hemoglobin 33, Mean Corpuscular Hemoglobin Concent 33, Mean Corpuscular Volume 99, Mean Platelet Volume 10.6H, Platelet Count 116L, Potassium Level 2.8L, Red Blood Count 3.54L, Red Cell Distribution Width 14.4, Sodium Level 145, White Blood Count 3.3L Assessment/Plan Assessment/Plan Assess & Plan/Chief Complaint urinary retention. Neurogenic positive. Hyperkalemia. Coronary artery disease. Depression. Diabetes Diagnosis/Problems: Clinical Quality Measures DVT/VTE Risk/Contraindication: Risk Factor Score Per Nursin RFS Level Per Nursing on Admit: 4+=Very High Contraindications-Pharm: Other *list below* OUSMANE LONG DO Aug 29, 2016 07:57
[2016-08-29 08:00] VITALS: BP 147/66
[2016-08-29] MEDS ORDERED: KCL 8 MEQ (MICRO K) TABLET PO ONE (08:00)
[2016-08-29] MEDS ORDERED: KCL 10 MEQ TAB (MICRO K) PO NR (08:19)
[2016-08-29] MEDS: PANTOPRAZOLE 40 MG (PROTONIX) TAB PO SCH (08:24)
[2016-08-29] MEDS: SACUBITRIL/VALSARTAN 24/26 MG (ENTRESTO) TABLET PO SCH ×2 (08:24→22:15)
[2016-08-29] MEDS: sitaGLIPtin 50 MG (JANUVIA) TAB PO SCH (08:24)
[2016-08-29] MEDS: LEVOTHYROXINE 25 MCG (LEVOTHROID) TAB PO SCH (08:24)
[2016-08-29] MEDS: OMEGA 3 (FISH OIL) 1000 MG CAP PO SCH (08:25)
[2016-08-29] MEDS: SPIRONOLACTONE 25 MG (ALDACTONE) TAB PO SCH (08:25)
[2016-08-29] MEDS: ALPRAZolam 0.25 MG (XANAX) TAB PO SCH ×2 (08:25→22:15)
[2016-08-29] MEDS: VITAMIN D3 1,000 UNITS (CHOLECALCIFEROL) TABLET PO SCH (08:25)
[2016-08-29] MEDS: PHENYTOIN 100 MG (DILANTIN) CAP PO SCH ×2 (08:25→22:16)
[2016-08-29] MEDS: ASPIRIN E.C. 81 MG (ECOTRIN) TAB PO SCH (08:25)
[2016-08-29] MEDS: ISOSORBIDE MONONITRATE 30 MG (IMDUR) TAB PO SCH (08:25)
[2016-08-29] MEDS: FUROSEMIDE 40 MG (LASIX) TAB PO SCH (08:26)
--- NOTE | 2016-08-29 09:00 | Progress Note-Urology ---
Progress Note-Urology Progress Notes/Assess & Plan Progress/Assessment & Plan DR LONG JUST INFORMED ME THAT THE PATIENT WAS ON TOVIAZ AT HOME BUT HE HELD IT. I RECOMMEND SHE STAYS OFF IT. TOV TODAY Final Diagnosis URINE RETENTION ANGELIQUE BENAVIDES MD Aug 29, 2016 9:00 am
[2016-08-29] MEDS: KCL 20 MEQ TAB (K-DUR) PO SCH (10:43)
[2016-08-29] MEDS: APIXABAN 5 MG (ELIQUIS) TABLET PO SCH ×2 (10:43→22:15)
[2016-08-29 12:00] VITALS: BP 137/61
[2016-08-29] MEDS ORDERED: KCL 20 MEQ TAB (K-DUR) PO NR (12:00)
[2016-08-29 16:00] VITALS: BP 146/67
[2016-08-29 20:00] VITALS: BP 154/70
[2016-08-29] MEDS: PERPHENAZINE 2 MG (TRILAFON) TAB PO SCH (22:15)
[2016-08-29] MEDS: ATORVASTATIN 40 MG (LIPITOR) TABLET PO SCH (22:15)
[2016-08-29] MEDS: AMITRIPTYLINE 25 MG (ELAVIL) TAB PO SCH (22:15)
[2016-08-30] VITALS (12 sets, daily range): BP systolic 114–192; BP diastolic 56–102
[2016-08-30 05:57] LABS: MEAN PLATELET VOLUME 10.4 FL (7.4-10.4); RED BLOOD COUNT 3.81 10^6/uL (4.35-5.85); RED CELL DISTRIBUTION WIDTH 14.3 % (10.0-14.5); WHITE BLOOD COUNT 4.7 10^3/uL (4.3-11.0)
[2016-08-30] MEDS: VENlafaxine XR 75 MG (EFFEXOR XR) CAP PO SCH (06:03)
[2016-08-30] MEDS: BETHANECHOL 25 MG (URECHOLINE) TAB PO SCH ×4 (06:03→20:57)
[2016-08-30 06:23] LABS: CALCIUM 8.9 MG/DL (8.5-10.1); POTASSIUM 3.6 MMOL/L (3.6-5.0)
[2016-08-30] MEDS ORDERED: NITROGLYCERIN SUBLINGUAL 0.4 MG TAB (NITROSTAT) SL ONE (08:19)
[2016-08-30] MEDS: NITROGLYCERIN SUBLINGUAL 0.4 MG TAB (NITROSTAT) SL PRN ×2 (08:21→08:31)
--- NOTE | 2016-08-30 08:25 | Progress Note (SOAP) ---
Subjective Subjective/Events-last exam patient is morning's having chest pain. EKG and troponin normal ordered. Patient given nitroglycerin sublingual. Consult with cardiology. Patient urinary retention resolved Patient has history of coronary artery disease Objective Exam Vital Signs Date Time Temp Pulse Resp B/P Pulse Ox O2 Delivery O2 Flow Rate FiO2 08/30/16 04:00 98.2 80 18 124/59 97 Room Air 08/30/16 00:00 98.3 96 18 123/60 96 Room Air 08/29/16 20:15 Room Air 08/29/16 20:00 98.4 77 16 154/70 98 Room Air 08/29/16 16:00 98.4 77 16 146/67 98 Room Air 08/29/16 12:00 97.5 79 20 137/61 98 Room Air I & O 08/30/16 07:00 Intake Total 1190 ml Output Total 600 ml Balance 590 ml Capillary Refill : Less Than 3 Seconds General Appearance: No Apparent Distress WD/WN HEENT: Normal ENT Inspection Neck: Normal Inspection Respiratory: Chest Non Tender Lungs Clear Normal Breath Sounds No Accessory Muscle Use No Respiratory Distress Cardiovascular: Regular Rate, Rhythm No Murmur Gastrointestinal: non tender soft Results Lab Laboratory Tests 08/30/16 05:40 Laboratory Tests 08/30/16 05:40: Anion Gap 10, BUN/Creatinine Ratio 11, Blood Urea Nitrogen 11, Calcium Level 8.9 , Carbon Dioxide Level 29, Chloride Level 107, Creatinine 1.00, Estimat Glomerular Filtration Rate 53, Glucose Level 96, Hematocrit 38, Hemoglobin 12.6 , Mean Corpuscular Hemoglobin 33, Mean Corpuscular Hemoglobin Concent 33, Mean Corpuscular Volume 99, Mean Platelet Volume 10.4, Platelet Count 130, Potassium Level 3.6, Red Blood Count 3.81L, Red Cell Distribution Width 14.3, Sodium Level 146H, White Blood Count 4.7 Assessment/Plan Assessment/Plan Assess & Plan/Chief Complaint urinary retention. Neurogenic positive. Hyperkalemia. Coronary artery disease. Depression. Diabetes. . 08/30/16. Urinary retention resolved. New-onset chest pain. Consult cardiology. Nitroglycerin given. EKG and troponin ordered Diagnosis/Problems: Clinical Quality Measures DVT/VTE Risk/Contraindication: Risk Factor Score Per Nursin RFS Level Per Nursing on Admit: 4+=Very High Contraindications-Pharm: Other *list below* OUSMANE LONG DO Aug 30, 2016 08:25
[2016-08-30] MEDS: ALPRAZolam 0.25 MG (XANAX) TAB PO SCH ×2 (08:27→20:57)
[2016-08-30] MEDS: PANTOPRAZOLE 40 MG (PROTONIX) TAB PO SCH (08:28)
[2016-08-30] MEDS: ISOSORBIDE MONONITRATE 30 MG (IMDUR) TAB PO SCH (08:28)
[2016-08-30] MEDS: ASPIRIN E.C. 81 MG (ECOTRIN) TAB PO SCH (08:28)
[2016-08-30] MEDS: APIXABAN 5 MG (ELIQUIS) TABLET PO SCH ×2 (08:28→20:57)
[2016-08-30] MEDS: SACUBITRIL/VALSARTAN 24/26 MG (ENTRESTO) TABLET PO SCH ×2 (08:29→20:56)
[2016-08-30] MEDS: LEVOTHYROXINE 25 MCG (LEVOTHROID) TAB PO SCH (08:29)
[2016-08-30] MEDS: OMEGA 3 (FISH OIL) 1000 MG CAP PO SCH (08:29)
[2016-08-30] MEDS: VITAMIN D3 1,000 UNITS (CHOLECALCIFEROL) TABLET PO SCH (08:29)
[2016-08-30] MEDS: KCL 20 MEQ TAB (K-DUR) PO SCH (08:29)
[2016-08-30] MEDS: FUROSEMIDE 40 MG (LASIX) TAB PO SCH (08:29)
[2016-08-30] MEDS: SPIRONOLACTONE 25 MG (ALDACTONE) TAB PO SCH (08:29)
[2016-08-30] MEDS ORDERED: NITROGLYCERIN SUBLINGUAL 0.4 MG TAB (NITROSTAT) SL PRN (08:30)
[2016-08-30] MEDS: PHENYTOIN 100 MG (DILANTIN) CAP PO SCH ×2 (08:30→20:57)
[2016-08-30] MEDS: sitaGLIPtin 50 MG (JANUVIA) TAB PO SCH (08:30)
[2016-08-30] MEDS ORDERED: meTOproloL SUCCINATE 50 MG (TOPROL XL) TAB PO NR (10:00)
--- NOTE | 2016-08-30 10:01 | Consultation-Cardiology ---
HPI-Cardiology Cardiology Consultation: Date of Consultation 08/30/16 Date of Admission 08/28/16 Attending Physician Rian Pedroza DO Admitting Physician Rian Pedroza DO Consulting Physician HATTIE BROWNING MD, FACP, FACC, [facility] [place], CCDS Physician requesting consult: Dr Pedroza HPI: Chief Complaint: Chest discomfort 85 yo woman with a relatively extensive CV history (see below) admitted with urinary retention to Dr Pedroza'kareem. This am, she has mid sternal and L parasternal discomfort, relieved with s/l NTG. The episode lasted nearly half an hour. Infrequently, at home, she has had similar episodes that have lasted much shorter than today's episode. Communication with her is somewhat difficult. She does understand everything, but has aphasia and responds with signs and through writing. As in the past, she wishes to be managed conservatively only She denies shortness of breath or palp or syncope or N/V/D or ankle swelling Review of Systems-Cardiology Review of Systems Constitutional: malaise tiredness Eyes: No vision change Ears/Nose/Throat: No nasal drainage, No recent hearing loss Respiratory: As described under HPI Cardiovascular: As described under HPI Gastrointestinal: As described under HPI Genitourinary: As described under HPI : No Musculoskeletal: back pain (chronic) Skin: No rash, No ulcerations Psychiatric/Neurological: focal weakness seizureNo syncope Hematologic: No bleeding abnormalities LCS-Lntavl-Vjuoyw Hx Patient Social History Marrital Status: Employed/Student: unemployed Alcohol Use: Denies Use Recreational Drug Use: No Smoking Status: Never a Smoker 2nd Hand Smoke Exposure: No Recent Foreign Travel: No Recent Infectious Disease Expo: No Physical Abuse Screen: No Sexual Abuse: No Immunizations Up To Date Tetanus Booster (TDap): Unknown Date of Pneumonia Vaccine: Apr 17, 2010 Date of Influenza Vaccine: Sep 06, 2014 Past Medical History PMH As described under Assessment. Family Medical History Family Medical History: She reports a family h/o CAD. Family History: Diabetes mellitus 19 MOTHER FH: cirrhosis G8 SISTER Myocardial infarction 19 FATHER 19 MOTHER G8 BROTHER G8 BROTHER G8 BROTHER G8 BROTHER G8 BROTHER G8 SISTER Allergies and Home Medications Allergies Coded Allergies: Penicillins (Verified Allergy, Unknown, 08/26/16) Sulfa (Sulfonamide Antibiotics) (Unverified Allergy, Unknown, 03/24/14) Home Medications Acetaminophen 500 Mg Tablet 500 MG PO Q6H PRN PRN PAIN (Reported) Alprazolam 0.25 Mg Tablet 0.25 MG PO BID (Reported) Apixaban 5 Mg Tablet 5 MG PO BID (Reported) Aspirin 81 Mg Tablet.dr 81 MG PO DAILY (Reported) Atorvastatin Calcium 40 Mg Tablet 40 MG PO HS (Reported) Cholecalciferol 1,000 Unit Tablet 1,000 UNIT PO DAILY (Reported) Desvenlafaxine Succinate 50 Mg Tab.sr.24h 50 MG PO DAILY (Reported) Fesoterodine Fumarate 4 Mg Tab.sr.24h 4 MG PO DAILY (Reported) Furosemide 40 Mg Tablet 40 MG PO DAILY (Reported) Isosorbide Mononitrate 30 Mg Tab.er.24h 30 MG PO DAILY (Reported) Levothyroxine Sodium 25 Mcg Tablet 25 MCG PO DAILY (Reported) Metoprolol Succinate 25 Mg Tab.er.24h 12.5 MG PO DAILY (Reported) TAKES 1/2 OF A (25 MG) TABLET [place]-3/Dha/Epa/Fish Oil 1 Each Capsule 1,000 MG PO DAILY (Reported) Pantoprazole Sodium 40 Mg Tablet.dr 40 MG PO DAILY (Reported) Perphenazine/Amitriptyline HCl 1 Each Tablet 1 TAB PO HS (Reported) Phenytoin Sodium Extended 100 Mg Capsule 100 MG PO BID (Reported) Potassium Chloride 20 Meq Tab.er.prt 20 MEQ PO DAILY (Reported) Sacubitril/Valsartan 1 Each Tablet 1 TAB PO BID (Reported) Sitagliptin Phosphate 50 Mg Tablet 50 MG PO DAILY (Reported) Spironolactone 25 Mg Tablet 25 MG PO DAILY (Reported) Physical Exam-Cardiology Physical Exam Vital Signs/I&O Vital Sign - Last 12Hours 08/30/16 08/30/16 08/30/16 00:00 04:00 08:00 Temp 98.3 98.2 98.1 Pulse 96 80 88 Resp 18 18 20 B/P 123/60 124/59 161/66 Pulse Ox 96 97 96 O2 Delivery Room Air Room Air Room Air Intake and Output 08/30/16 00:00 Intake Total 1040 ml Output Total 500 ml Balance 540 ml Capillary Refill : Less Than 3 Seconds Rectal: deferred Data Review Labs Laboratory Tests 08/30/16 05:40: Anion Gap 10, BUN/Creatinine Ratio 11, Blood Urea Nitrogen 11, Calcium Level 8.9 , Carbon Dioxide Level 29, Chloride Level 107, Creatinine 1.00, Estimat Glomerular Filtration Rate 53, Glucose Level 96, Hematocrit 38, Hemoglobin 12.6 , Mean Corpuscular Hemoglobin 33, Mean Corpuscular Hemoglobin Concent 33, Mean Corpuscular Volume 99, Mean Platelet Volume 10.4, Platelet Count 130, Potassium Level 3.6, Red Blood Count 3.81L, Red Cell Distribution Width 14.3, Sodium Level 146H, White Blood Count 4.7 08/30/16 08:29: Troponin I 0.39*H Laboratory Tests 08/29/16 04:36 08/30/16 05:40 ECG Impression ECG Comment ECG on 08/30/16: Sinus tach with voltage for LVH and with chronic ST and T abnormality that is diffuse and unchanged compared to previous ECG A/P-Cardiology Assessment/Admission Diagnosis Acute NSTEMI Acute urinary retention Chronic systolic and diastolic CHF Chronic renal insuff Echo of 05/24/16 shows anteroapical akinesis, LVEF 30%, LV and LA enlargement, severe MR, mod TR, aortic valve sclerosis without stenosis, PASP 45 mmHg, diastolic dysfunction of LV CAD with a h/o CABG, details unknown. 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 Has chronically been on apixaban , prob because of h/o DVT and PE in the past H/o DVT and PE in the past DM II Hyperlipidemia Hypertension with LVH Seizure disorder, treated with Dilantin Discussion and Recomendations * Management is complex due to multiple comorbidities * As in the past, today I had a detailed discussion with her regarding her CV issues, including this NSTEMI. She still wishes to be managed conservatively only * We will increase beta-edouard * Continue other meds, including meds for CHF * Monitor labs closely * I discussed her case with Dr Pedroza this morning Clinical Quality Measures DVT/VTE Risk/Contraindication: Risk Factor Score Per Nursin RFS Level Per Nursing on Admit: 4+=Very High Contraindications-Pharm: Other *list below* HATTIE BROWNING MD FACP FAC CCDS Aug 30, 2016 10:01
--- NOTE | 2016-08-30 12:19 | Progress Note-Urology ---
Progress Note-Urology Progress Notes/Assess & Plan Progress/Assessment & Plan VOIDING ON HER OWN, PVR 25CC, TOLERATES URECHOILNE WELL, KEEP ON IT Final Diagnosis URINE RETENTION ANGELIQUE BENAVIDES MD Aug 30, 2016 12:19 pm
[2016-08-30] MEDS: PERPHENAZINE 2 MG (TRILAFON) TAB PO SCH (20:56)
[2016-08-30] MEDS: ATORVASTATIN 40 MG (LIPITOR) TABLET PO SCH (20:57)
[2016-08-30] MEDS: AMITRIPTYLINE 25 MG (ELAVIL) TAB PO SCH (20:57)
[2016-08-31 00:56] VITALS: BP 112/53
[2016-08-31 04:05] VITALS: BP 127/59
--- NOTE | 2016-08-31 07:49 | Progress Note (SOAP) ---
Subjective Subjective/Events-last exam patient feeling better today. Patient not having any chest pain. Patient smiling. Acute non-ST elevated GA. Acute urinary retention. Congestive heart failure. Coronary artery disease. Patient feeling good today Objective Exam Vital Signs Date Time Temp Pulse Resp B/P Pulse Ox O2 Delivery O2 Flow Rate FiO2 08/31/16 04:05 99.4 71 18 127/59 94 Room Air 08/31/16 01:00 62 08/31/16 00:56 98.6 65 20 112/53 95 Room Air 08/30/16 19:51 99.2 71 20 131/61 97 Room Air 08/30/16 19:03 72 08/30/16 19:00 68 08/30/16 17:00 99.1 77 20 135/63 96 Room Air 08/30/16 13:45 77 18 133/61 97 Room Air 08/30/16 13:00 72 08/30/16 12:00 97.4 77 20 125/58 97 Room Air 08/30/16 08:55 90 18 134/61 96 Nasal Cannula 2.00 08/30/16 08:41 100 18 137/68 96 Nasal Cannula 2.00 08/30/16 08:36 104 18 114/56 96 Nasal Cannula 2.00 08/30/16 08:30 101 18 124/65 95 Room Air 08/30/16 08:10 98.4 115 18 192/102 98 Room Air 08/30/16 08:00 98.1 88 20 161/66 96 Room Air I & O 08/31/16 07:00 Intake Total 1940 ml Output Total 200 ml Balance 1740 ml Capillary Refill : Less Than 3 Seconds General Appearance: No Apparent Distress WD/WN HEENT: Normal ENT Inspection Neck: Full Range of Motion Normal Inspection Non Tender Supple Respiratory: Chest Non Tender Lungs Clear Normal Breath Sounds No Accessory Muscle Use No Respiratory Distress Cardiovascular: Regular Rate, Rhythm No Murmur Gastrointestinal: non tender soft Results Lab Laboratory Tests 08/30/16 08:29: Troponin I 0.39*H Assessment/Plan Assessment/Plan Assess & Plan/Chief Complaint urinary retention. Neurogenic positive. Hyperkalemia. Coronary artery disease. Depression. Diabetes. . 08/30/16. Urinary retention resolved. New-onset chest pain. Consult cardiology. Nitroglycerin given. EKG and troponin ordered. . 08/31/16. Acute urinary retention resolved. Nonelevated ST GA. coronary artery diseasearea Renal insufficiency history. Patient feeling better today. No chest pain today and smiling Diagnosis/Problems: Clinical Quality Measures DVT/VTE Risk/Contraindication: Risk Factor Score Per Nursin RFS Level Per Nursing on Admit: 4+=Very High Contraindications-Pharm: Other *list below* OUSMANE LONG DO Aug 31, 2016 07:49
[2016-08-31 08:00] VITALS: BP 161/67
[2016-08-31] MEDS: VENlafaxine XR 75 MG (EFFEXOR XR) CAP PO SCH (08:52)
[2016-08-31] MEDS: BETHANECHOL 25 MG (URECHOLINE) TAB PO SCH ×3 (08:52→16:15)
[2016-08-31] MEDS ORDERED: meTOproloL SUCCINATE 50 MG (TOPROL XL) TAB PO SCH (09:00)
[2016-08-31] MEDS: ISOSORBIDE MONONITRATE 30 MG (IMDUR) TAB PO SCH (09:26)
[2016-08-31] MEDS: FUROSEMIDE 40 MG (LASIX) TAB PO SCH (09:26)
[2016-08-31] MEDS: ALPRAZolam 0.25 MG (XANAX) TAB PO SCH (09:26)
[2016-08-31] MEDS: ASPIRIN E.C. 81 MG (ECOTRIN) TAB PO SCH (09:26)
[2016-08-31] MEDS: OMEGA 3 (FISH OIL) 1000 MG CAP PO SCH (09:26)
[2016-08-31] MEDS: SPIRONOLACTONE 25 MG (ALDACTONE) TAB PO SCH (09:26)
[2016-08-31] MEDS: sitaGLIPtin 50 MG (JANUVIA) TAB PO SCH (09:26)
[2016-08-31] MEDS: APIXABAN 5 MG (ELIQUIS) TABLET PO SCH (09:26)
[2016-08-31] MEDS: PANTOPRAZOLE 40 MG (PROTONIX) TAB PO SCH (09:26)
[2016-08-31] MEDS: VITAMIN D3 1,000 UNITS (CHOLECALCIFEROL) TABLET PO SCH (09:26)
[2016-08-31] MEDS: LEVOTHYROXINE 25 MCG (LEVOTHROID) TAB PO SCH (09:26)
[2016-08-31] MEDS: PHENYTOIN 100 MG (DILANTIN) CAP PO SCH (09:26)
[2016-08-31] MEDS: SACUBITRIL/VALSARTAN 24/26 MG (ENTRESTO) TABLET PO SCH (09:26)
[2016-08-31] MEDS: KCL 20 MEQ TAB (K-DUR) PO SCH (09:26)
[2016-08-31 09:54] LABS: MEAN PLATELET VOLUME 10.5 FL (7.4-10.4); RED BLOOD COUNT 3.68 10^6/uL (4.35-5.85); RED CELL DISTRIBUTION WIDTH 14.3 % (10.0-14.5); WHITE BLOOD COUNT 3.6 10^3/uL (4.3-11.0)
[2016-08-31 10:09] LABS: CALCIUM 8.7 MG/DL (8.5-10.1); CREATININE SERUM 1.1 MG/DL (0.60-1.30)
[2016-08-31 12:00] VITALS: BP 99/50
--- NOTE | 2016-08-31 13:20 | Progress Note-Urology ---
Progress Note-Urology Progress Notes/Assess & Plan Progress/Assessment & Plan voiding on her own, tolerates urecholine well ok too discharge and stay on it, off vesicare, and see me in 3 weeks Final Diagnosis urine retention ANGELIQUE BENAVIDES MD Aug 31, 2016 1:20 pm
--- NOTE | 2016-08-31 15:01 | Progress Note-Cardiology ---
Cardiology SOAP Progress Note Subjective: No c/o CP. No c/o shortness of breath or palpitations. Wants to go home. Objective: I&O/Vital Signs Vital Sign - Last 12Hours 08/31/16 08/31/16 08/31/16 04:05 08:00 12:00 Temp 99.4 98.2 98.3 Pulse 71 78 65 Resp 18 24 24 B/P 127/59 161/67 99/50 Pulse Ox 94 94 95 O2 Delivery Room Air Room Air Room Air Intake and Output 08/31/16 00:00 Intake Total 1740 ml Balance 1740 ml Weight (Pounds): 151 Weight (Ounces): 7.0 Weight (Calculated Kilograms): [id number] Constitutional: AAO x 3 Respiratory: No accessory muscle use, No respiratory distress, chest expansion is symmetric chest is bilaterally symmetric lungs clear to auscultation Cardiovascular: regular rate-rhythmNo JVD, S1 and S2 Gastrointestional: No tender, soft round Extremities: no lower extremity edema bilateral Neurologic/Psychiatric: other (aphasic, right sided weakness) Results/Procedures: Labs Laboratory Tests 08/31/16 09:35: Anion Gap 10, BUN/Creatinine Ratio 11, Blood Urea Nitrogen 12, Calcium Level 8.7 , Carbon Dioxide Level 27, Chloride Level 105, Creatinine 1.10, Estimat Glomerular Filtration Rate 47, Glucose Level 174H, Hematocrit 37, Hemoglobin 12.2, Mean Corpuscular Hemoglobin 33, Mean Corpuscular Hemoglobin Concent 33, Mean Corpuscular Volume 100H, Mean Platelet Volume 10.5H, Platelet Count 117L, Potassium Level 3.0L, Red Blood Count 3.68L, Red Cell Distribution Width 14.3, Sodium Level 142, White Blood Count 3.6L A/P: Assessment: Acute NSTEMI Acute urinary retention - managed per Dr. George Chronic systolic and diastolic CHF - clinically compensated Chronic renal insuff Echo of 05/24/16 shows anteroapical akinesis, LVEF 30%, LV and LA enlargement, severe MR, mod TR, aortic valve sclerosis without stenosis, PASP 45 mmHg, diastolic dysfunction of LV CAD with a h/o CABG, details unknown. She thinks it was at 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 Has chronically been on apixaban , prob because of h/o DVT and PE in the past H/o DVT and PE in the past DM II Hyperlipidemia Hypertension with LVH Seizure disorder, treated with Dilantin Plan: * Management is complex due to multiple comorbidities * As in the past,Dr. Adan had a detailed discussion with her regarding her CV issues, including this NSTEMI. She still wishes to be managed conservatively only * We will continue increased beta-edouard * Continue other meds, including meds for CHF * Monitor labs closely * No further c/o CP. OK to discharge home today with outpt f/u Physician Assessment Physician Assessment She still wishes to be managed conservatively only and wishes to go home Lungs: clear Cor: reg A&R * As documented in our note above * I spoke with her and her daughter and answered questions LEONARD ZAFAR FIRE PROTECTION EQUIPMENT TECHNICIAN Aug 31, 2016 15:01 HATTIE ADAN MD FACP FAC CCDS Aug 31, 2016 15:38
[2016-08-31] MEDS ORDERED: METO-272 PO (15:03)
[2016-08-31] MEDS ORDERED: BETH25TA11 PO (15:58)
[2016-08-31 16:25] VITALS: BP 99/50
--- NOTE | 2016-09-04 07:13 | Discharge Summary ---
Diagnosis/Chief Complaint Date of Admission Aug 30, 2016 at 12:50 Date of Discharge Aug 31, 2016 at 16:25 Discharge Date: Aug 31, 2016 Admission Diagnosis Admission Diagnosis urinary retention. Coronary artery disease. Angina history. Diabetes. Anxiety. Frightened. Discharge Diagnosis urinary retention. Acute [place] area Coronary artery disease. Dysphagia. Previous stroke. Chronic systolic and diastolic CHF. Angina. Chronic renal insufficiency Reason Hospital Visit patient has been out to the emergency room twice for urinary retention. Patient lives alone now. Patient previously had a stroke and unable to talk. Patient has history of coronary artery disease, and angina, CHF. Patient is frightened and anxious by living alone Discharge Summary Consultations urology. Cardiology Discharge Physical Examination Allergies: Coded Allergies: Penicillins (Verified Allergy, Unknown, 08/26/16) Sulfa (Sulfonamide Antibiotics) (Unverified Allergy, Unknown, 03/24/14) Vitals & I&Os Vital Signs Date Time Temp Pulse Resp B/P Pulse Ox O2 Delivery O2 Flow Rate FiO2 08/31/16 16:25 65 24 99/50 95 2.00 08/31/16 12:00 98.3 Room Air Hospital Course patient and family wants conservative management. Patient does not wish coronary angiography Labs (last 24 hrs) Laboratory Tests 08/27/16 18:35: Alanine Aminotransferase (ALT/SGPT) 24, Albumin 3.6, Alkaline Phosphatase 69, Anion Gap 13, Aspartate Amino Transf (AST/SGOT) 27, B-Type Natriuretic Peptide 500.8H, BUN/Creatinine Ratio 11, Basophils # (Auto) 0.0, Basophils (%) (Auto) 1 , Blood Urea Nitrogen 13, Calcium Level 8.8, Carbon Dioxide Level 25, Chloride Level 107, Creatinine 1.14, Eosinophils # (Auto) 0.1, Eosinophils (%) (Auto) 4, Estimat Glomerular Filtration Rate 45, Glucose Level 99, Hematocrit 36, Hemoglobin 11.7, Lymphocytes # (Auto) 1.1, Lymphocytes (%) (Auto) 33, Mean Corpuscular Hemoglobin 33, Mean Corpuscular Hemoglobin Concent 33, Mean Corpuscular Volume 99, Mean Platelet Volume 10.9H, Monocytes # (Auto) 0.5, Monocytes (%) (Auto) 14H, Neutrophils # (Auto) 1.7L, Neutrophils (%) (Auto) 48, Platelet Count 141, Potassium Level 3.5L, Red Blood Count 3.58L, Red Cell Distribution Width 14.5, Sodium Level 145, Total Bilirubin 0.4, Total Protein 5.9L, Troponin I 0.40*H, White Blood Count 3.4L 08/28/16 04:12: Anion Gap 12, B-Type Natriuretic Peptide 544.8H, BUN/Creatinine Ratio 12, Basophils # (Auto) 0.0, Basophils (%) (Auto) 0, Blood Urea Nitrogen 13, Calcium Level 8.7, Carbon Dioxide Level 26, Chloride Level 106, Creatinine 1.06, Eosinophils # (Auto) 0.1, Eosinophils (%) (Auto) 2, Estimat Glomerular Filtration Rate 49, Glucose Level 116H, Hematocrit 34L, Hemoglobin 11.4L, Lymphocytes # (Auto) 1.1, Lymphocytes (%) (Auto) 22, Mean Corpuscular Hemoglobin 33, Mean Corpuscular Hemoglobin Concent 33, Mean Corpuscular Volume 99, Mean Platelet Volume 11.1H, Monocytes # (Auto) 0.5, Monocytes (%) (Auto) 11 , Neutrophils # (Auto) 3.1, Neutrophils (%) (Auto) 65, Platelet Count 122L, Potassium Level 3.0L, Red Blood Count 3.46L, Red Cell Distribution Width 14.4, Sodium Level 144, White Blood Count 4.8 08/29/16 04:36: Anion Gap 9, BUN/Creatinine Ratio 12, Blood Urea Nitrogen 11, Calcium Level 8.8 , Carbon Dioxide Level 29, Chloride Level 107, Creatinine 0.93, Estimat Glomerular Filtration Rate 57, Glucose Level 94, Hematocrit 35, Hemoglobin 11.7 , Mean Corpuscular Hemoglobin 33, Mean Corpuscular Hemoglobin Concent 33, Mean Corpuscular Volume 99, Mean Platelet Volume 10.6H, Platelet Count 116L, Potassium Level 2.8L, Red Blood Count 3.54L, Red Cell Distribution Width 14.4, Sodium Level 145, White Blood Count 3.3L 08/30/16 05:40: Anion Gap 10, BUN/Creatinine Ratio 11, Blood Urea Nitrogen 11, Calcium Level 8.9 , Carbon Dioxide Level 29, Chloride Level 107, Creatinine 1.00, Estimat Glomerular Filtration Rate 53, Glucose Level 96, Hematocrit 38, Hemoglobin 12.6 , Mean Corpuscular Hemoglobin 33, Mean Corpuscular Hemoglobin Concent 33, Mean Corpuscular Volume 99, Mean Platelet Volume 10.4, Platelet Count 130, Potassium Level 3.6, Red Blood Count 3.81L, Red Cell Distribution Width 14.3, Sodium Level 146H, White Blood Count 4.7 08/30/16 08:29: Troponin I 0.39*H 08/31/16 09:35: Anion Gap 10, BUN/Creatinine Ratio 11, Blood Urea Nitrogen 12, Calcium Level 8.7 , Carbon Dioxide Level 27, Chloride Level 105, Creatinine 1.10, Estimat Glomerular Filtration Rate 47, Glucose Level 174H, Hematocrit 37, Hemoglobin 12.2, Mean Corpuscular Hemoglobin 33, Mean Corpuscular Hemoglobin Concent 33, Mean Corpuscular Volume 100H, Mean Platelet Volume 10.5H, Platelet Count 117L, Potassium Level 3.0L, Red Blood Count 3.68L, Red Cell Distribution Width 14.3, Sodium Level 142, White Blood Count 3.6L Laboratory Tests 08/27/16 18:35 08/28/16 04:12 08/29/16 04:36 08/30/16 05:40 08/31/16 09:35 Pending Labs Laboratory Tests 08/27/16 18:35: Alanine Aminotransferase (ALT/SGPT) 24, Albumin 3.6, Alkaline Phosphatase 69, Anion Gap 13, Aspartate Amino Transf (AST/SGOT) 27, B-Type Natriuretic Peptide 500.8, BUN/Creatinine Ratio 11, Basophils # (Auto) 0.0, Basophils (%) (Auto) 1, Blood Urea Nitrogen 13, Calcium Level 8.8, Carbon Dioxide Level 25, Chloride Level 107, Creatinine 1.14, Eosinophils # (Auto) 0.1, Eosinophils (%) (Auto) 4, Estimat Glomerular Filtration Rate 45, Glucose Level 99, Hematocrit 36, Hemoglobin 11.7, Lymphocytes # (Auto) 1.1, Lymphocytes (%) (Auto) 33, Mean Corpuscular Hemoglobin 33, Mean Corpuscular Hemoglobin Concent 33, Mean Corpuscular Volume 99, Mean Platelet Volume 10.9, Monocytes # (Auto) 0.5, Monocytes (%) (Auto) 14, Neutrophils # (Auto) 1.7, Neutrophils (%) (Auto) 48, Platelet Count 141, Potassium Level 3.5, Red Blood Count 3.58, Red Cell Distribution Width 14.5, Sodium Level 145, Total Bilirubin 0.4, Total Protein 5.9, Troponin I 0.40, White Blood Count 3.4 08/28/16 04:12: Anion Gap 12, B-Type Natriuretic Peptide 544.8, BUN/Creatinine Ratio 12, Basophils # (Auto) 0.0, Basophils (%) (Auto) 0, Blood Urea Nitrogen 13, Calcium Level 8.7, Carbon Dioxide Level 26, Chloride Level 106, Creatinine 1.06, Eosinophils # (Auto) 0.1, Eosinophils (%) (Auto) 2, Estimat Glomerular Filtration Rate 49, Glucose Level 116, Hematocrit 34, Hemoglobin 11.4, Lymphocytes # (Auto) 1.1, Lymphocytes (%) (Auto) 22, Mean Corpuscular Hemoglobin 33, Mean Corpuscular Hemoglobin Concent 33, Mean Corpuscular Volume 99, Mean Platelet Volume 11.1, Monocytes # (Auto) 0.5, Monocytes (%) (Auto) 11, Neutrophils # (Auto) 3.1, Neutrophils (%) (Auto) 65, Platelet Count 122, Potassium Level 3.0, Red Blood Count 3.46, Red Cell Distribution Width 14.4, Sodium Level 144, White Blood Count 4.8 08/29/16 04:36: Anion Gap 9, BUN/Creatinine Ratio 12, Blood Urea Nitrogen 11, Calcium Level 8.8 , Carbon Dioxide Level 29, Chloride Level 107, Creatinine 0.93, Estimat Glomerular Filtration Rate 57, Glucose Level 94, Hematocrit 35, Hemoglobin 11.7 , Mean Corpuscular Hemoglobin 33, Mean Corpuscular Hemoglobin Concent 33, Mean Corpuscular Volume 99, Mean Platelet Volume 10.6, Platelet Count 116, Potassium Level 2.8, Red Blood Count 3.54, Red Cell Distribution Width 14.4, Sodium Level 145, White Blood Count 3.3 08/30/16 05:40: Anion Gap 10, BUN/Creatinine Ratio 11, Blood Urea Nitrogen 11, Calcium Level 8.9 , Carbon Dioxide Level 29, Chloride Level 107, Creatinine 1.00, Estimat Glomerular Filtration Rate 53, Glucose Level 96, Hematocrit 38, Hemoglobin 12.6 , Mean Corpuscular Hemoglobin 33, Mean Corpuscular Hemoglobin Concent 33, Mean Corpuscular Volume 99, Mean Platelet Volume 10.4, Platelet Count 130, Potassium Level 3.6, Red Blood Count 3.81, Red Cell Distribution Width 14.3, Sodium Level 146, White Blood Count 4.7 08/30/16 08:29: Troponin I 0.39 08/31/16 09:35: Anion Gap 10, BUN/Creatinine Ratio 11, Blood Urea Nitrogen 12, Calcium Level 8.7 , Carbon Dioxide Level 27, Chloride Level 105, Creatinine 1.10, Estimat Glomerular Filtration Rate 47, Glucose Level 174, Hematocrit 37, Hemoglobin 12.2 , Mean Corpuscular Hemoglobin 33, Mean Corpuscular Hemoglobin Concent 33, Mean Corpuscular Volume 100, Mean Platelet Volume 10.5, Platelet Count 117, Potassium Level 3.0, Red Blood Count 3.68, Red Cell Distribution Width 14.3, Sodium Level 142, White Blood Count 3.6 Discussion & Recommendations patient feeling good. Patient having no chest pain Discharge Home Medications: Active Scripts Active Urecholine (Bethanechol Chloride) 25 Mg Tablet 25 Mg PO ACHS 28 Days Metoprolol Succinate 50 Mg Tab.er.24h 50 Mg PO DAILY Reported Alprazolam 0.25 Mg Tablet 0.25 Mg PO BID Eliquis (Apixaban) 5 Mg Tablet 5 Mg PO BID Entresto 24 mg-26 mg Tablet (Sacubitril/Valsartan) 1 Each Tablet 1 Tab PO BID Spironolactone 25 Mg Tablet 25 Mg PO DAILY Aspirin EC (Aspirin) 81 Mg Tablet.dr 81 Mg PO DAILY Januvia (Sitagliptin Phosphate) 50 Mg Tablet 50 Mg PO DAILY Pristiq (Desvenlafaxine Succinate) 50 Mg Tab.sr.24h 50 Mg PO DAILY Furosemide 40 Mg Tablet 40 Mg PO DAILY Potassium Chloride 20 Meq Tab.er.prt 20 Meq PO DAILY Isosorbide Mononitrate ER (Isosorbide Mononitrate) 30 Mg Tab.er.24h 30 Mg PO DAILY Pantoprazole Sodium 40 Mg Tablet.dr 40 Mg PO DAILY Levothyroxine Sodium 25 Mcg Tablet 25 Mcg PO DAILY Atorvastatin Calcium 40 Mg Tablet 40 Mg PO HS Perphen-Amitrip 2 mg-25 mg Tab (Perphenazine/Amitriptyline HCl) 1 Each Tablet 1 Tab PO HS Phenytoin Sodium Extended 100 Mg Capsule 100 Mg PO BID Fish Oil 1,000 mg Softgel ([place]-3/Dha/Epa/Fish Oil) 1 Each Capsule 1,000 Mg PO DAILY Tylenol (Acetaminophen) 500 Mg Tablet 500 Mg PO Q6H PRN Vitamin D (Cholecalciferol) 1,000 Unit Tablet 1,000 Unit PO DAILY Instructions to patient/family Please see electonic discharge instructions given to patient. Clinical Quality Measures DVT/VTE Risk/Contraindication: Risk Factor Score Per Nursin RFS Level Per Nursing on Admit: 4+=Very High Contraindications-Pharm: Other *list below* OUSMANE LONG DO Sep 04, 2016 07:13
== END 2016-08-31 16:25 | disposition home or self-care (01) | DRG 281 ==
LOC: EDUNIT# 17:48 → ER 17:49 → UNDOADMOB 21:05 → 4TH 21:05 → OBSVTOIN 08-30 12:50
PROVIDERS: ADMIT Family Medicine; ATTEND Family Medicine
DX: I21.4 Non-ST elevation (NSTEMI) myocardial infarction (principal); I13.0 Hypertensive heart and chronic kidney disease with heart failure and stage 1 through stage 4 chronic kidney disease, or unspecified chronic kidney disease; I50.22 Chronic systolic (congestive) heart failure; N18.9 Chronic kidney disease, unspecified; R33.9 Retention of urine, unspecified; N31.9 Neuromuscular dysfunction of bladder, unspecified; I25.5 Ischemic cardiomyopathy; E87.6 Hypokalemia; Z66 Do not resuscitate; I69.351 Hemiplegia and hemiparesis following cerebral infarction affecting right dominant side; I69.320 Aphasia following cerebral infarction; E11.22 Type 2 diabetes mellitus with diabetic chronic kidney disease; E78.5 Hyperlipidemia, unspecified; G40.909 Epilepsy, unspecified, not intractable, without status epilepticus; F41.9 Anxiety disorder, unspecified; F32.9 Major depressive disorder, single episode, unspecified; Z95.1 Presence of aortocoronary bypass graft; Z79.84 Long term (current) use of oral hypoglycemic drugs; Z86.718 Personal history of other venous thrombosis and embolism; Z86.711 Personal history of pulmonary embolism
CPT/HCPCS: 36415; 51702; 71010; 74176; 80048; 80053; 83880; 84484; 85025; 85027; 93005; G0378